=== PATIENT | female | born 1960 | race Caucasian/White ===

== ENCOUNTER 2016-08-20 13:43 | Emergency (ER) | payer OTHER ==
[2016-08-20] MEDS ORDERED: SODIUM CHLORIDE 0.9% 1,000 ML IV STA (14:52)
[2016-08-20] MEDS ORDERED: ONDANSETRON 4 MG/2 ML VIAL IVP STA (14:52)
--- NOTE | 2016-08-20 14:57 | ED ---
General Adult HPI - General Chief complaint: Upper Respiratory Infection Stated complaint: NVD Time Seen by Provider: 08/20/16 14:38 Source: patient, RN notes reviewed Mode of arrival: ambulatory Limitations: no limitations - History of Present Illness Initial comments: Patient is a 56-year-old female who presents emergency room today with multiple complaints. Patient does admit that she has had symptoms of nausea with diarrhea off and on over the last 6 weeks. Patient admits that she's also felt congested with cough and positive sputum production on and off over the last 6 weeks. States she's follow-up the family doctor's had been on 2 rounds of antibiotics with no relief of his symptoms. She states feels like she is not getting any better. She does admit to some cramping in her abdomen. She denies any other complaints or associated symptoms at this time. Patient denies any recent fever, chills, shortness of breath, chest pain, vomiting, numbness or tingling, dysuria or hematuria, constipation, headaches or visual changes, or any other complaints. - Related Data Home Medications Medication Instructions Recorded Confirmed traMADol HCl [Ultram] 50 mg PO BID PRN 07/16/16 08/20/16 Previous Rx's Medication Instructions Recorded Ondansetron Odt [Zofran ODT] 4 mg PO Q8HR PRN #15 tab 08/20/16 Allergies Allergy/AdvReac Type Severity Reaction Status Date / Time codeine Allergy Vomiting Verified 08/20/16 15:08 iron dextran complex Allergy Anaphylaxis Verified 08/20/16 15:08 [From Infed] Review of Systems ROS Statement: Those systems with pertinent positive or pertinent negative responses have been documented in the HPI. ROS Other: All systems not noted in ROS Statement are negative. Past Medical History History of Any Multi-Drug Resistant Organisms: None Reported Past Surgical History: Appendectomy, Bariatric Surgery, Cholecystectomy, Orthopedic Surgery Past Psychological History: No Psychological Hx Reported Smoking Status: Never smoker General Exam - General Exam Comments Initial Comments: General: The patient is awake and alert, in no distress, and does not appear acutely ill. Eye: Pupils are equal, round and reactive to light, extra-ocular movements are intact. No nystagmus. There is normal conjunctiva bilaterally. No signs of icterus. Ears, nose, mouth and throat: There are moist mucous membranes and no oral lesions. Neck: The neck is supple, there is no tenderness or JVD. Cardiovascular: There is a regular rate and rhythm. No murmur, rub or gallop is appreciated. Respiratory: Lungs are clear to auscultation, respirations are non-labored, breath sounds are equal. No wheezes, stridor, rales, or rhonchi. Gastrointestinal: Soft, non-distended, non-tender abdomen without masses or organomegaly noted. There is no rebound or guarding present. No CVA tenderness. Bowel sounds are unremarkable. Musculoskeletal: Normal ROM, no tenderness. Strength 5/5. Sensation intact. Pulses equal bilaterally 2+. Neurological: A&O x 3. CN II-XII intact, There are no obvious motor or sensory deficits. Coordination appears grossly intact. Speech is normal. Skin: Skin is warm and dry and no rashes or lesions are noted. Psychiatric: Cooperative, appropriate mood & affect, normal judgment. Limitations: no limitations Course Vital Signs 08/20/16 08/20/16 14:03 15:29 Temperature 100.3 F H 98.4 F Pulse Rate 77 68 Respiratory 18 15 Rate Blood Pressure 123/75 125/78 O2 Sat by Pulse 98 Oximetry Medical Decision Making - Medical Decision Making Patient reexamined at this time shows no signs of distress. Patient resting comfortably in the stretcher. States she does feel better after IV fluids and nausea medication here the emergency room. She does admit that the symptoms been off and on over the last 6 weeks. Patient's chest x-rays unremarkable. Bowel x-rays is nonspecific. Patient's labs been reviewed. Patient feeling better with nausea medication will be discharged home in same. Was discussed about the possibility of acid reflux causing her cough. Advised to try omeprazole prior psych for this. Advised to follow-up the family doctor over the next 2 days. Will be given nausea medication to go home with. Advised return if any symptoms increase or worsen. - Lab Data Result diagrams: 08/20/16 15:30 08/20/16 15:30 Lab Results 08/20/16 08/20/16 08/20/16 Range/Units 15:30 15:30 15:30 WBC 5.0 (3.8-10.6) k/uL RBC 5.17 (3.80-5.40) m/uL Hgb 11.9 (11.4-16.0) gm/dL Hct 41.0 (34.0-46.0) % MCV 79.3 L (80.0-100.0) fL MCH 23.0 L (25.0-35.0) pg MCHC 29.0 L (31.0-37.0) g/dL RDW 26.9 H (11.5-15.5) % Plt Count 365 (150-450) k/uL Neutrophils % 79 % Lymphocytes % 15 % Monocytes % 4 % Eosinophils % 1 % Basophils % 0 % Neutrophils # 3.9 (1.3-7.7) k/uL Lymphocytes # 0.7 L (1.0-4.8) k/uL Monocytes # 0.2 (0-1.0) k/uL Eosinophils # 0.0 (0-0.7) k/uL Basophils # 0.0 (0-0.2) k/uL Hypochromasia Marked Poikilocytosis Slight Anisocytosis Marked Microcytosis Marked Sodium 142 (137-145) mmol/L Potassium 4.0 (3.5-5.1) mmol/L Chloride 105 (98-107) mmol/L Carbon Dioxide 25 (22-30) mmol/L Anion Gap 12 mmol/L BUN 14 (7-17) mg/dL Creatinine 0.61 (0.52-1.04) mg/dL Est GFR (MDRD) Af Amer >60 (>60 ml/min/1.73 sqM) Est GFR (MDRD) Non-Af >60 (>60 ml/min/1.73 sqM) Glucose 107 H (74-99) mg/dL Plasma Lactic Acid Nicholas 0.7 (0.7-2.0) mmol/L Calcium 8.6 (8.4-10.2) mg/dL Total Bilirubin 0.4 (0.2-1.3) mg/dL AST 20 (14-36) U/L ALT 34 (9-52) U/L Alkaline Phosphatase 122 (38-126) U/L Total Protein 6.4 (6.3-8.2) g/dL Albumin 3.5 (3.5-5.0) g/dL Amylase 40 (30-110) U/L Lipase 93 (23-300) U/L Disposition Clinical Impression: Nausea, Acute diarrhea, Cough Disposition: HOME SELF-CARE Condition: Good Instructions: Acute Nausea and Vomiting (ED) Additional Instructions: Please use medication as prescribed follow-up family doctor over the next 2-5 days. Please return to emergency room if any symptoms increase or worsen or for any other concerns. Prescriptions: Ondansetron Odt [Zofran ODT] 4 mg PO Q8HR PRN #15 tab PRN Reason: Nausea Time of Disposition: 16:39
[2016-08-20 15:30] VITALS: BP 125/78; TEMP 98.4
--- NOTE | 2016-08-20 16:05 | XR ---
EXAMINATION TYPE: XR chest 2V DATE OF EXAM: 08/20/2016 3:59 PM COMPARISON: 06/27/2010 INDICATION: Congestion body aches TECHNIQUE: Frontal and lateral views of the chest are obtained. FINDINGS: The heart size is normal. The pulmonary vasculature is normal. The lungs are clear. IMPRESSION: 1. No acute pulmonary process.
--- NOTE | 2016-08-20 16:08 | XR ---
EXAMINATION TYPE: XR KUB DATE OF EXAM: 08/20/2016 3:59 PM COMPARISON: 06/27/2010 INDICATION: Pain TECHNIQUE: Single view abdomen upright view FINDINGS: There is a normal bowel gas pattern. Psoas margins are normal. No organomegaly is present. No suspicious air-fluid levels or differential air-fluid levels are present. No free air is present. No mass effect is evident. IMPRESSION: 1. Unremarkable Abdomen
[2016-08-20 16:11] LABS: Anisocytosis Marked; Basophils % (A) 0 %; CH 23.3; Eosinophils % (A) 1 %; HDW 3.44; HGB 11.9 gm/dL (11.4-16.0); Hypochromasia Marked; Luc # (Auto) 0.08; Luc % (Auto) 2; Lymphocytes # (A) 0.7 k/uL (1.0-4.8); Lymphocytes % (A) 15 %; MCV 79.3 fL (80.0-100.0); Mean Platelet Volume 6.3; Microcytosis Marked; Monocytes # (A) 0.2 k/uL (0-1.0); Monocytes % (A) 4 %; Neutrophils # (A) 3.9 k/uL (1.3-7.7); Neutrophils % (A) 79 %; Poikilocytosis Slight; RBC 5.17 m/uL (3.80-5.40); WBC (Perox) 5.38
[2016-08-20 16:12] LABS: RDW 26.9 % (11.5-15.5)
[2016-08-20 16:13] LABS: ALT 34 U/L (9-52); AST 20 U/L (14-36); Alkaline Phosphatase 122 U/L (38-126); Amylase 40 U/L (30-110); Anion Gap 12 mmol/L; Blood Urea Nitrogen 14 mg/dL (7-17); Calcium 8.6 mg/dL (8.4-10.2); Carbon Dioxide 25 mmol/L (22-30); Chloride 105 mmol/L (98-107); Glucose 107 mg/dL (74-99); Non-African American GFR(MDRD) >60 (>60 ml/min/1.73 sqM); Sodium 142 mmol/L (137-145); Total Bilirubin 0.4 mg/dL (0.2-1.3); Total Protein 6.4 g/dL (6.3-8.2)
[2016-08-20 17:09] VITALS: PULSE 69; RESP 16
== END 2016-08-20 17:09 | disposition home or self-care (01) ==
LOC: EC 13:43
DX: R11.2 Nausea with vomiting, unspecified (principal); R19.7 Diarrhea, unspecified; R05 Cough; Z88.5 Allergy status to narcotic agent; Z88.8 Allergy status to other drugs, medicaments and biological substances
CPT/HCPCS: 99284; 96374; 96361; 36415; 80053; 82150; 83605; 83690; 85025; 71020; 74000; J2405

== ENCOUNTER → 2016-09-10 | Outpatient (CLI) | payer OTHER ==
--- NOTE | 2016-09-11 08:43 | MR ---
EXAMINATION TYPE: MR lumbar spine wo con DATE OF EXAM: 09/10/2016 5:25 PM COMPARISON: 01/09/2010 HISTORY: Back pain TECHNIQUE: Multiplanar, multisequence images of the lumbar spine were acquired. L1-L2: Normal disc appearance without desiccation. No herniation, protrusion or disc bulging. No ca nal stenosis is present. Foramina are patent bilaterally. L2-L3: Disc desiccation with interval development of a broad-based central disc herniation and modera te effacement of thecal sac. Moderate facet arthropathy and mild bilateral foraminal encroachment. L3-L4: No disc herniation or canal stenosis. There is facet arthropathy. Mild left lateral disc bulgi ng with mild left foraminal encroachment. L4-L5: Disc desiccation with broad-based central disc protrusion and moderate effacement of thecal sa c. This is progressed from the previous exam with mild central stenosis. Moderate facet arthropathy a nd mild bilateral foraminal encroachment greater on the right L5-S1: Facet arthropathy and degenerative disc disease. No canal stenosis or foraminal encroachment. Stable broad-based right paracentral and lateral disc bulging Lumbar segments are intact. No paraspinal masses are identified. Conus medullaris has a normal appe arance. IMPRESSION: 1. Interval development of a focal central disc herniation L2-L3 with moderate effacement of thecal s ac 2. Interval development of left lateral disc bulging L3-L4 with mild foraminal encroachment but no ne rve root impingement. 3. Broad-based disc bulge or protrusion L4-L5 progressed with facet arthropathy and evidence of mild central canal stenosis. 4. Stable right paracentral disc bulging L5-S1 no canal stenosis. No nerve root impingement.
== END | disposition home or self-care (01) ==
LOC: RADMRIMAIN 16:40
PROVIDERS: ATTEND Anesthesiology Pain Medicine
DX: M48.06 Spinal stenosis, lumbar region (principal); M51.17 Intervertebral disc disorders with radiculopathy, lumbosacral region; M46.96 Unspecified inflammatory spondylopathy, lumbar region
CPT/HCPCS: 72148

== ENCOUNTER → 2017-03-04 | Outpatient (CLI) | payer OTHER ==
--- NOTE | 2017-03-05 08:18 | MM ---
Reason for exam: screening (asymptomatic). Last mammogram was performed 5 years and 1 month ago. History: Patient is postmenopausal. Physical Findings: A clinical breast exam by your physician is recommended on an annual basis and results should be correlated with mammographic findings. MG Screening Mammo w CAD Bilateral CC and MLO view(s) were taken. Prior study comparison: February 05, 2012, bilateral digital screening mammo w/CAD. There are scattered fibroglandular densities. Finding: There are typically benign vascular calcifications in the outer quadrant, posterior position of both breasts. There is no discrete abnormality. ASSESSMENT: Benign, BI-RAD 2 RECOMMENDATION: Routine screening mammogram of both breasts in 1 year.
== END | disposition home or self-care (01) ==
LOC: RADMAMWWP 14:43
PROVIDERS: ATTEND Family Medicine
DX: Z12.31 Encounter for screening mammogram for malignant neoplasm of breast (principal)

== ENCOUNTER → 2017-04-09 | Outpatient (CLI) | payer OTHER ==
--- NOTE | 2017-04-10 10:43 | ECHOF ---
Referral Reason:I34.1 hx mitrovalve prolapse MEASUREMENTS -------- HEIGHT: 165.1 cm WEIGHT: 77.1 kg BP: 127/60 RVIDd: 2.9 cm (< 3.3) IVSd: 1.2 cm (0.6 - 1.1) LVIDd: 4.1 cm (3.9 - 5.3) LVPWd: 0.9 cm (0.6 - 1.1) EDV(Teich): 74 ml IVSs: 1.5 cm LVIDs: 3.0 cm LVPWs: 1.5 cm %IVS Thck: 20 % ESV(Teich): 34 ml EF(Teich): 54 % %FS: 27 % SV(Teich): 40 ml LALs A4C: 4.9 cm LAAs A4C: 14.7 cm LAESV A-L A4C: 37 ml LAESV MOD A4C: 37 ml LALs A2C: 5.5 cm LAAs A2C: 17.3 cm LAESV A-L A2C: 46 ml LAESV MOD A2C: 42 ml LAESV(A-L): 44 ml LAESV Index (A-L): 23.54 ml/m Ao Diam: 2.7 cm (2.0 - 3.7) AV Cusp: 1.8 cm (1.5 - 2.6) LA Diam: 2.7 cm (2.7 - 3.8) MV EXCURSION: 21.258 mm (> 18.000) MV EF SLOPE: 92 mm/s (70 - 150) EPSS: 0.6 cm MV E Kristopher: 0.58 m/s MV DecT: 348 ms MV Dec [place]: 1.7 m/s MV A Kristopher: 0.51 m/s MV E/A Ratio: 1.15 MV PHT: 101 ms E/E': 9.07 E': 0.06 m/s AV Vmax: 1.37 m/s AV maxP.48 mmHg TR Vmax: 2.59 m/s TR maxP.76 mmHg RAP: 5.00 mmHg RVSP: 31.76 mmHg FINDINGS -------- Sinus rhythm. This was a technically adequate study. Patient was in moderate pain during test. Overall left ventricular systolic function is normal with, an EF between 55 - 60 %. The right ventricle is normal in size and function. Normal LA size by volume 22+/-6 ml/m2. The right atrium is normal in size. Aortic valve is trileaflet and is mildly thickened. There is no evidence of aortic regurgitation. There is no evidence of aortic stenosis. Mild mitral annular calcification present. There is trace to mild mitral regurgitation. Trace tricuspid regurgitation present. There is no evidence of pulmonary hypertension. The right ventricular systolic pressure, as measured by Doppler, is 31.76mmHg. The pulmonic valve was not well visualized. The aortic root size is normal. Normal inferior vena cava with normal inspiratory collapse consistent with estimated right atrial pressure of 5 mmHg. The pericardium is normal. There is no pericardial effusion. CONCLUSIONS -------- 1. Sinus rhythm. 2. There is no evidence of pulmonary hypertension. 3. The right ventricular systolic pressure, as measured by Doppler, is 31.76mmHg. 4. The pulmonic valve was not well visualized. 5. The aortic root size is normal. 6. There is no pericardial effusion. 7. This was a technically adequate study. 8. Patient was in moderate pain during test. 9. Overall left ventricular systolic function is normal with, an EF between 55 - 60 %. 10. Normal LA size by volume 22+/-6 ml/m2. 11. Aortic valve is trileaflet and is mildly thickened. 12. Mild mitral annular calcification present. 13. There is trace to mild mitral regurgitation. 14. Trace tricuspid regurgitation present. CUSHION COVER INSPECTOR: Jose Ruvalcaba RDCS
== END | disposition home or self-care (01) ==
LOC: RADECHMAIN 15:38
PROVIDERS: ATTEND Family Medicine
DX: I08.3 Combined rheumatic disorders of mitral, aortic and tricuspid valves (principal)
CPT/HCPCS: 93306

== ENCOUNTER 2017-07-07 06:29 | Day surgery (SDC) | payer OTHER ==
[2017-07-01 16:02] VITALS: BMI 29.9
[2017-07-07] MEDS ORDERED: LACTATED RINGERS 1,000 ML IV ONE (06:53)
[2017-07-07 06:56] VITALS: TEMP 97
[2017-07-07 07:04] LABS: Glucose,Whole Blood 91 mg/dL (75-99)
[2017-07-07] MEDS ORDERED: LACTATED RINGERS 1,000 ML IV SCH (07:30)
--- NOTE | 2017-07-07 08:07 | P.PCN ---
Date of Procedure: 07/07/17 Surgeon: Pedrito Majano Pathology: none sent Condition: stable Disposition: PACU Description of Procedure: PREOPERATIVE DIAGNOSIS: Lumbar spondylosis without myelopathy and facet arthropathy. POSTOPERATIVE DIAGNOSIS: Lumbar spondylosis without myelopathy and facet arthropathy. PROCEDURE DESCRIPTION: Patient presents for L3-L4, L4-L5 and L5-S1 diagnostic medial branch blocks under fluoroscopic guidance. The procedure is performed using fluoroscopic guidance during needle placement to assure proper position and maximize safety. ANESTHESIA: Local with 1% lidocaine; conscious sedation with Versed only EBL: Minimal PROCEDURE INDICATION: Patient with lumbar facet arthropathy signs and symptoms, here for diagnostic medial branch block #1 after failing conservative therapy. Pt does not take any blood thinning medications. PROCEDURE DESCRIPTION: The patient was seen and identified in the preoperative area. Risks, benefits, complications, and alternatives were discussed with the patient (including but not limited to incomplete pain relief, bleeding, infection, nerve damage, and allergies to medications), the patient agreed to proceed with the procedure and signed the consent after all questions were answered. Patient was taken to the OR and time out was completed to verify proper patient, position, laterality of pain, and allergies. Pt was placed in the prone position and a pillow was placed under the abdomen to reduce lumbar lordosis. The lumbosacral area was prepped and draped in the usual sterile fashion. Using oblique fluoroscopy, the eye of the "Chay dog" of right L4 vertebral body, which corresponds to the path of the medial branch originating from the level above, which is L3 in this case, was identified. Subsequently, a 22-gauge 3.5-inch spinal needle was inserted under fluoroscopic guidance toward the eye of the "Chay dog" of the right L4 vertebral body, corresponding to the junction of the superior articular process and the transverse process of the pedicle of the same level. After needle tip confirmation on lateral view and after negative aspiration for CSF and blood and without paresthesias, 1 mL of a 6 ml solution of 0.5% preservative-free bupivacaine and 40 mg Kenalog was injected. Subsequently the needle was withdrawn intact and the same procedure was repeated for the right L4, right L5, left L3, left L4, and left L5 medial branches which together with right L3 medial branch correspond to the sensory innervation of the bilateral L3-L4, L4-L5, and L5-S1 facet joints. Needle was withdrawn intact after each injection. At the end of the procedure, the skin was cleansed and bandages were applied. COMPLICATIONS: None. DISPOSITION/PLAN: The patient taken to the recovery area after the procedure in a stable condition for observation. Patient was reexamined prior to discharge and there were no issues. Patient was discharged home, accompanied by an adult, after meeting discharged criteria. Discharge instructions were give to the patient by the staff. Patient was specifically instructed not to drive today and to rest for the rest of the day. Will plan to repeat LMBB at next visit.
[2017-07-07 08:12] VITALS: BP 98/55; PULSE 65; RESP 20
[2017-07-07] MEDS ORDERED: IV FLUID CONTINUATION 1,000 ML IV ONE (08:12)
--- NOTE | 2017-07-07 09:28 | FL ---
EXAMINATION TYPE: FL guided pain mgmt statistic DATE OF EXAM: 07/07/2017 FLUOROSCOPY Fluoroscopy time of 24 seconds was used during lumbar facet injections. 6 image/s document/s the pro cedure.
== END 2017-07-07 08:05 | disposition home or self-care (01) ==
LOC: ORPAIN 06:29
PROVIDERS: ATTEND Anesthesiology
DX: G89.29 Other chronic pain (principal); M51.36 Other intervertebral disc degeneration, lumbar region; M47.816 Spondylosis without myelopathy or radiculopathy, lumbar region; M46.96 Unspecified inflammatory spondylopathy, lumbar region; M46.1 Sacroiliitis, not elsewhere classified; Z88.5 Allergy status to narcotic agent; Z88.8 Allergy status to other drugs, medicaments and biological substances
CPT/HCPCS: 64493; 64494; 64495; J2250; J3301; 99152

== ENCOUNTER → 2017-08-24 | Outpatient (CLI) | payer OTHER ==
[2017-08-24 14:28] VITALS: BP 137/92; PULSE 110; RESP 16; TEMP 98.2
--- NOTE | 2017-08-24 15:14 | P.PN ---
Subjective Progress Note Date: 08/24/17 This is follow-up visit for this patient with a history of severe and chronic low back pain secondary to lumbar degenerative disc diseases , lumbar spondylosis with facet arthropathy, we have done , diagnostic medial branch blocks 2, she reported that she had no benefit from the diagnostic medial branch blockade should her pain was the same before and after The block for this reason she is not in good candidate to have radiofrequency ablation of the medial branch, I explained to the patient that she could be good candidate to have lumbar epidural steroid injections, but patient concerned about side effect of the steroid , ( weight gain ) equals she is trying to lose weight and she doesn't want to try any epidural steroid injection, Patient denies any motor or sensory deficit , patient denies any fever or night sweats, denies any change in the bowel movements or urination Physical Examinations : 1-Constitutiona : Cooperative , not in acute distress . 2-HEENT : nech ; supple , no Lymphadenopathy , no Thyromegaly , normal thyroid size . eyes : no ptosis , no icterus, no photophobia . ENT : normal of hearing , normal oropharynx , no Thrush . 3- Respiratory : Chest clear to auscultations Bilaterally , no wheezing , no Rhonchi . 4- Cardiovascular : regular rate and rhythem , S1 , S2 , no S3 , no S4. 5- Gastrointestinal : abdomen soft no tenderness , bowel sounds positive all four quadrents , no organomegally . 6- Genitourinary : Defferred . 7- neurologic : Cranial nerve II to XII intact , no focal neurological deffecit . 8-psychatric : alert , oriented X 3 , appropriate affect , intact judgment and insight . 9-Lymphatic : no Lymphadenopathy . 10- musculoskeltal : exams of the Lumber spine = motor strength lower extremities ,thigh and legs .5/5 deep tendon reflexes : normal Knee Jerk , normal ankle Jerk . lumber facet Loading Test positive strait leg raising test positive at 30 degree , RT ,LT , Fabere test positive RT and positive LT . Range of motion: Range of motion in flexion of the lumbar spine 30 degrees Range of motion range of motion of extension of the lumbar spine 10 Assessment and plan = Chronic low back pain secondary to lumbar degenerative disc disease , lumbar spondylosis with facet arthropathy without myelopathy , Patient had negative results ,after 2 diagnostic medial branch block for this reason she is not a candidate for radiofrequency ablation of the medial. Patient refused to have lumbar epidural steroid injections secondary to side effect of the steroid Patient refused to have surgery and this time , and she prefers medication management - diagnoses, prognosis, and treatment options including but not limited to physical therapy, surgical interventions, interventional therapies , and medication management including narcotics and adjuvant medication were discussed with the patient and all the questions answered Patient could benefit from Neurontin 100 mg 3 times a day ,and Mobic 7.5 mg twice a day, prescription refill was given ,she will follow up in the pain clinic in 2 months Objective - Vital Signs Vital signs: Vital Signs Temp 98.2 F 08/24/17 14:19 Pulse 110 H 08/24/17 14:19 Resp 16 08/24/17 14:19 BP 137/92 08/24/17 14:19 Pulse Ox 96 08/24/17 14:19 Intake & Output 08/23/17 08/24/17 08/24/17 18:59 06:59 18:59 Weight 75.75 kg
== END ==
LOC: PNWHC3 14:04
PROVIDERS: ATTEND Specialist
DX: G89.29 Other chronic pain (principal); M54.5 Low back pain; M51.36 Other intervertebral disc degeneration, lumbar region; M47.816 Spondylosis without myelopathy or radiculopathy, lumbar region; M46.86 Other specified inflammatory spondylopathies, lumbar region; Z79.52 Long term (current) use of systemic steroids; Z79.1 Long term (current) use of non-steroidal anti-inflammatories (NSAID); Z79.899 Other long term (current) drug therapy
CPT/HCPCS: 99211

== ENCOUNTER 2017-10-09 09:40 | Day surgery (SDC) | payer OTHER ==
[2017-10-06 11:44] VITALS: BMI 27.4
[~2017-10-09 09:40] MED LIST: LACTATED RINGERS 1,000 ML IV SCH
[2017-10-09 10:14] VITALS: TEMP 98.4
[2017-10-09] MEDS ORDERED: LIDOCAINE 1% 20 ML VIAL (10MG/ML) FOR IV START INTRADERMA ONE (10:20)
[2017-10-09 10:21] LABS: Glucose,Whole Blood 88 mg/dL (75-99)
--- NOTE | 2017-10-09 10:39 | P.GSHP ---
History of Present Illness H&P Date: 10/09/17 Chief Complaint: Screening colonoscopy This is a 57-year-old female referred from Dr. Lino Mccormick. Patient rents today for screening colonoscopy. She denies any significant GI complaints. Past Medical History Past Medical History: Osteoarthritis (OA), Seizure Disorder Additional Past Medical History / Comment(s): DDD WITH LOWER BACK PAIN - PAIN CLINIC PROCEDURES., SEIZURES CAUSED BY HYPOGLYCEMIA- LAST SEIZURE 2007, MITRAL VALVE PROLAPSE, HOLE IN RIGHT EAR DRUM - CAUSES BALANCE PROBLEMS., ANEMIA- STATES SHE DOES NOT MAKE IRON- HX OF INFUSIONS WITH DR CARR. History of Any Multi-Drug Resistant Organisms: None Reported Past Surgical History: Bariatric Surgery, Cholecystectomy, Orthopedic Surgery, Tubal Ligation Additional Past Surgical History / Comment(s): LT BUNIONECTOMY, GASTRIC BYPASS ( 1997). LT KNEE SCOPE. LT EAR SX. RT HAND SX. COLONOSCOPY AND EGD Past Anesthesia/Blood Transfusion Reactions: No Reported Reaction, Motion Sickness Past Psychological History: No Psychological Hx Reported Smoking Status: Former smoker Past Alcohol Use History: Occasional Additional Past Alcohol Use History / Comment(s): QUIT SMOKING 2012, SMOKED 1/2 PPD ., SMOKED OFF & ON FOR 20 YEARS. Past Drug Use History: None Reported - Past Family History Brother(s) Family Medical History: Deep Vein Thrombosis (DVT) Mother Family Medical History: No Reported History Medications and Allergies Home Medications Medication Instructions Recorded Confirmed Type Phentermine HCl [Adipex-P] 37.5 mg PO QAM 07/01/17 10/09/17 History [id number] 1 tab PO BID PRN 08/24/17 10/09/17 History [Excedrin] Gabapentin [Neurontin] 100 tab PO Q8HR 08/24/17 10/09/17 History Meloxicam [Mobic] 7.5 mg PO BID 08/24/17 10/09/17 History Allergies Allergy/AdvReac Type Severity Reaction Status Date / Time codeine Allergy Vomiting Verified 10/09/17 10:05 iron dextran complex Allergy Anaphylaxis Verified 10/09/17 10:05 [From Infed] Surgical - Exam Vital Signs Temp Pulse Resp BP Pulse Ox 98.4 F 81 16 113/73 95 10/09/17 10:12 10/09/17 10:12 10/09/17 10:12 10/09/17 10:12 10/09/17 10:12 - General well developed, no distress - Eyes PERRL - ENT normal pinna - Neck no masses - Respiratory normal expansion - Cardiovascular Rhythm: regular - Abdomen Abdomen: soft, non tender Assessment and Plan Assessment: We'll perform screening colonoscopy.
[2017-10-09] MEDS ORDERED: PROPOFOL 10 MG/ML 20 ML VIAL IV ONE (10:46)
[2017-10-09] MEDS ORDERED: LIDOCAINE 1% INJ 10MG/ML (20 ML MDV) ONE (10:46)
[2017-10-09 11:32] VITALS: BP 110/68; PULSE 68; RESP 18
--- NOTE | 2017-10-21 13:56 | P.OP ---
Date of Procedure: 10/09/17 Preoperative Diagnosis: Screening colonoscopy Postoperative Diagnosis: Mild diverticulosis Internal and external hemorrhoids Procedure(s) Performed: Colonoscopy Anesthesia: MAC Surgeon: Fredi Rosado Pathology: none sent Condition: stable Disposition: PACU Description of Procedure: Patient's placed on the endoscopy table lateral position. She received IV sedation. Digital rectal exam was performed which revealed mild internal and external hemorrhoids. The flexor colonoscope was then placed patient anus passed throughout the entire colon. The ileocecal valve was visualized. The cecum, ascending and transverse colon appeared normal. The scope was then brought back and the descending colon and there was mild diverticulosis noted in the descending and sigmoid colon scope was then brought back the rectum and this appeared normal. Scope was withdrawn for patient.
== END 2017-10-09 11:37 | disposition home or self-care (01) ==
LOC: ORWHC2ENDO 09:40
PROVIDERS: ATTEND Surgery
DX: Z12.11 Encounter for screening for malignant neoplasm of colon (principal); K57.30 Diverticulosis of large intestine without perforation or abscess without bleeding; K64.8 Other hemorrhoids; K64.4 Residual hemorrhoidal skin tags; M19.90 Unspecified osteoarthritis, unspecified site; I34.1 Nonrheumatic mitral (valve) prolapse; G40.909 Epilepsy, unspecified, not intractable, without status epilepticus; Z98.84 Bariatric surgery status; Z90.49 Acquired absence of other specified parts of digestive tract; Z87.891 Personal history of nicotine dependence; Z79.82 Long term (current) use of aspirin; Z88.5 Allergy status to narcotic agent; Z79.1 Long term (current) use of non-steroidal anti-inflammatories (NSAID); Z79.899 Other long term (current) drug therapy; Z88.8 Allergy status to other drugs, medicaments and biological substances
CPT/HCPCS: 45378; J2001; J2704

== ENCOUNTER → 2017-10-19 | Outpatient (CLI) | payer OTHER ==
[2017-10-19 13:31] VITALS: BP 120/70; PULSE 67; RESP 16; TEMP 98.3
--- NOTE | 2017-10-19 14:26 | P.PN ---
Progress Note - Text Progress Note Date: 10/19/17 This is a 57-year-old female with history of lower back pain due to lumbar spondylosis without myelopathy. The patient denies any bowel or bladder dysfunction however she feels weakness in her lower extremities. The patient had lumbar medial branch block which did not improve her pain. The patient refuses to have any steroid injection including epidural steroid injection because of her fear of steroids. She has been having increasing muscle spasms in her legs. By physical exam she is alert oriented 3 Neuro exam of the lower extremities showed decreased right hip flexion due to increasing back pain. Straight leg raising test negative bilaterally, she has normal and symmetrical deep tendon reflexes bilaterally. In addition to above, 13-point review of systems is also negative for chest pain , shortness of breath, changes in vision, changes in hearing, new onset weakness , abdominal pain, diarrhea, extreme fatigue, malaise, fever, skin changes, homicidal or suicidal ideation, or bowel or bladder incontinence. Vital Signs: Reviewed in EMR Gen: WDWN, AAOx3, NAD HEENT: NCAT, EOMI, hearing grossly normal Pulm: resp unlabored Abd: soft, NT, ND Neck: supple, trachea midline ROM in flexion cervical spine: reduced ROM in extension cervical spine: reduced Cervical paravertebral tenderness: ++ Cervical Facet tenderness: Spurling's: + bilateral, worse R side Upper extremity: decreased internal grinder set up operator strength bilaterally Neuro: CN II-XII grossly intact, muscle strength upper extremities 4/5 bilaterally Imaging: Reviewed in EMR Assessment: 1-lumbar spondylosis without myelopathy 2-lumbar degenerative disc disease 3-lumbar facet arthropathy not responsive to medial branch block Plan: 1. Explanation: Opioid and psychological risk scores were reviewed. Diagnoses , prognoses, and multiple treatment options including but not limited to physical therapy, interventional therapies, adjuvant medical therapies, narcotic medication therapies, and surgery were discussed with the patient and all questions were answered to the patient's satisfaction. 2. Opioid agreement: no opioids prescribed 3. Counseling: The patient was counseled extensively on SMOKING CESSATION, BODY MASS INDEX, EXERCISE. Specifically, the patient was instructed regarding the importance of smoking cessation, obesity, and exercise in the context of both chronic pain and overall health. 4. Procedures: None 5. Consultations: None 6. Investigations: None 7. Medications: Continue Mobic after meals, and Zanaflex 2 mg twice a day, increase his Neurontin to 300 mg twice and then 3 times a day 8. Disposition: Follow up in the clinic clinic in 4 weeks PQRS measures: 1-Patient's medications are documented in the chart. 2-Tobacco use is negative 3-Patient has had a pneumococcal vaccine. 4-Advanced care planning discussed, patient unable to give. 5-Opioid contract NOT signed with the patient as we do not prescribe fo rher 6-Pain positive, follow-up visit or procedure scheduled 7-Patient's blood pressure measured and documented, within normal limits 8-Patient's weight was measured, and body mass index ABOVE the normal limits, and counseling was done. Patient instructed to follow up with PCP. 9-Patient WAS NOT identified as an unhealthy alcohol user.
== END ==
LOC: PNWHC3 13:08
PROVIDERS: ATTEND Anesthesiology
DX: M51.36 Other intervertebral disc degeneration, lumbar region (principal); M47.816 Spondylosis without myelopathy or radiculopathy, lumbar region; M46.86 Other specified inflammatory spondylopathies, lumbar region
CPT/HCPCS: 99211

== ENCOUNTER → 2017-11-12 | Outpatient (CLI) | payer OTHER ==
--- NOTE | 2017-11-12 14:04 | CT ---
EXAMINATION TYPE: CT soft tissue neck w con DATE OF EXAM: 11/12/2017 HISTORY: Lump in throat COMPARISON: NONE CT DLP: 288.1 mGycm. Automated Exposure Control for Dose Reduction was Utilized. TECHNIQUE: CT scan of the neck is performed with IV Contrast, patient injected with 100 mL of Isovue 300, axial images are obtained, coronal and sagittal reformatted images are reviewed. FINDINGS: Airway: Density is identified within the valleculae that could relate to secretions or mass. There is symmetric enlargement of the tonsils without significant narrowing of the oropharynx. Fossa of De Leon saavedra and torus tubarius are unremarkable. Piriform sinuses are maintained. True and false vocal cor ds are unremarkable. No polyp in the proximal visualized trachea or endoluminal mass. Parotid/submandibular glands: Parotid and submandibular glands are symmetric. Carotid/Vascular Structures: Carotid and vertebral arteries are patent without hemodynamically signif icant stenosis in their visualized portions. Osseous Structures: There is near circumferential right maxillary sinus mucosal thickening and mild e thmoid mucosal thickening. Remaining visualized paranasal sinuses are well aerated. Postsurgical quevedo ges of the nasopharynx are noted. Right mastoid air cells are hypoplastic. No mastoid opacification b ilaterally. Osseous structures are intact with mild degenerative changes of the cervical spine. Other: No adenopathy within the neck. IMPRESSION: 1. Soft tissue fullness within the vallecula that could relate to secretions or mass. Direct visualiz ation is recommended with laryngoscopy. 2. Moderate maxillary and mild ethmoidal paranasal sinus disease.
--- NOTE | 2017-11-12 14:26 | CT ---
EXAMINATION TYPE: CT iac wo con DATE OF EXAM: 11/12/2017 COMPARISON: NONE HISTORY: frequent Lt ear infections CT DLP: 150 mGycm. Automated Exposure Control for Dose Reduction was Utilized. TECHNIQUE: CT scan of internal auditory canal is performed without contrast, thin cut axial images ar e obtained, coronal reformatted images are also reviewed. FINDINGS: The external auditory canals are patent bilaterally. Mastoid air cells show no evidence of abnormal opacification bilaterally. The middle ear ossicles are symmetric and unremarkable. There is no evidence of suspicious surrounding soft tissue density to suggest cholesteatoma. The scutum is preserved bilaterally. The cochlea and the semicircular canals are symmetric and unremarkable. Ves tibular aqueduct and internal carotid canal appear unremarkable. Temporomandibular joints are maintained bilaterally. As discussed on the CT soft tissue neck of the s crystal date there is near circumferential mucosal thickening in the visualized portion the right maxilla ry sinus and mild ethmoidal mucosal thickening in the visualized portions of the ethmoid sinuses. The remaining visualized paranasal sinuses are well aerated. Visualized portion brain parenchyma is felt within normal limits. IMPRESSION: 1. No middle ear cavity fluid or evidence of cholesteatoma. External auditory canals and internal aud itory canals are symmetric and unremarkable. No mastoid air cell opacification. 2. Paranasal sinus disease as described in the CT soft tissue neck of the same date (moderate in the right maxillary sinus and mild in the ethmoid sinuses as visualized).
== END | disposition home or self-care (01) ==
LOC: RADCTMAIN 10:59
PROVIDERS: ATTEND Otolaryngology
DX: H92.02 Otalgia, left ear (principal); M79.89 Other specified soft tissue disorders; R22.1 Localized swelling, mass and lump, neck
CPT/HCPCS: 70491; 70480; Q9967

== ENCOUNTER → 2017-11-19 | Outpatient (CLI) | payer OTHER ==
[2017-11-19 12:04] VITALS: BP 131/85; PULSE 102; RESP 18
--- NOTE | 2017-11-19 12:40 | P.PN ---
Progress Note - Text Progress Note Date: 11/19/17 Patient presents to the follow-up visit to the pain clinic with a chief complaint of low back pain and radiating pain into her bilateral lower extremities. Patient had a series of lumbar medial branch blocks that did not provide her with any short-term relief. Patient has complaints of low back pain radiating into her groin as well into her thighs. Pain is bilateral sharp , shooting, and stabbing in nature. Pain is 7/10 in severity. I reviewed patient's MRI with her discussed her diagnosis in detail. Patient has mild thecal effacement at the L2-L3 level secondary to broad-based protruding disc she has neural foraminal stenosis at the L2-3 which will likely correlate with her radiating groin pain. Patient is adamant about not receiving any steroids as she believes it has contributed to her overall waking in the past. I discussed with patient about doing a diagnostic transforaminal epidural steroid injections in order to identify if the root of her groin pain is neuraxial in nature. If so, we would refer patient to a neurosurgeon for potential surgical option. Patient agrees with this plan and would like to proceed with the procedure after discussing the risks and benefits. Patient is tolerating Neurontin well, and has stopped taking Zanaflex. In addition to above, 13-point review of systems is also negative for chest pain , shortness of breath, changes in vision, changes in hearing, new onset weakness , abdominal pain, diarrhea, extreme fatigue, malaise, fever, skin changes, homicidal or suicidal ideation, or bowel or bladder incontinence. Vital Signs: Reviewed in EMR, and stable Gen: WDWN, AAOx3, NAD HEENT: NCAT, EOMI, hearing grossly normal Pulm: resp unlabored Abd: soft, NT, ND Neck: supple, trachea midline Lumbar Spine: tenderness to palpation ROM: Limited flexion extension, pain with flexion and extension Positive straight leg raise bilaterally at 30 with reproduction of symptoms at L2, 3, and 4 Positive facet loading on left greater than right Neuro: CN II-XII grossly intact, muscle strength upper extremities 4/5 bilaterally Imaging: MRI lumbar spine shows thecal sac effacement at L2-3 with bilateral neural foraminal stenosis multilevel facet arthropathy as well as multilevel bulging disks with minimal thecal sac effacement mild spinal stenosis identified from L2 to L4 Assessment: 1. Lumbar spinal stenosis 2. umbar facet arthropathy not responsive to medial branch block Plan: 1. Explanation: Opioid and psychological risk scores were reviewed. Diagnoses , prognoses, and multiple treatment options including but not limited to physical therapy, interventional therapies, adjuvant medical therapies, narcotic medication therapies, and surgery were discussed with the patient and all questions were answered to the patient's satisfaction. 2. Opioid agreement: no opioids prescribed 3. Counseling: The patient was counseled extensively on SMOKING CESSATION, BODY MASS INDEXOnEXERCISE. Specifically, the patient was instructed regarding the importance of smoking cessation, obesity, and exercise in the context of both chronic pain and overall health. 4. Procedures: transforaminal epidural steroid injection, bilateral L2-3, NO STEROID 5. Consultations: If patient has positive diagnostic transforaminal injection will consider referral to neurosurgeon 6. Investigations: Maps appropriate 7 Medications: Continue Mobic after meals, Neurontin to 300 mg 3 times a day 8. Disposition: transforaminal epidural steroid injection at the L2-3 level bilateral QRS measures: 1-Patient's medications are documented in the chart. 2-Tobacco use is negative 3-Patient has had a pneumococcal vaccine. 4-Advanced care planning discussed, patient unable to give. 5-Opioid contract NOT signed with the patient as we do not prescribe fo rher 6-Pain positive, follow-up visit or procedure scheduled 7-Patient's blood pressure measured and documented, within normal limits 8-Patient's weight was measured, and body mass index ABOVE the normal limits, and counseling was done. Patient instructed to follow up with PCP. 9-Patient WAS NOT identified as an unhealthy alcohol user.
== END | disposition home or self-care (01) ==
LOC: PNWHC3 11:45
PROVIDERS: ATTEND Anesthesiology
DX: M48.061 Spinal stenosis, lumbar region without neurogenic claudication (principal); M46.96 Unspecified inflammatory spondylopathy, lumbar region
CPT/HCPCS: 99211

== ENCOUNTER 2017-12-23 08:58 | Day surgery (SDC) | payer OTHER ==
[2017-12-18 14:47] VITALS: BMI 26.6
[2017-12-23 10:16] VITALS: TEMP 97.9
[2017-12-23] MEDS ORDERED: LIDOCAINE 1% 20 ML VIAL (10MG/ML) FOR IV START INTRADERMA ONE (10:18)
[2017-12-23 10:22] LABS: Glucose,Whole Blood 66 mg/dL (75-99)
[2017-12-23] MEDS ORDERED: IV FLUID CONTINUATION 1,000 ML IV ONE (10:41)
[2017-12-23 10:48] VITALS: RESP 18
--- NOTE | 2017-12-23 10:53 | P.PCN ---
Date of Procedure: 12/23/17 Surgeon: Pedrito Majano Pathology: none sent Condition: stable Disposition: PACU Description of Procedure: PREOPERATIVE DIAGNOSIS: Lumbar radiculopathy POSTOPERATIVE DIAGNOSIS: Lumbar radiculopathy PROCEDURE: 1. Transforaminal epidural steroid injection under fluoroscopic guidance at bilateral L2-L3 level. 2. Lumbar epidurogram. ANESTHESIA: Local with 1% lidocaine; IV sedation with Versed and fentanyl. EBL: Minimal PROCEDURE INDICATION: The patient with low back pain and radiculopathy symptoms unresponsive to conservative treatment. Patient has pain only on both sides and gained weight from steroids, and thus will proceed with bilateral L2-L3 transforaminal epidural steroid injections today. No use of blood thinners. PROCEDURE DESCRIPTION / TECHNIQUE: The patient was seen and identified in the preoperative area. Risks, benefits, complications, and alternatives were discussed with the patient (including but not limited to incomplete pain relief, bleeding, infection, nerve damage, and allergies to medications), the patient agreed to proceed with the procedure and signed the consent after all questions were answered. Patient was taken to the OR and time out was completed to verify proper patient, position, laterality of pain, and allergies. Pt was placed in the prone position and a pillow was placed under the abdomen to reduce lumbar lordosis. The lumbosacral area was prepped and draped in the usual sterile fashion. Vital signs were closely monitored during the procedure. Conscious sedation was used during the procedure to decrease patients anxiety. Using oblique fluoroscopy, the chin of the Chay dog at right L2 and left L2 levels were identified, and the skin and deeper tissues just below was localized with 1% lidocaine. Subsequently, a 22-gauge 3.5-inch spinal needle was advanced under a tunneled view fluoroscopic guidance just underneath the chin of the Chay dog at both levels. Under lateral fluoroscopy, the needle was then advanced to the posterior border of the L2-L3 interforaminal space on both sides . After negative aspiration of CSF and blood and with no paresthesias , 1 mL of Isovue-200 contrast dye was injected excellent epidurogram and outlining of the L2 nerve root on both sides. Subsequently, 2 mL of total 4 ml block solution containing 4 mL of PF bupivacaine 0.5% with NO STEROID was injected through each needle. At the end of the procedure, needles were removed intact, skin was cleansed, and bandages were applied. COMPLICATIONS: None COMMENTS: None. DISPOSITION / PLANS: The patient was placed in a supine position and transferred to the recovery area in a stable condition for observation. There was no evidence of lower extremity motor or sensory deficit after the procedure. Patient was discharged from the recovery room after meeting discharge criteria. Home discharge instructions were given to the patient by the staff. The patient was reexamined prior to discharge and there were no issues. The patient will schedule a follow up in clinic in 4-6 weeks to discuss efficacy.
--- NOTE | 2017-12-23 10:53 | FL ---
EXAMINATION TYPE: FL guided pain mgmt statistic DATE OF EXAM: 12/23/2017 CLINICAL HISTORY: Low back pain. TECHNIQUE: Fluoroscopy. COMPARISON: None. FINDINGS: Fluoroscopic guidance was provided during pain relief procedure performed by Dr. Majano . A total of 15 seconds of fluoroscopic time was utilized during the procedure and 7 spot images are ac quired. Images acquired shows needle localization at several levels in the lumbar spine. IMPRESSION: As Above.
[2017-12-23 10:56] VITALS: BP 110/74; PULSE 72
== END 2017-12-23 11:17 | disposition home or self-care (01) ==
LOC: ORPAIN 08:58
PROVIDERS: ATTEND Anesthesiology
DX: M54.16 Radiculopathy, lumbar region (principal); M48.061 Spinal stenosis, lumbar region without neurogenic claudication; E16.2 Hypoglycemia, unspecified; Z79.899 Other long term (current) drug therapy; Z88.8 Allergy status to other drugs, medicaments and biological substances; Z88.5 Allergy status to narcotic agent
CPT/HCPCS: 64483; J2250; J3010; Q9966; 99152

== ENCOUNTER → 2018-01-21 | Outpatient (CLI) | payer OTHER ==
[2018-01-21 12:48] VITALS: BP 140/99; PULSE 94; RESP 16; TEMP 98
--- NOTE | 2018-01-21 12:50 | P.PN ---
Progress Note - Text Progress Note Date: 01/21/18 Patient presents to the follow-up visit to the pain clinic with a chief complaint of low back pain and radiating pain into her bilateral lower extremities. Patient recently underwent a bilateral L2-L3 transforaminal epidural injection, patient states she had 3 days of relief of her groin pain. I discussed with her again repeating the procedure using steroid to potentially get longer-term relief and the patient is agreeable to do so. I also discussed with her being evaluated Dr. Abraham. Pain is bilateral sharp, shooting, and stabbing in nature. Pain is 7/10 in severity. I reviewed patient's MRI with her discussed her diagnosis in detail. Patient has mild thecal effacement at the L2-L3 level secondary to broad-based protruding disc she has neural foraminal stenosis at the L2-3 which will likely correlate with her radiating groin pain. Patient is taking Neurontin 300 mg 3 times a day, tolerating it well. Patient agrees with this plan and would like to proceed with the procedure after discussing the risks and benefits. In addition to above, 13-point review of systems is also negative for chest pain , shortness of breath, changes in vision, changes in hearing, new onset weakness , abdominal pain, diarrhea, extreme fatigue, malaise, fever, skin changes, homicidal or suicidal ideation, or bowel or bladder incontinence. Vital Signs: Reviewed in EMR, and stable Gen: WDWN, AAOx3, NAD HEENT: NCAT, EOMI, hearing grossly normal Pulm: resp unlabored Abd: soft, NT, ND Neck: supple, trachea midline Lumbar Spine: tenderness to palpation ROM: Limited flexion extension, pain with flexion and extension Positive straight leg raise bilaterally at 30 with reproduction of symptoms at L2, 3, and 4 Positive facet loading on left greater than right Neuro: CN II-XII grossly intact, muscle strength upper extremities 4/5 bilaterally Imaging: MRI lumbar spine shows thecal sac effacement at L2-3 with bilateral neural foraminal stenosis multilevel facet arthropathy as well as multilevel bulging disks with minimal thecal sac effacement mild spinal stenosis identified from L2 to L4 Assessment: 1. Lumbar spinal stenosis 2. umbar facet arthropathy not responsive to medial branch block Plan: 1. Explanation: Opioid and psychological risk scores were reviewed. Diagnoses , prognoses, and multiple treatment options including but not limited to physical therapy, interventional therapies, adjuvant medical therapies, narcotic medication therapies, and surgery were discussed with the patient and all questions were answered to the patient's satisfaction. 2. Opioid agreement: no opioids prescribed 3. Counseling: The patient was counseled extensively on SMOKING CESSATION, BODY MASS INDEXOnEXERCISE. Specifically, the patient was instructed regarding the importance of smoking cessation, obesity, and exercise in the context of both chronic pain and overall health. 4. Procedures: transforaminal epidural steroid injection, bilateral L2-3 next available appointment 5. Consultations: Referral to Dr. Abraham 6. Investigations: Maps appropriate 7 Medications: Continue Neurontin to 300 mg 3 times a day with 3 refills 8. Disposition: transforaminal epidural steroid injection at the L2-3 level bilateral QRS measures: 1-Patient's medications are documented in the chart. 2-Tobacco use is negative 3-Patient has had a pneumococcal vaccine. 4-Advanced care planning discussed, patient unable to give. 5-Opioid contract NOT signed with the patient as we do not prescribe fo rher 6-Pain positive, follow-up visit or procedure scheduled 7-Patient's blood pressure measured and documented, within normal limits 8-Patient's weight was measured, and body mass index ABOVE the normal limits, and counseling was done. Patient instructed to follow up with PCP. 9-Patient WAS NOT identified as an unhealthy alcohol user.
== END | disposition home or self-care (01) ==
LOC: PNWHC3 12:24
PROVIDERS: ATTEND Anesthesiology
DX: M48.061 Spinal stenosis, lumbar region without neurogenic claudication (principal); M99.73 Connective tissue and disc stenosis of intervertebral foramina of lumbar region; M51.26 Other intervertebral disc displacement, lumbar region; M46.86 Other specified inflammatory spondylopathies, lumbar region; Z79.891 Long term (current) use of opiate analgesic
CPT/HCPCS: 99211

== ENCOUNTER 2018-02-09 06:20 | Day surgery (SDC) | payer OTHER ==
[2018-02-08 08:51] VITALS: BMI 26.6
[2018-02-09 06:38] VITALS: RESP 18; TEMP 98.1
--- NOTE | 2018-02-09 06:48 | P.PCN ---
Date of Procedure: 02/09/18 Description of Procedure: PREOPERATIVE DIAGNOSIS: Lumbar radiculopathy POSTOPERATIVE DIAGNOSIS: Lumbar radiculopathy PROCEDURE: 1. Transforaminal epidural steroid injection under fluoroscopic guidance at bilateral L2-L3 level. 2. Lumbar epidurogram. ANESTHESIA: Local with 1% lidocaine; IV sedation with Versed and fentanyl. EBL: Minimal PROCEDURE INDICATION: The patient with low back pain and radiculopathy symptoms unresponsive to conservative treatment. Patient has pain only on both sides and gained weight from steroids, and thus will proceed with bilateral L2-L3 transforaminal epidural steroid injections today. No use of blood thinners. PROCEDURE DESCRIPTION / TECHNIQUE: The patient was seen and identified in the preoperative area. Risks, benefits, complications, and alternatives were discussed with the patient (including but not limited to incomplete pain relief, bleeding, infection, nerve damage, and allergies to medications), the patient agreed to proceed with the procedure and signed the consent after all questions were answered. Patient was taken to the OR and time out was completed to verify proper patient, position, laterality of pain, and allergies. Pt was placed in the prone position and a pillow was placed under the abdomen to reduce lumbar lordosis. The lumbosacral area was prepped and draped in the usual sterile fashion. Vital signs were closely monitored during the procedure. Conscious sedation was used during the procedure to decrease patients anxiety. Using oblique fluoroscopy, the chin of the Chay dog at right L2 and left L2 levels were identified, and the skin and deeper tissues just below was localized with 1% lidocaine. Subsequently, a 22-gauge 3.5-inch spinal needle was advanced under a tunneled view fluoroscopic guidance just underneath the chin of the Chay dog at both levels. Under lateral fluoroscopy, the needle was then advanced to the posterior border of the L2-L3 interforaminal space on both sides . After negative aspiration of CSF and blood and with no paresthesias , 1 mL of Isovue-200 contrast dye was injected excellent epidurogram and outlining of the L2 nerve root on both sides. Subsequently, 2 mL of total 4 ml block solution containing 4 mL of PF bupivacaine 0.5% with NO STEROID was injected through each needle. At the end of the procedure, needles were removed intact, skin was cleansed, and bandages were applied. COMPLICATIONS: None COMMENTS: None. DISPOSITION / PLANS: The patient was placed in a supine position and transferred to the recovery area in a stable condition for observation. There was no evidence of lower extremity motor or sensory deficit after the procedure. Patient was discharged from the recovery room after meeting discharge criteria. Home discharge instructions were given to the patient by the staff. The patient was reexamined prior to discharge and there were no issues. The patient will schedule a follow up in clinic in 4-6 weeks to discuss efficacy.
[2018-02-09] MEDS ORDERED: LACTATED RINGERS 1,000 ML IV ONE (06:50)
[2018-02-09] MEDS ORDERED: LIDOCAINE 1% 20 ML VIAL (10MG/ML) FOR IV START INTRADERMA ONE (06:51)
[2018-02-09 06:56] LABS: Glucose,Whole Blood 93 mg/dL (75-99)
[2018-02-09 07:48] VITALS: BP 106/61; PULSE 74
[2018-02-09] MEDS ORDERED: IV FLUID CONTINUATION 1,000 ML IV ONE (07:48)
[2018-02-09] MEDS ORDERED: LACTATED RINGERS 1,000 ML IV SCH (08:00)
--- NOTE | 2018-02-09 08:35 | FL ---
EXAMINATION TYPE: FL guided pain mgmt statistic DATE OF EXAM: 02/09/2018 HISTORY: Flouroscopy time 9 seconds of fluoroscopy provided. IMPRESSION: 1. Fluoroscopy time.
== END 2018-02-09 07:53 | disposition home or self-care (01) ==
LOC: ORPAIN 06:20
PROVIDERS: ATTEND Anesthesiology
DX: M51.16 Intervertebral disc disorders with radiculopathy, lumbar region (principal); M48.061 Spinal stenosis, lumbar region without neurogenic claudication; M46.96 Unspecified inflammatory spondylopathy, lumbar region; Z79.899 Other long term (current) drug therapy; Z88.5 Allergy status to narcotic agent; Z91.09 Other allergy status, other than to drugs and biological substances
CPT/HCPCS: 64483; J2250; J1100; J3010; Q9966; 99152

== ENCOUNTER → 2018-03-16 | Outpatient (CLI) | payer OTHER ==
[2018-03-16 13:38] VITALS: BP 142/72; PULSE 86; RESP 18; TEMP 98.4
--- NOTE | 2018-03-16 13:49 | P.PN ---
Subjective Progress Note Date: 03/16/18 This is a 57-year-old female with history of chronic axial lower back pain. The pain also goes down to the groins anteriorly. The patient denies any pain in her legs or any tingling or numbness there. The patient had multiple injections before including Medial branch RFA and transforaminal epidural steroid injections however none of these injections have given her good pain relief. The patient is scheduled to see a neurosurgeon in a few weeks. She also is scheduled to have an MRI on the lumbar spine. Today, pt denies new-onset weakness, bowel/bladder incontinence, or any other signs or symptoms of cauda equina syndrome. There are no signs of acute intoxication, and no indications of medication diversion or overuse. In addition to above, 13-point review of systems is also negative for chest pain , shortness of breath, changes in vision, changes in hearing, new onset weakness , abdominal pain, diarrhea, extreme fatigue, malaise, fever, skin changes, homicidal or suicidal ideation, or bowel or bladder incontinence. Vital Signs: Reviewed in EMR Gen: AAOx3, NAD HEENT: PERRLA,hearing grossly normal Pulm: resp unlabored,CTA Heart:S1,S2, No Mur Neck: supple, trachea midline Neuro exam of the lower extremities: Normal muscle strength bilaterally and symmetrically and normal deep tendon reflexes. Straight leg raising test: Negative Facet loading test: Positive Tenderness in the paravertebral musculature: Is significant in the lumbar paravertebral area bilaterally Neuro: CN II-XII grossly intact, Imaging: Reviewed in EMR/chart Assessment: Lumbar spondylosis without myelopathy Plan: 1. Explanation: Opioid and psychological risk scores were reviewed. Diagnoses , prognoses, and multiple treatment options including but not limited to physical therapy, interventional therapies, adjuvant medical therapies, narcotic medication therapies, and surgery were discussed with the patient and all questions were answered to the patient's satisfaction. 2. Opioid agreement: We do not prescribe opioids for this patient 3. Counseling: The patient was counseled extensively on SMOKING CESSATION, BODY MASS INDEX, EXERCISE. Specifically, the patient was instructed regarding the importance of smoking cessation, obesity, and exercise in the context of both chronic pain and overall health. 4. Procedures: None at this point 5. Consultations: The patient is to see Dr. Simmons in a few weeks 6. Investigations: None 7. Medications: The patient is to continue using Neurontin 8. Disposition: Return to clinic in 8 weeks Objective - Vital Signs Vital signs: Vital Signs Temp 98.4 F 03/16/18 13:29 Pulse 86 03/16/18 13:29 Resp 18 03/16/18 13:29 BP 142/72 03/16/18 13:29 Pulse Ox Intake & Output 03/15/18 03/16/18 03/16/18 18:59 06:59 18:59 Weight 72.575 kg
== END | disposition home or self-care (01) ==
LOC: PNWHC3 13:24
PROVIDERS: ATTEND Anesthesiology
DX: G89.29 Other chronic pain (principal); M54.9 Dorsalgia, unspecified; M47.816 Spondylosis without myelopathy or radiculopathy, lumbar region; Z79.899 Other long term (current) drug therapy
CPT/HCPCS: 99211

== ENCOUNTER → 2018-03-25 | Outpatient (CLI) | payer OTHER ==
--- NOTE | 2018-03-30 12:42 | MM ---
Reason for exam: screening (asymptomatic). Last mammogram was performed 1 year and 1 month ago. History: Patient is postmenopausal. Physical Findings: A clinical breast exam by your physician is recommended on an annual basis and results should be correlated with mammographic findings. MG Screening Mammo w CAD Bilateral CC and MLO view(s) were taken. Prior study comparison: March 04, 2017, bilateral MG screening mammo w CAD. February 05, 2012, bilateral digital screening mammo w/CAD. The breast tissue is heterogeneously dense. This may lower the sensitivity of mammography. Finding: There are typically benign vascular calcifications in the left breast. There is no discrete abnormality. ASSESSMENT: Benign, BI-RAD 2 RECOMMENDATION: Routine screening mammogram of both breasts in 1 year.
== END | disposition home or self-care (01) ==
LOC: RADMAMWWP 11:38
PROVIDERS: ATTEND Family Medicine
DX: Z12.31 Encounter for screening mammogram for malignant neoplasm of breast (principal)
CPT/HCPCS: 77067

== ENCOUNTER → 2018-03-30 | Outpatient (CLI) | payer OTHER ==
--- NOTE | 2018-03-31 15:20 | MR ---
EXAMINATION TYPE: MR lumbar spine wo con DATE OF EXAM: 03/30/2018 COMPARISON: Prior lumbar MRI 09/10/2016 and abdomen 08/20/2016 HISTORY: LBP, radiates into buttocks x 5 years TECHNIQUE: Multiplanar, multisequence images of the lumbar spine were acquired. Exam is essentially stable within the lumbar spine. Animal Shelter Clerk film show some questionable scoliosis simil ar to prior exam. L1-L2: Normal disc appearance without desiccation. No herniation, protrusion or disc bulging. No ca nal stenosis is present. Foramina are patent bilaterally. L2-L3: Posterior broad-based disc bulge causes mild mass effect on the thecal sac. There is improveme nt in appearance compared to prior exam. No significant foraminal encroachment or central stenosis. T here is mild facet arthropathy. L3-L4: Broad-based posterior disc bulge causes mild anterior mass effect on the thecal sac and is ecc entric towards the left as on prior. Facet arthropathy with hypertrophy ligamentum flavum encroaches on the lateral recesses. No significant central stenosis. L4-L5: Posterior broad-based disc bulge causes mild anterior mass effect on the thecal sac. Circumfer ential extension causes some encroachment greater on the right which may be contributed by spinal cur vature. Facet arthropathy with hypertrophy ligamentum flavum encroaches on the lateral recesses. No s ignificant central stenosis. L5-S1: Broad-based posterior disc bulge shows some increased signal at the posterior aspect of the di sc compatible with annular tear, there is mild contact with the anterior thecal sac, no significant s domonique stenosis or foraminal encroachment. Facet arthropathy changes noted. Lumbar segments are intact. No paraspinal masses are identified. Conus medullaris has a normal appe arance. There is multilevel spondylosis with minimal endplate discogenic marrow signal change. Common bile duct dilation is noted incidentally. IMPRESSION: There is some improvement in the central disc herniation L2-3, degenerative disc disease is similar t o prior exam. Facet arthropathy and additional findings above. Dilated common bile duct could be due to postcholecystectomy change.
== END | disposition home or self-care (01) ==
LOC: RADMRIMAIN 14:27
PROVIDERS: ATTEND Family Medicine
DX: M51.06 Intervertebral disc disorders with myelopathy, lumbar region (principal); M46.96 Unspecified inflammatory spondylopathy, lumbar region; M47.16 Other spondylosis with myelopathy, lumbar region; M24.28 Disorder of ligament, vertebrae
CPT/HCPCS: 72148

== ENCOUNTER → 2018-05-11 | Outpatient (CLI) | payer OTHER ==
[2018-05-11 13:19] VITALS: PULSE 112; RESP 16
[2018-05-11 13:43] VITALS: BP 146/97
--- NOTE | 2018-05-11 13:57 | P.PAINPG ---
Subjective Progress Note Date: 05/11/18 This is a follow-up visit for this 57 years old female with a chronic history of severe low back pain with radiation to the lower extremity bilaterally, patient diagnosed with lumbar degenerative disc disease and lumbar spondylosis, lumbar facet arthropathy, we have done diagnostic medial branch block lumbar area underneath was negative for any improvement of her pain, for this reason we did not proceed with the radiofrequency ablation of the medial branch, the patient continued to have low back pain with radiation to the lower extremity and we have done a transforaminal epidural steroid injections at the L2-3 leveles x2 , she reported she had no benefit from it, she continued to have pain with radiation to the lower extremity patient currently on Neurontin 300 mg every 8 hours, she denies any side effects of the medication, she reported that she feels depressed, and frustrated because of her chronic pain issues. Objective - Vital Signs Vital signs: Vital Signs Temp Pulse 112 H 05/11/18 13:05 Resp 16 05/11/18 13:05 BP 146/97 05/11/18 13:05 Pulse Ox 97 05/11/18 13:05 Intake & Output 05/10/18 05/11/18 05/11/18 18:59 06:59 18:59 Weight 69.853 kg - Exam Physical Examinations : 1-Constitutiona : Cooperative , not in acute distress . 2-HEENT : nech ; supple , no Lymphadenopathy , normal thyroid size . eyes : no ptosis , no icterus, no photophobia . ENT : normal of hearing , normal oropharynx , no Thrush . 3- Respiratory : Chest clear to auscultations Bilaterally , no wheezing , no Rhonchi . 4- Cardiovascular : regular rate and rhythem , S1 , S2 , no S3 , no S4. 5- Gastrointestinal : abdomen soft no tenderness , bowel sounds , no organomegally . 6- Genitourinary : Defferred . 7- neurologic : Cranial nerve II to XII intact , no focal neurological deffecit . 8-psychatric : alert , oriented X 3 , appropriate affect , intact judgment and insight . 9-Lymphatic : no Lymphadenopathy . 10- musculoskeltal : Lumber spine moter stegnth lower extremities , thigh and legs 5/5 Right side , 5/5 Left side deep tendon reflexes : normal Knee Jerk , normal ankle Jerk positive lumber facet Loading Test Range of motion of the lumbar spine Flexion 60 degrees, extension 10 degrees strait leg raising test negative bilaterally Fabere test negative bilaterally. tenderness over the Sacroiliac joint on the R and L sides Assessment and Plan Plan: Assessment and plan= chronic low back pain with radiation to the lower extremity secondary to lumbar degenerative disc disease and lumbar spondylosis she had no benefit from diagnostic medial branch block. she had no benefit from transforaminal epidural steroid injection. Patient already had an appointment with Dr. Abraham (spine surgeon )for evaluation I will increase the Neurontin to 400 mg 3 times a day. He will follow up in the pain clinic in 1 months Time with Patient: Less than 30 PQRS Measure Charge Sheet Measure #130: Documentation of Current Meds in Medical Chart: Patient's medications documented in chart Measure #226: Tobacco Use: Screen & Cessation Intervention: Pt not a tobacco user Measure #111: Pneumonia Vaccination: Pneumococcal vaccine NOT administered or previously given Measure #47: Advance Care Plan: Advance care planning discussed & documented, pt chose/unable to give Measure #412: Opioid Treatment Agreement: No documentation of signed opioid treatment agreement Measure #408: Opioid Therapy Follow-up Evaluation: Patient had NO f/u eval minimum every 3 months during opioid therapy Measure #317: Preventitive Care & Scrn High Bld Press & F/U: Normal blood pressure, f/u not required Measure #128: Body Mass Index (BMI) Screening & Follow-up: BMI documented ABOVE normal parameters - f/u documented Measure #131: Pain Assessment & Follow-up: Pain positive & plan documented, Follow-up scheduled Measure #431: Unhealthy Alcohol Use Preventative Care & Scrn: Patient not identified as an unhealthy alcohol user PQRS Narrative: Smoking Status Former smoker Do You Want the Pneumonia No Vaccine AT THIS TIME? Blood Pressure 146/97 Pain Intensity [Bilateral Knee 9 ] Scale Used Numeric (1 - 10) Hx Alcohol Use (MH) No Home Medications: Ambulatory Orders Gabapentin [Neurontin] 300 mg PO Q8HR 11/19/17 Phentermine HCl 37.5 mg PO DAILY 03/16/18 Citalopram Hydrobromide [Citalopram HBr] 1 tab PO DAILY 05/11/18 Controlled Substance Measures - Controlled Substance Measures Is patient prescribed a controlled substance at discharge?: No When asked, does pt state using other controlled substances?: No If prescribed controlled substance>3 days was MAPS reviewed?: No If Rx opioid, was Start Talking consent form obtained?: No If opioid is for acute pain is fill amount 7 days or less?: No Was information provided regarding opioid addiction?: No
== END | disposition home or self-care (01) ==
LOC: PNWHC3 12:33
PROVIDERS: ATTEND Specialist
DX: G89.29 Other chronic pain (principal); M54.5 Low back pain; M51.36 Other intervertebral disc degeneration, lumbar region; M47.816 Spondylosis without myelopathy or radiculopathy, lumbar region; M46.86 Other specified inflammatory spondylopathies, lumbar region; F32.9 Major depressive disorder, single episode, unspecified; Z79.899 Other long term (current) drug therapy; Z87.891 Personal history of nicotine dependence
CPT/HCPCS: 99211

== ENCOUNTER → 2018-06-08 | Outpatient (CLI) | payer OTHER ==
[2018-06-08 14:27] VITALS: BP 121/80; PULSE 85; RESP 18
--- NOTE | 2018-06-08 15:01 | P.PAINPG ---
Subjective Progress Note Date: 06/08/18 This is a follow-up visit for this 57 years old female with a chronic history of severe low back pain with radiation to the lower extremity bilaterally, patient diagnosed with lumbar degenerative disc disease and lumbar spondylosis, lumbar facet arthropathy, we have done diagnostic medial branch block lumbar area underneath was negative for any improvement of her pain, for this reason we did not proceed with the radiofrequency ablation of the medial branch, the patient continued to have low back pain with radiation to the lower extremity and we have done a transforaminal epidural steroid injections at the L2-3 leveles x2 , she reported she had no benefit from it, she continued to have pain with radiation to the lower extremity patient currently on Neurontin 400 mg every 8 hours, she denies any side effects of the medication, she reported that she feels depressed, and frustrated because of her chronic pain issues. She was referred to Dr. Abraham ,(orthopedic spine surgeon ) and he recommended no surgical intervention, he recommended physical therapy, she'll already started physical therapy and she feels some improvement, she denies any weakness in the lower extremity, she denies any change in the bowel movement or urination, no fever or night sweats Physical Examinations : 1-Constitutiona : Cooperative , not in acute distress . 2-HEENT : nech ; supple , no Lymphadenopathy , normal thyroid size . eyes : no ptosis , no icterus, no photophobia . ENT : normal of hearing , normal oropharynx , no Thrush . 3- Respiratory : Chest clear to auscultations Bilaterally , no wheezing , no Rhonchi . 4- Cardiovascular : regular rate and rhythem , S1 , S2 , no S3 , no S4. 5- Gastrointestinal : abdomen soft no tenderness , bowel sounds , no organomegally . 6- Genitourinary : Defferred . 7- neurologic : Cranial nerve II to XII intact , no focal neurological deffecit . 8-psychatric : alert , oriented X 3 , appropriate affect , intact judgment and insight . 9-Lymphatic : no Lymphadenopathy . 10- musculoskeltal : Lumber spine moter stegnth lower extremities , thigh and legs 5/5 Right side , 5/5 Left side deep tendon reflexes : normal Knee Jerk , normal ankle Jerk positive lumber facet Loading Test Range of motion of the lumbar spine Flexion 60 degrees, extension 10 degrees strait leg raising test negative bilaterally Fabere test negative bilaterally. tenderness over the Sacroiliac joint on the R and L sides Assessment and Plan Plan: Assessment and plan= chronic low back pain with radiation to the lower extremity secondary to lumbar degenerative disc disease and lumbar spondylosis she had no benefit from diagnostic medial branch block. she had no benefit from transforaminal epidural steroid injection. Dr. Abraham (spine surgeon ) recommended no surgical interventions, recommended physical therapy, patient already started physical therapy and she feels significant improvement Recommending using Neurontin to 600 mg every 8 hours and patient will follow up with the pain clinic when necessary. Objective - Vital Signs Vital signs: Vital Signs Temp Pulse 85 06/08/18 14:19 Resp 18 06/08/18 14:19 BP 121/80 06/08/18 14:19 Pulse Ox 96 06/08/18 14:19 Intake & Output 06/07/18 06/08/18 06/08/18 18:59 06:59 18:59 Weight 68.039 kg PQRS Measure Charge Sheet Measure #130: Documentation of Current Meds in Medical Chart: Patient's medications documented in chart Measure #226: Tobacco Use: Screen & Cessation Intervention: Pt not a tobacco user Measure #111: Pneumonia Vaccination: Pneumococcal vaccine NOT administered or previously given Measure #47: Advance Care Plan: Advance care planning discussed & documented, pt chose/unable to give Measure #412: Opioid Treatment Agreement: No documentation of signed opioid treatment agreement Measure #408: Opioid Therapy Follow-up Evaluation: Patient had NO f/u eval minimum every 3 months during opioid therapy Measure #317: Preventitive Care & Scrn High Bld Press & F/U: Normal blood pressure, f/u not required Measure #128: Body Mass Index (BMI) Screening & Follow-up: BMI documented within normal parameters Measure #131: Pain Assessment & Follow-up: Pain positive & plan documented, Follow-up PRN Measure #431: Unhealthy Alcohol Use Preventative Care & Scrn: Patient not identified as an unhealthy alcohol user PQRS Narrative: Smoking Status Former smoker Do You Want the Pneumonia No Vaccine AT THIS TIME? Blood Pressure 121/80 Pain Intensity [Lower Back] 7 Hx Alcohol Use (MH) Yes: social Home Medications: Ambulatory Orders Gabapentin [Neurontin] 400 mg PO Q8HR 11/19/17 Phentermine HCl 37.5 mg PO DAILY 03/16/18 Citalopram Hydrobromide [Citalopram HBr] 1 tab PO DAILY 05/11/18 Controlled Substance Measures - Controlled Substance Measures Is patient prescribed a controlled substance at discharge?: No When asked, does pt state using other controlled substances?: No If prescribed controlled substance>3 days was MAPS reviewed?: No If Rx opioid, was Start Talking consent form obtained?: No If opioid is for acute pain is fill amount 7 days or less?: No Was information provided regarding opioid addiction?: No
== END | disposition home or self-care (01) ==
LOC: PNWHC3 13:39
PROVIDERS: ATTEND Specialist
DX: G89.29 Other chronic pain (principal); M54.5 Low back pain; M51.36 Other intervertebral disc degeneration, lumbar region; M47.816 Spondylosis without myelopathy or radiculopathy, lumbar region; M46.86 Other specified inflammatory spondylopathies, lumbar region; Z79.899 Other long term (current) drug therapy; Z87.891 Personal history of nicotine dependence
CPT/HCPCS: 99211

== ENCOUNTER → 2018-09-13 | Outpatient (CLI) | payer OTHER ==
[2018-09-13 13:47] VITALS: BP 129/89; PULSE 84; RESP 18
== END | disposition home or self-care (01) ==
LOC: PNWHC3 13:15
PROVIDERS: ATTEND Specialist
DX: G89.29 Other chronic pain (principal); M51.16 Intervertebral disc disorders with radiculopathy, lumbar region; M47.26 Other spondylosis with radiculopathy, lumbar region; Z87.891 Personal history of nicotine dependence; Z79.891 Long term (current) use of opiate analgesic
CPT/HCPCS: 99211

== ENCOUNTER 2019-03-06 21:06 | Emergency (ER) | payer OTHER ==
[2019-03-06] MEDS ORDERED: KETOROLAC 30 MG/ML 1 ML VIAL IM STA (21:46)
--- NOTE | 2019-03-06 22:42 | XR ---
EXAM: XR Right Shoulder Complete, 2 or More Views CLINICAL HISTORY: Pain TECHNIQUE: Two or more views of the right shoulder. COMPARISON: No relevant prior studies available. FINDINGS: Bones/joints: Unremarkable. No acute fracture. No dislocation. Soft tissues: Unremarkable. IMPRESSION: No evidence for fracture or malalignment of the right shoulder
--- NOTE | 2019-03-06 22:58 | XR ---
EXAM: XR Right Knee, 3 views CLINICAL HISTORY: : Pain TECHNIQUE: Three views of the right knee. COMPARISON: 07/02/16 FINDINGS: Bones/joints: Unremarkable. No acute fracture. No dislocation. Soft tissues: Unremarkable. Impression: There is no evidence for fracture or malalignment of the right knee. There is no evidence for joint effusion.
--- NOTE | 2019-03-06 23:11 | ED ---
General Adult HPI - General Chief complaint: Extremity Injury, Lower Stated complaint: Knee injury Time Seen by Provider: 03/06/19 21:21 Source: patient Mode of arrival: ambulatory Limitations: no limitations - History of Present Illness Initial comments: Patient is a 58-year-old female presenting to emergency Department with knee and shoulder pain. Patient reports walking in a cement block when she tripped and fell forward. Patient denies head trauma. Patient reports that she felt her right knee "pop" and is since developed pain. Patient reports pain with any palpitation along the anterior aspect of the right knee. Patient reports limited range of motion due to pain. Patient denies any numbness or tingling or radiation of the pain. Patient also reports right shoulder pain that is exacerbated with shoulder adduction. Patient has full range of motion in shoulder. Patient reports most initial pain is located near the insertion point of the pectoral muscles. Patient is not on blood thinners. Patient denies taking medication to alleviate his symptoms. - Related Data Home Medications Medication Instructions Recorded Confirmed Gabapentin [Neurontin] 400 mg PO Q8HR 11/19/17 09/13/18 Citalopram Hydrobromide [CeleXA] 40 mg PO DAILY 09/13/18 09/13/18 Allergies Allergy/AdvReac Type Severity Reaction Status Date / Time codeine Allergy Vomiting Verified 03/06/19 21:16 iron dextran complex Allergy Anaphylaxis Verified 03/06/19 21:16 [From Infed] Review of Systems ROS Statement: Those systems with pertinent positive or pertinent negative responses have been documented in the HPI. ROS Other: All systems not noted in ROS Statement are negative. Past Medical History Past Medical History: Musculoskeletal Disorder, Osteoarthritis (OA), Seizure Disorder Additional Past Medical History / Comment(s): DDD WITH LOWER BACK PAIN; SEIZURES CAUSED BY HYPOGLYCEMIA- LAST SEIZURE 2007, MITRAL VALVE PROLAPSE, HOLE IN RIGHT EAR DRUM - CAUSES BALANCE PROBLEMS., ANEMIA- STATES SHE DOES NOT MAKE IRON- HX OF INFUSIONS WITH DR CARR. History of Any Multi-Drug Resistant Organisms: None Reported Past Surgical History: Bariatric Surgery, Cholecystectomy, Orthopedic Surgery, Tubal Ligation Additional Past Surgical History / Comment(s): LT BUNIONECTOMY, GASTRIC BYPASS (1997). LT KNEE SCOPE. RT EAR SX. RT HAND SX. COLONOSCOPY AND EGD,PAIN PROCEDURE INJECTIONS Past Anesthesia/Blood Transfusion Reactions: No Reported Reaction, Motion Sickness Past Psychological History: No Psychological Hx Reported Smoking Status: Former smoker Past Alcohol Use History: Occasional Past Drug Use History: None Reported - Past Family History Brother(s) Family Medical History: Deep Vein Thrombosis (DVT) Mother Family Medical History: No Reported History General Exam Limitations: no limitations General appearance: alert, in no apparent distress Head exam: Present: atraumatic, normocephalic, normal inspection Eye exam: Present: normal appearance, PERRL, EOMI Pupils: Present: normal accommodation ENT exam: Present: normal exam, mucous membranes moist, normal external ear exam Neck exam: Present: normal inspection, full ROM Respiratory exam: Present: normal lung sounds bilaterally Cardiovascular Exam: Present: regular rate, normal rhythm, normal heart sounds Extremities exam: Present: tenderness (Tenderness of the right knee with palpation. Tenderness on the right shoulder near the insertion point of the pectoral muscles.), joint swelling (Swelling of the right knee), other (+2 dorsalis pedis and posterior tibialis bilaterally). Absent: normal inspection (Ecchymosis on the anterior aspect of the right knee, no erythema.), full ROM (Limited range of motion in right knee due to pain. Pain in right shoulder with adduction.), calf tenderness (Bilaterally negative Homans) Back exam: Present: normal inspection, full ROM Neurological exam: Present: alert, oriented X3 Psychiatric exam: Present: normal affect, normal mood Skin exam: Present: warm, intact, normal color Course Vital Signs 03/06/19 03/06/19 21:11 23:14 Temperature 98.7 F 98 F Pulse Rate 112 H 90 Respiratory 17 16 Rate Blood Pressure 147/87 130/69 O2 Sat by Pulse 98 100 Oximetry Medical Decision Making - Medical Decision Making Patient 58-year-old female presents emergency Department with right shoulder and knee pain. Patient is given Toradol for pain control. X-ray of shoulder is unremarkable. I suspect the patient to have developed injury to the pectoral muscles causing the pain. X-ray of the knee is negative for fractures, dislocations or joint effusions. At this point I suspect SOFT tissue injury to right knee. Sergio wrap was placed. Patient advised to apply ice compress keep leg elevated to minimize symptoms. Patient was to follow with orthopedics. Strict return parameters were thoroughly discussed with patient was understanding and agreeable. Case discussed with physician. Disposition Clinical Impression: Pain and swelling of right knee Disposition: HOME SELF-CARE Condition: Stable Instructions (If sedation given, give patient instructions): Knee Sprain (ED) Additional Instructions: Please follow up with orthopedics. Please return to emergency department if symptoms worsen. Keep leg elevated and apply ice compress to minimize swelling. Is patient prescribed a controlled substance at d/c from ED?: No Referrals: Lino Santamaria DO [Primary Care Provider] - 1-2 days Luther Quinteros DO [Doctor of Osteopathic Medicine] - 1-2 days Time of Disposition: 23:11
[2019-03-06 23:34] VITALS: BP 130/69; PULSE 90; RESP 16; TEMP 98
== END 2019-03-06 23:14 | disposition home or self-care (01) ==
LOC: EC 21:06
DX: M25.461 Effusion, right knee (principal); M25.561 Pain in right knee; M25.511 Pain in right shoulder; G40.909 Epilepsy, unspecified, not intractable, without status epilepticus; Z87.39 Personal history of other diseases of the musculoskeletal system and connective tissue; Z87.891 Personal history of nicotine dependence; Z79.899 Other long term (current) drug therapy; Z88.5 Allergy status to narcotic agent; Z88.8 Allergy status to other drugs, medicaments and biological substances; W01.0XXA Fall on same level from slipping, tripping and stumbling without subsequent striking against object, initial encounter; Y93.01 Activity, walking, marching and hiking
CPT/HCPCS: 73030; 73562; 99283; 96372; J1885

== ENCOUNTER → 2019-03-24 | Outpatient (CLI) | payer OTHER ==
--- NOTE | 2019-03-25 00:12 | MR ---
EXAMINATION TYPE: MR knee RT wo con DATE OF EXAM: 03/24/2019 COMPARISON: None HISTORY: Rt knee pain, S/P fall 3 wks ago TECHNIQUE: Multiplanar, multisequence imaging of the right knee is performed without IV contrast. FINDINGS: There is subcutaneous edema over the anterior aspect of the knee. There is mild increased signal in t he subchondral patella consistent with bone bruise. The anterior and posterior cruciate ligaments are intact. The collateral ligaments are intact. Joint spaces are fairly normal. There is very minimal degenerative signal change within the posterior horn of the medial meniscus and the anterior horn of the lateral meniscus without a complete tear. There is 4 mm focus of subchondral edema involving the anterior aspect of the medial femoral condyle. There is no evidence of a fracture. IMPRESSION: No evidence of ligamentous or meniscal tear. Subcutaneous edema over the anterior aspect of the knee. Mild edema in the patella and anterior aspect of the medial femoral condyle consistent with small bon e bruise.
== END | disposition home or self-care (01) ==
LOC: RADMRIMAIN 18:28
PROVIDERS: ATTEND Orthopaedic Surgery
DX: M79.89 Other specified soft tissue disorders (principal); M25.561 Pain in right knee

== ENCOUNTER → 2019-04-08 | Outpatient (CLI) | payer OTHER ==
--- NOTE | 2019-04-08 15:30 | US ---
EXAMINATION TYPE: US carotid duplex BILAT DATE OF EXAM: 04/08/2019 COMPARISON: NONE CLINICAL HISTORY: 58-year-old female R55 Syncope and collapse. TECHNIQUE: Carotid duplex ultrasound examination. Indirect Doppler criteria is utilized. FINDINGS: EXAM MEASUREMENTS: RIGHT: Peak Systolic Velocity (PSV) cm/sec ----- Right CCA: 114. 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 Minimal plaque. IMPRESSION: No hemodynamically significant stenosis appreciated in either internal carotid artery. Criteria for Assigning % of Stenosis / Diameter reduction (Estimation based on the indirect measurements of the internal carotid artery velocities (ICA PSV). 1. Normal (no stenosis)=ICA PSV < 125 cm/s: ratio < 2.0: ICA EDV<40 cm/s. 2. Less than 50% stenosis=ICA PSV < 125 cm/s: ratio < 2.0: ICA EDV<40 cm/s. 3. 50 to 69% stenosis=ICA PSV of 125 to 230 cm/s: ration 2.0 ? 4.0: ICA EDV 40-100 cm/s. 4. Greater than 70% stenosis to near occlusion= ICA PSV > 230 cm/s: ratio > 4.0: ICA EDV > 100 cm/s. 5. Near occlusion= ICA PSV velocities may be low or undetectable: variable ratio and ICA EDV. 6. Total occlusion=unable to detect flow.
== END | disposition home or self-care (01) ==
LOC: RADUSWWP 12:56
PROVIDERS: ATTEND Family Medicine
DX: R55 Syncope and collapse (principal)
CPT/HCPCS: 93880

== ENCOUNTER → 2019-04-28 | Outpatient (CLI) | payer OTHER ==
--- NOTE | 2019-04-29 11:45 | MM ---
Reason for exam: screening (asymptomatic). Last mammogram was performed 1 year and 1 month ago. History: Patient is postmenopausal. Physical Findings: A clinical breast exam by your physician is recommended on an annual basis and results should be correlated with mammographic findings. MG Screening Mammo w CAD Bilateral CC and MLO view(s) were taken. Prior study comparison: March 25, 2018, bilateral MG screening mammo w CAD. March 04, 2017, bilateral MG screening mammo w CAD. There are scattered fibroglandular densities. There is no discrete abnormality. No significant changes when compared with prior studies. ASSESSMENT: Negative, BI-RAD 1 RECOMMENDATION: Routine screening mammogram of both breasts in 1 year.
== END | disposition home or self-care (01) ==
LOC: RADMAMWWP 10:32
PROVIDERS: ATTEND Family Medicine
DX: Z12.31 Encounter for screening mammogram for malignant neoplasm of breast (principal)
CPT/HCPCS: 77067

== ENCOUNTER 2021-01-03 18:22 | Inpatient (IN) | payer OTHER ==
[2021-01-03] MEDS ORDERED: LORazepam 2 MG/ML INJ IV STA (18:48)
[2021-01-03 19:02] LABS: Basophils % (A) 1 %; Eosinophils # (A) 0.1 k/uL (0-0.7); Eosinophils % (A) 2 %; HCT 38.4 % (34.0-46.0); HGB 11.5 gm/dL (11.4-16.0); Hypochromasia Moderate; Lymphocytes # (A) 1.4 k/uL (1.0-4.8); Lymphocytes % (A) 22 %; MCH 30.3 pg (25.0-35.0); MCV 101.3 fL (80.0-100.0); Macrocytosis Slight; Mean Platelet Volume 6.7; Monocytes # (A) 0.3 k/uL (0-1.0); Monocytes % (A) 5 %; Neutrophils # (A) 4.5 k/uL (1.3-7.7); Neutrophils % (A) 68 %; Platelet Count 406 k/uL (150-450); RBC 3.79 m/uL (3.80-5.40); RDW 14.3 % (11.5-15.5); WBC 6.6 k/uL (3.8-10.6)
[2021-01-03 19:08] LABS: Albumin 2.6 g/dL (3.5-5.0); Calcium 8.3 mg/dL (8.4-10.2); Potassium 4.3 mmol/L (3.5-5.1); Total Bilirubin 0.3 mg/dL (0.2-1.3); Total Protein 5.2 g/dL (6.3-8.2)
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
[2021-01-03 19:16] LABS: Partial Thromboplastin Time 25.3 sec (22.0-30.0); Prothrombin Time 10.3 sec (9.0-12.0)
--- NOTE | 2021-01-03 19:22 | XR ---
EXAMINATION: XR chest 2V DATE AND TIME: 01/03/2021 7:13 PM CLINICAL INDICATION: PHH; Chest Pain TECHNIQUE: Departmental protocol COMPARISON: 08/20/2016 FINDINGS: The lungs are clear. The pleural spaces are negative. The cardiac silhouette is not enlarged. The remainder of the mediastinal silhouette is unremarkable. The skeletal structures and soft tissues are negative for acute findings. IMPRESSION: NO ACUTE PROCESS.
[2021-01-03 19:24] LABS: D-Dimer 0.73 mg/L FEU (<0.60)
[2021-01-03] MEDS ORDERED: ASPIRIN 81 MG PO STA (20:30)
[2021-01-03] MEDS ORDERED: HEPARIN SODIUM 1,000 UN/ML (10ML VL) IV ONE (20:37)
[2021-01-03] MEDS ORDERED: HEPARIN SODIUM 1,000 UN/ML (10ML VL) IV PRN (20:37)
--- NOTE | 2021-01-03 20:40 | CT ---
EXAMINATION TYPE: CT angio chest with contrast and with 3-D reconstruction renderings DATE OF EXAM: 01/03/2021 8:03 PM COMPARISON: Chest radiograph 01/03/2021 HISTORY: Chest pain, elevated d-dimer CT DLP: 200.8 mGycm Automated exposure control for dose reduction was used. CONTRAST: CTA scan of the thorax is performed with IV Contrast, patient injected with 100 mL of Isovu e 370, pulmonary embolism protocol. . FINDINGS: AIRWAYS: Unremarkable LUNGS: Clear and well expanded bilaterally MEDIASTINUM: There is satisfactory enhancement of the pulmonary artery and its branches. There is a f illing defect within the proximal right middle lobe medial segment pulmonary artery, consistent with near-occlusive segmental pulmonary embolism. The remainder of the pulmonary arterial tree is well-opa cified and without filling defects. The right heart chambers are unremarkable. The aorta is unremarka ble. Coronary calcifications are seen. No cardiomegaly or pericardial effusion. No adenopathy. OTHER: No additional significant abnormality is seen. Results discussed with the ordering physician, in order to ensure intact communications. IMPRESSION: 1. ACUTE PULMONARY EMBOLISM IN THE RIGHT MIDDLE LOBE MEDIAL SEGMENT PULMONARY ARTERY; NO EVIDENCE OF RIGHT HEART STRAIN. 2. INCIDENTAL: CORONARY CALCIFICATIONS.
[2021-01-03] MEDS ORDERED: NALOXONE 0.4 MG/ML 1 ML VIAL IV PRN (20:56)
[2021-01-03] MEDS: HEPARIN SOD,PORK IN 0.45% NACL 25,000 UNIT in 0.45% NACL 1 250ML.BAG IV SCH (21:06)
--- NOTE | 2021-01-03 23:38 | US ---
EXAMINATION TYPE: US venous doppler duplex LE BI DATE OF EXAM: 01/03/2021 11:29 PM COMPARISON: NONE CLINICAL HISTORY: LE edema, PE dx. Lower extremity edema x 1 week. PE DX. Patient on Heparin. SIDE PERFORMED: Bilateral TECHNIQUE: The lower extremity deep venous system is examined utilizing real time linear array sonog tobi with graded compression, doppler sonography and color-flow sonography. VESSELS IMAGED: Common Femoral Vein Deep Femoral Vein Greater Saphenous Vein * Femoral Vein Popliteal Vein Small Saphenous Vein * Proximal Calf Veins (* superficial vessels) Right Leg: No evidence of DVT in veins imaged at this time. Left Leg: Color flow is seen within all veins imaged. CFV and mid-distal popliteal vein appear to c ompress incompletely. Possible minimal chronic non-occlusive thrombus along wall of the vein in these segments. IMPRESSION: There is evidence for some minimal chronic deep vein thrombosis in the left popliteal ve in. No evidence of deep vein thrombosis in the right leg.
[2021-01-04 04:59] LABS: Basophils % (A) 1 %; Eosinophils # (A) 0.1 k/uL (0-0.7); Eosinophils % (A) 3 %; HCT 34.7 % (34.0-46.0); HGB 10.2 gm/dL (11.4-16.0); Hypochromasia Moderate; Lymphocytes # (A) 1.1 k/uL (1.0-4.8); Lymphocytes % (A) 25 %; MCH 30.3 pg (25.0-35.0); MCHC 29.4 g/dL (31.0-37.0); MCV 103.1 fL (80.0-100.0); Macrocytosis Slight; Mean Platelet Volume 6.8; Monocytes # (A) 0.2 k/uL (0-1.0); Monocytes % (A) 6 %; Neutrophils # (A) 2.7 k/uL (1.3-7.7); Neutrophils % (A) 63 %; Platelet Count 293 k/uL (150-450); RBC 3.36 m/uL (3.80-5.40); RDW 14.2 % (11.5-15.5); WBC 4.3 k/uL (3.8-10.6)
[2021-01-04] MEDS ORDERED: NON FORMULARY DRUG (Butalbital/Aspirin/Caffeine [Butalb-Aspirin-Caffeine 50-325-40 Mg] 1 E PO PRN (12:04)
--- NOTE | 2021-01-04 12:07 | P.CNPUL ---
History of Present Illness Consult date: 01/04/21 Reason for consult: pulmonary embolism History of present illness: 60-year-old female patient came into the emergency department because of chest pain, and this is mainly an anterior chest pain worse with deep breathing. No radiation. No cough or sputum production. No hemoptysis. No previous history of DVT or pulmonary embolism. The patient has been essentially inactive. No trauma. No recent surgery. No previous personal or family history of pulmonary embolism. Her workup in the emergency department and not being positive for PE. The patient had a Doppler of the lower extremity and the right was negative and the left showed some minimal DVT in the left popliteal vein. CT angiogram of the chest was also done and it showed some hearing defects in the right mid lobe pulmonary artery. No RV strain pattern. Lung bases showed some atelectasis. No other major abnormalities have been noted. The patient's d-dimer was low at 0.9. Troponins were 0.052 respectively. Echocardiogram is pending. Currently she is on IV heparin. She is on room air oxygen. She is hemodynamically stable. No history of any malignancy. She has previous history of obesity undergone gastric bypass surgery back in 1997 and the patient has lost significant amount of weight. Back then she is to weigh around 300 pounds. Her comorbid conditions included chronic back pain and the patient was supposed to have an MRI of her spine on outpatient basis and this obviously got canceled because of her current presentation. She has no significant shortness of breath. No fever. No chills. No cough or sputum production. No other significant events overnight. No bleeding complications. Note, the patient has a lot of social issues and she has significant from her mother's home. She feels down and depressed and she is asking to peaking to a counselor. The patient has not been infected or vaccinated to COVID 19. Review of Systems Constitutional: Reports as per HPI Eyes: denies as per HPI, denies blurred vision, denies bulging eye, denies decreased vision, denies diplopia, denies discharge, denies dry eye, denies irritation, denies itching, denies pain, denies photophobia, denies loss of peripheral vision, denies loss of vision, denies tunnel vision/blind spots Ears: deny: decreased hearing, ear discharge, earache, tinnitus Ears, nose, mouth and throat: Reports as per HPI Breasts: absent: as per HPI, change in shape, gynecomastia, masses, nipple discharge, pain, skin changes, swelling Cardiovascular: Reports chest pain Respiratory: Reports as per HPI Gastrointestinal: Reports as per HPI Genitourinary: Reports as per HPI Menstruation: Reports as per HPI Musculoskeletal: Reports low back pain Musculoskeletal: absent: ankle pain, ankle stiffness, ankle swelling, as per HPI, elbow pain, elbow stiffness, elbow swelling, foot pain, foot stiffness, foot swelling, hand pain, hand stiffness, hand swelling, hip pain, hip stiffness, hip swelling, knee pain, knee stiffness, knee swelling, shoulder pain, shoulder stiffness, shoulder swelling, wrist pain, wrist stiffness, wrist swelling Integumentary: Reports as per HPI Neurological: Reports as per HPI Psychiatric: Reports depression Endocrine: Reports as per HPI Hematologic/Lymphatic: Reports as per HPI Allergic/Immunologic: Reports as per HPI Past Medical History Past Medical History: Musculoskeletal Disorder, Osteoarthritis (OA), Seizure Disorder Additional Past Medical History / Comment(s): DDD WITH LOWER BACK PAIN; SEIZURES CAUSED BY HYPOGLYCEMIA- LAST SEIZURE 2007, MITRAL VALVE PROLAPSE, HOLE IN RIGHT EAR DRUM - CAUSES BALANCE PROBLEMS., ANEMIA- STATES SHE DOES NOT MAKE IRON- HX OF INFUSIONS WITH DR CARR. History of Any Multi-Drug Resistant Organisms: None Reported Past Surgical History: Bariatric Surgery, Cholecystectomy, Orthopedic Surgery, Tubal Ligation Additional Past Surgical History / Comment(s): LT BUNIONECTOMY, GASTRIC BYPASS (1997). LT KNEE SCOPE. RT EAR SX. RT HAND SX. COLONOSCOPY AND EGD,PAIN PROCEDURE INJECTIONS Past Anesthesia/Blood Transfusion Reactions: No Reported Reaction, Motion Sickness Past Psychological History: No Psychological Hx Reported Smoking Status: Current every day smoker - Past Family History Brother(s) Family Medical History: Deep Vein Thrombosis (DVT) Mother Family Medical History: No Reported History Medications and Allergies Home Medications Medication Instructions Recorded Confirmed Type Gabapentin [Neurontin] 300 mg PO BID 11/19/17 01/03/21 History Butalbital/Aspirin/Caffeine 1 tab PO Q12H PRN 08/13/20 01/03/21 History [Tqkmkp-Agojoyw-Qzdztdtr 50-325-40 mg] Cyclobenzaprine [Flexeril] 10 mg PO BID 08/13/20 01/03/21 History Meloxicam [Mobic] 7.5 mg PO DAILY 08/13/20 01/03/21 History Multivitamins, Thera [Multivitamin 1 tab PO DAILY 01/03/21 01/03/21 History (formulary)] Topiramate [Topamax] 50 mg PO BID 01/03/21 01/03/21 History Allergies Allergy/AdvReac Type Severity Reaction Status Date / Time iron dextran complex Allergy Anaphylaxis Verified 01/03/21 19:42 [From Infed] codeine AdvReac Vomiting Verified 01/03/21 19:42 Physical Exam Vitals: Vital Signs Temp Pulse Resp BP Pulse Ox 01/04/21 11:00 6 L 16 98 01/04/21 10:00 65 16 94/66 98 01/04/21 09:00 66 16 95/60 98 01/04/21 08:00 66 16 103/63 98 01/04/21 06:00 66 16 100/66 100 01/03/21 23:42 58 L 18 100/61 98 01/03/21 19:28 68 18 93/59 96 01/03/21 18:23 98.5 F 86 18 108/65 98 Intake and Output 01/03/21 01/04/21 01/04/21 22:59 06:59 14:59 Intake Total 86.495 Balance 86.495 Intake: Intake, IV Titration 86.495 Amount Heparin Sod,Pork in 0.45% 86.495 NaCl 25,000 unit In 0.45 % NaCl 1 250ml.bag @ 18 UNITS/KG/HR 11.431 mls/hr IV .[id number] [facility] Rx#: [id number] Other: Weight 63.503 kg The patient appeared well nourished and normally developed. Vital signs as documented. Head exam is unremarkable. No scleral icterus or corneal arcus noted. Neck is without jugular venous distension, thyromegaly, or carotid bruits. Carotid upstrokes are brisk bilaterally. Lungs are clear to auscultation and percussion. Cardiac exam reveals the PMI to be normally sized and situated. Rhythm is regular. First and second heart sounds normal. No murmurs, rubs or gallops. Abdominal exam reveals normal bowel sounds, no masses, no organomegaly and no aortic enlargement. Extremities are nonedematous and both femoral and pedal pulses are normal. The patient does have some varicose veins involving lower extremities bilaterally. Left lower extremity slightly swollen compared to the right.Examination of the skin revealed no evidence of significant rashes, suspicious appearing nevi or other concerning lesions.Neurologically, the pat ient is awake and alert and the patient does not have any focal neurological deficit. Cranial nerves are essentially intact. Results - Laboratory Findings CBC and BMP: 01/04/21 03:35 01/03/21 18:49 PT/INR, D-dimer PT 10.3 sec (9.0-12.0) 01/03/21 18:49 INR 1.0 (<1.2) 01/03/21 18:49 D-Dimer 0.73 mg/L FEU (<0.60) H 01/03/21 18:49 Abnormal lab findings: Abnormal Labs 01/03/21 01/03/21 01/03/21 18:49 18:49 18:49 RBC 3.79 L Hgb MCV 101.3 H MCHC 30.0 L APTT D-Dimer 0.73 H Chloride 113 H BUN 21 H Calcium 8.3 L Troponin I Total Protein 5.2 L Albumin 2.6 L 01/03/21 01/03/21 01/04/21 18:49 21:49 00:42 RBC Hgb MCV MCHC APTT D-Dimer Chloride BUN Calcium Troponin I 0.065 H* 0.059 H* 0.051 H* Total Protein Albumin 01/04/21 01/04/21 01/04/21 03:35 03:35 10:52 RBC 3.36 L Hgb 10.2 L MCV 103.1 H MCHC 29.4 L APTT >200.0 H* 154.9 H* D-Dimer Chloride BUN Calcium Troponin I Total Protein Albumin - Diagnostic Findings Chest x-ray: image reviewed CT scan - chest: image reviewed Assessment and Plan Plan: 1 pulmonary embolism, likely acute versus subacute, unprovoked, with a clot in left popliteal vein, likely chronic in addition to filling defects involving the right middle lobe pulmonary artery. Hemodynamically stable. No RV strain pattern. No issues with oxygenation. D-dimer is lower and the patient is currently on IV heparin. 2 chest pain secondary to above, there is also some minimal amount of troponin leak likely secondary to above. Echocardiogram is pending. 3 left lower extremity DVT, popliteal 4 remote history of seizures back in 2007 currently seizure-free 5 history of bariatric surgery with gastric bypass. The amount of weight loss 6 degenerative arthritis 7 history of iron the patient anemia treated by hematology oncology with IV iron on outpatient basis 8 degenerative arthritis 9 history of depression Plan Presentation is consistent with an unprovoked pulmonary embolism. The patient is on IV heparin. We'll switch her to a newer agents or anticoagulants probably Eliquis at a time of discharge. We'll obtain insurance authorization. Proceed with an echocardiogram. Cardiology evaluated troponin leak. May be useful to underwent cardiac stress test on outpatient basis. Current presentation is more consistent with pulmonary embolism and a troponin leak likely secondary to pulmonary embolism. Will need a registered nurse hh case manager to evaluate her social status. She has been evicted from her mother's house. She feels depressed. She may need to be helped with living arrangements once discharged from the hospital.
[2021-01-04] MEDS: GABAPENTIN 300 MG CAP PO SCH ×2 (13:19→20:00)
[2021-01-04] MEDS: TOPIRAMATE 25 MG TAB PO SCH ×2 (13:19→20:00)
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
[2021-01-04] MEDS: CYCLOBENZAPRINE 10 MG TAB PO SCH (20:00)
[2021-01-04] MEDS: HEPARIN SOD,PORK IN 0.45% NACL 25,000 UNIT in 0.45% NACL 1 250ML.BAG IV SCH (20:14)
[2021-01-05] MEDS: MULTIVITAMINS, THERA 1 EACH TAB PO SCH (09:38)
[2021-01-05] MEDS: TOPIRAMATE 25 MG TAB PO SCH ×2 (09:38→20:00)
[2021-01-05] MEDS: GABAPENTIN 300 MG CAP PO SCH ×2 (09:38→20:00)
[2021-01-05] MEDS: MELOXICAM 7.5 MG TAB PO SCH (09:38)
--- NOTE | 2021-01-05 10:35 | P.PN ---
Subjective Progress Note Date: 01/05/21 60-year-old female patient came into the emergency department because of chest pain, and this is mainly an anterior chest pain worse with deep breathing. No radiation. No cough or sputum production. No hemoptysis. No previous history of DVT or pulmonary embolism. The patient has been essentially inactive. No trauma. No recent surgery. No previous personal or family history of pulmonary embolism. Her workup in the emergency department and not being positive for PE. The patient had a Doppler of the lower extremity and the right was negative and the left showed some minimal DVT in the left popliteal vein. CT angiogram of the chest was also done and it showed some hearing defects in the right mid lobe pulmonary artery. No RV strain pattern. Lung bases showed some atelectasis. No other major abnormalities have been noted. The patient's d-dimer was low at 0.9. Troponins were 0.052 respectively. Echocardiogram is pending. Currently she is on IV heparin. She is on room air oxygen. She is hemodynamically stable. No history of any malignancy. She has previous history of obesity undergone gastric bypass surgery back in 1997 and the patient has lost significant amount of weight. Back then she is to weigh around 300 pounds. Her comorbid conditions included chronic back pain and the patient was supposed to have an MRI of her spine on outpatient basis and this obviously got canceled because of her current presentation. She has no significant shortness of breath. No fever. No chills. No cough or sputum production. No other significant events overnight. No bleeding complications. Note, the patient has a lot of social issues and she has significant from her mother's home. She feels down and depressed and she is asking to peaking to a counselor. The patient has not been infected or vaccinated to COVID 19. 01/05/2021, the patient is on IV heparin. No chest pain. Awaiting echocardiogram report. No bleeding complication. He remains on room air oxygen. No other significant events overnight. Hemodynamically stable at this point in time. No hemoptysis. No pleurisy. No other significant events overnight. She is resting comfortably in bed. Objective - Vital Signs Vital signs: Vital Signs Temp 98.1 F 01/05/21 09:13 Pulse 61 01/05/21 09:13 Resp 18 01/05/21 09:13 BP 86/53 01/05/21 09:13 Pulse Ox 97 01/05/21 09:13 Intake & Output 01/04/21 01/05/21 01/05/21 18:59 06:59 18:59 Intake Total 113.379 179.737 240 Balance 113.379 179.737 240 Weight 63.503 kg 68.7 kg Intake: IV 170 0.9 170 Intake, IV Titration 113.379 9.737 Amount Heparin Sod,Pork in 0.45% 113.379 9.737 NaCl 25,000 unit In 0.45 % NaCl 1 250ml.bag @ 18 UNITS/KG/HR 11.431 mls/hr IV .[id number] [facility] Rx#: [id number] Oral 240 Other: Voiding Method Toilet Toilet # Voids 1 - Exam The patient appeared well nourished and normally developed. Vital signs as documented. Head exam is unremarkable. No scleral icterus or corneal arcus noted. Neck is without jugular venous distension, thyromegaly, or carotid bruits. Carotid upstrokes are brisk bilaterally. Lungs are clear to auscultation and percussion. Cardiac exam reveals the PMI to be normally sized and situated. Rhythm is regular. First and second heart sounds normal. No murmurs, rubs or gallops. Abdominal exam reveals normal bowel sounds, no masses, no organomegaly and no aortic enlargement. Extremities are nonedematous and both femoral and pedal pulses are normal. The patient does have some varicose veins involving lower extremities bilaterally. Left lower extremity slightly swollen compared to the right.Examination of the skin revealed no evidence of significant rashes, suspicious appearing nevi or other concerning lesions.Neurologically, the patient is awake and alert and the patient does not have any focal neurological deficit. Cranial nerves are essentially intact. - Labs CBC & Chem 7: 01/04/21 03:35 01/03/21 18:49 Labs: Abnormal Lab Results - Last 24 Hours (Table) 01/04/21 01/04/21 01/05/21 Range/Units 10:52 17:50 01:33 APTT 154.9 H* 70.4 H 55.7 H (22.0-30.0) sec Assessment and Plan Plan: 1 pulmonary embolism, likely acute versus subacute, unprovoked, with a clot in left popliteal vein, likely chronic in addition to filling defects involving the right middle lobe pulmonary artery. Hemodynamically stable. No RV strain pattern. No issues with oxygenation. D-dimer is lower and the patient is currently on IV heparin. 2 chest pain secondary to above, there is also some minimal amount of troponin leak likely secondary to above. Echocardiogram is pending. 3 left lower extremity DVT, popliteal 4 remote history of seizures back in 2007 currently seizure-free 5 history of bariatric surgery with gastric bypass. The amount of weight loss 6 degenerative arthritis 7 history of iron the patient anemia treated by hematology oncology with IV iron on outpatient basis 8 degenerative arthritis 9 history of depression Plan Tenex asymptomatic. No chest pain. Room air oxygen. Stopped IV heparin and put the patient on Eliquis 10 mg by mouth twice a day for one week and following that 5 mg by mouth twice a day Anticipated anticoagulation for at least 6 months for the time being Awaiting results of the echocardiogram Monitor hemoglobin and watch for any signs of GI bleeding Increased mobility we'll continue to follow
[2021-01-05] MEDS: APIXABAN 5 MG TAB PO SCH ×2 (11:07→20:00)
[2021-01-05] MEDS: CYCLOBENZAPRINE 10 MG TAB PO SCH ×2 (11:07→20:00)
--- NOTE | 2021-01-05 15:40 | ECHOF ---
Referral Reason:pulmonary embolism MEASUREMENTS -------- HEIGHT: 165.1 cm WEIGHT: 63.5 kg BP: IVSd: 0.9 cm (0.6 - 1.1) LVIDd: 4.6 cm (3.9 - 5.3) LVPWd: 1.1 cm (0.6 - 1.1) EDV(Teich): 96 ml IVSs: 1.2 cm LVIDs: 3.0 cm LVPWs: 1.7 cm %IVS Thck: 31 % ESV(Teich): 35 ml EF(Teich): 64 % %FS: 35 % SV(Teich): 61 ml RVIDd: 3.7 cm (< 3.3) LALs A4C: 5.4 cm LAAs A4C: 17.1 cm LAESV A-L A4C: 47 ml LAESV MOD A4C: 45 ml LALs A2C: 5.2 cm LAAs A2C: 17.4 cm LAESV A-L A2C: 49 ml LAESV MOD A2C: 46 ml LAESV(A-L): 48 ml LAESV Index (A-L): 28.44 ml/m Ao Diam: 2.6 cm (2.0 - 3.7) AV Cusp: 1.7 cm (1.5 - 2.6) EPSS: 0.6 cm MV E Kristopher: 0.62 m/s MV DecT: 156 ms MV [place]: 4.0 m/s MV A Kristopher: 0.67 m/s MV E/A Ratio: 0.92 MV PHT: 45 ms TR Vmax: 2.72 m/s TR maxP.70 mmHg RAP: 5.00 mmHg RVSP: 34.70 mmHg MV EF SLOPE: 103.18 mm/s (70 - 150) MV EXCURSION: 18.83 mm (> 18.000) FINDINGS -------- Sinus rhythm. This was a technically good study. The left ventricular size is normal. Left ventricular wall thickness is normal. Overall left vent ricular systolic function is moderate-severely impaired with, an EF between 30 - 35 %. Possible Matthew otsubo. The right ventricle is normal in size. LA is midly dilated 29-33ml/m2. The right atrial size is normal. The aortic valve is trileaflet, and appears structurally normal. No aortic stenosis or regurgitation. Mild mitral regurgitation is present. Mild tricuspid regurgitation present. Right ventricular systolic pressure is normal at < 35 mmHg. There is no pulmonic regurgitation present. There is no pericardial effusion. CONCLUSIONS -------- 1. The left ventricular size is normal. 2. Left ventricular wall thickness is normal. 3. Overall left ventricular systolic function is moderate-severely impaired with, an EF between 30 - 35 %. 4. Possible Takotsubo. 5. The right ventricle is normal in size. 6. LA is midly dilated 29-33ml/m2. 7. The right atrial size is normal. 8. The aortic valve is trileaflet, and appears structurally normal. No aortic stenosis or regurgitati on. 9. Mild mitral regurgitation is present. 10. Mild tricuspid regurgitation present. 11. There is no pulmonic regurgitation present. 12. There is no pericardial effusion. TREE TRIMMER: Jenna Prieto RDCS
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
[2021-01-06] MEDS: APIXABAN 5 MG TAB PO SCH ×2 (08:42→21:05)
[2021-01-06] MEDS: MELOXICAM 7.5 MG TAB PO SCH (08:42)
[2021-01-06] MEDS: TOPIRAMATE 25 MG TAB PO SCH ×2 (08:43→21:05)
[2021-01-06] MEDS: GABAPENTIN 300 MG CAP PO SCH ×2 (08:43→21:05)
[2021-01-06] MEDS: MULTIVITAMINS, THERA 1 EACH TAB PO SCH (08:43)
[2021-01-06] MEDS: CYCLOBENZAPRINE 10 MG TAB PO SCH ×2 (08:43→21:05)
--- NOTE | 2021-01-06 09:28 | P.PN ---
Subjective Progress Note Date: 01/06/21 60-year-old female patient came into the emergency department because of chest pain, and this is mainly an anterior chest pain worse with deep breathing. No radiation. No cough or sputum production. No hemoptysis. No previous history of DVT or pulmonary embolism. The patient has been essentially inactive. No trauma. No recent surgery. No previous personal or family history of pulmonary embolism. Her workup in the emergency department and not being positive for PE. The patient had a Doppler of the lower extremity and the right was negative and the left showed some minimal DVT in the left popliteal vein. CT angiogram of the chest was also done and it showed some hearing defects in the right mid lobe pulmonary artery. No RV strain pattern. Lung bases showed some atelectasis. No other major abnormalities have been noted. The patient's d-dimer was low at 0.9. Troponins were 0.052 respectively. Echocardiogram is pending. Currently she is on IV heparin. She is on room air oxygen. She is hemodynamically stable. No history of any malignancy. She has previous history of obesity undergone gastric bypass surgery back in 1997 and the patient has lost significant amount of weight. Back then she is to weigh around 300 pounds. Her comorbid conditions included chronic back pain and the patient was supposed to have an MRI of her spine on outpatient basis and this obviously got canceled because of her current presentation. She has no significant shortness of breath. No fever. No chills. No cough or sputum production. No other significant events overnight. No bleeding complications. Note, the patient has a lot of social issues and she has significant from her mother's home. She feels down and depressed and she is asking to peaking to a counselor. The patient has not been infected or vaccinated to COVID 19. 01/05/2021, the patient is on IV heparin. No chest pain. Awaiting echocardiogram report. No bleeding complication. He remains on room air oxygen. No other significant events overnight. Hemodynamically stable at this point in time. No hemoptysis. No pleurisy. No other significant events overnight. She is resting comfortably in bed. 82,021, the patient is resting comfortably in bed and she is on room air oxygen. She was taken off the IV heparin and she was started on long-term and to coagulation with Eliquis. No bleeding complications.The echocardiogram showed an impaired ejection fraction of 30-35%. There is normal LV, LV thickness was normal, RV was normal, possibility of Takotsubo was being entertained as the LV systolic function was moderate to severely impaired. No valvular disruption. We'll discuss with cardiology. Possibly a cardiac stress test at a later stage he'll be also needed. Objective - Vital Signs Vital signs: Vital Signs Temp 98.1 F 01/06/21 08:39 Pulse 78 01/06/21 08:39 Resp 18 01/06/21 08:39 BP 97/52 01/06/21 08:39 Pulse Ox 95 01/06/21 08:39 Intake & Output 01/05/21 01/06/21 01/06/21 18:59 06:59 18:59 Intake Total 720 10 240 Balance 720 10 240 Weight 67.7 kg Intake: IV 10 0.9 10 Oral 720 240 Other: Voiding Method Toilet Toilet Toilet # Voids 2 1 # Bowel Movements 1 - Exam The patient appeared well nourished and normally developed. Vital signs as documented. Head exam is unremarkable. No scleral icterus or corneal arcus noted. Neck is without jugular venous distension, thyromegaly, or carotid bruits. Carotid upstrokes are brisk bilaterally. Lungs are clear to auscultation and percussion. Cardiac exam reveals the PMI to be normally sized and situated. Rhythm is regular. First and second heart sounds normal. No murmurs, rubs or gallops. Abdominal exam reveals normal bowel sounds, no masses, no organomegaly and no aortic enlargement. Extremities are nonedematous and both femoral and pedal pulses are normal. The patient does have some varicose veins involving lower extremities bilaterally. Left lower extremity slightly swollen compared to the right.Examination of the skin revealed no evidence of significant rashes, suspicious appearing nevi or other concerning lesions.Neurologically, the patien t is awake and alert and the patient does not have any focal neurological deficit. Cranial nerves are essentially intact. - Labs CBC & Chem 7: 01/04/21 03:35 01/03/21 18:49 Assessment and Plan Plan: 1 pulmonary embolism, likely acute versus subacute, unprovoked, with a clot in left popliteal vein, likely chronic in addition to filling defects involving the right middle lobe pulmonary artery. Hemodynamically stable. No RV strain pattern. No issues with oxygenation. D-dimer is lower and the patient is curre ntly on anticoagulation with Eliquis. 2 chest pain secondary to above, there is also some minimal amount of troponin leak likely secondary to above. 3 left lower extremity DVT, popliteal 4 remote history of seizures back in 2007 currently seizure-free 5 history of bariatric surgery with gastric bypass. The amount of weight loss 6 degenerative arthritis 7 history of iron the patient anemia treated by hematology oncology with IV iron on outpatient basis 8 degenerative arthritis 9 history of depression 10 CHF with an ejection fraction of 30-35%, possible broken heart syndrome. Plan No chest pain. Room air oxygen. 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
[2021-01-06] MEDS: ACETAMINOPHEN TAB 325 MG TAB PO PRN (18:45)
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
[2021-01-07] MEDS: TOPIRAMATE 25 MG TAB PO SCH ×2 (09:13→20:33)
[2021-01-07] MEDS: CYCLOBENZAPRINE 10 MG TAB PO SCH ×2 (09:13→20:33)
[2021-01-07] MEDS: MELOXICAM 7.5 MG TAB PO SCH (09:13)
[2021-01-07] MEDS: GABAPENTIN 300 MG CAP PO SCH ×2 (09:13→20:33)
[2021-01-07] MEDS: MULTIVITAMINS, THERA 1 EACH TAB PO SCH (09:14)
[2021-01-07] MEDS: APIXABAN 5 MG TAB PO SCH ×2 (09:14→20:33)
--- NOTE | 2021-01-07 09:31 | P.PN ---
Subjective Progress Note Date: 01/07/21 60-year-old female patient came into the emergency department because of chest pain, and this is mainly an anterior chest pain worse with deep breathing. No radiation. No cough or sputum production. No hemoptysis. No previous history of DVT or pulmonary embolism. The patient has been essentially inactive. No trauma. No recent surgery. No previous personal or family history of pulmonary embolism. Her workup in the emergency department and not being positive for PE. The patient had a Doppler of the lower extremity and the right was negative and the left showed some minimal DVT in the left popliteal vein. CT angiogram of the chest was also done and it showed some hearing defects in the right mid lobe pulmonary artery. No RV strain pattern. Lung bases showed some atelectasis. No other major abnormalities have been noted. The patient's d-dimer was low at 0.9. Troponins were 0.052 respectively. Echocardiogram is pending. Currently she is on IV heparin. She is on room air oxygen. She is hemodynamically stable. No history of any malignancy. She has previous history of obesity undergone gastric bypass surgery back in 1997 and the patient has lost significant amount of weight. Back then she is to weigh around 300 pounds. Her comorbid conditions included chronic back pain and the patient was supposed to have an MRI of her spine on outpatient basis and this obviously got canceled because of her current presentation. She has no significant shortness of breath. No fever. No chills. No cough or sputum production. No other significant events overnight. No bleeding complications. Note, the patient has a lot of social issues and she has significant from her mother's home. She feels down and depressed and she is asking to peaking to a counselor. The patient has not been infected or vaccinated to COVID 19. 01/05/2021, the patient is on IV heparin. No chest pain. Awaiting echocardiogram report. No bleeding complication. He remains on room air oxygen. No other significant events overnight. Hemodynamically stable at this point in time. No hemoptysis. No pleurisy. No other significant events overnight. She is resting comfortably in bed. 01/06/2021, the patient is resting comfortably in bed and she is on room air oxygen. She was taken off the IV heparin and she was started on long-term and to coagulation with Eliquis. No bleeding complications.The echocardiogram showed an impaired ejection fraction of 30-35%. There is normal LV, LV thick ness was normal, RV was normal, possibility of Takotsubo was being entertained as the LV systolic function was moderate to severely impaired. No valvular disruption. We'll discuss with cardiology. Possibly a cardiac stress test at a later stage he'll be also needed. 01/07/2021, the patient has no complaints. Resting comfortably in bed. Currently on anticoagulation. Echocardiogram was noted. Cardiology consultation has been also requested. Vitals are all stable and the patient is currently on room air oxygen. Objective - Vital Signs Vital signs: Vital Signs Temp 97.8 F 01/07/21 08:00 Pulse 77 01/07/21 08:00 Resp 16 01/07/21 08:00 BP 98/55 01/07/21 08:00 Pulse Ox 98 01/07/21 08:00 Intake & Output 01/06/21 01/07/21 01/07/21 18:59 06:59 18:59 Intake Total 840 240 Output Total 400 Balance 840 -160 Weight 67.3 kg Intake: Oral 840 240 Output: Urine 400 Other: Voiding Method Toilet # Voids 1 1 # Bowel Movements 0 - Exam The patient appeared well nourished and normally developed. Vital signs as documented. Head exam is unremarkable. No scleral icterus or corneal arcus noted. Neck is without jugular venous distension, thyromegaly, or carotid bruits. Carotid upstrokes are brisk bilaterally. Lungs are clear to auscultation and percussion. Cardiac exam reveals the PMI to be normally sized and situated. Rhythm is regular. First and second heart sounds normal. No murmurs, rubs or gallops. Abdominal exam reveals normal bowel sounds, no masses, no organomegaly and no aortic enlargement. Extremities are nonedematous and both femoral and pedal pulses are normal. The patient does have some varicose veins involving lower extremities bilaterally. Left lower extremity slightly swollen compared to the right.Examination of the skin revealed no evidence of significant rashes, suspicious appearing nevi or other concerning lesions.Neurologically, the patient is awake and alert and the patient does not have any focal neurological deficit. Cranial nerves are essentially intact. - Labs CBC & Chem 7: 01/04/21 03:35 01/03/21 18:49 Assessment and Plan Plan: 1 pulmonary embolism, likely acute versus subacute, unprovoked, with a clot in left popliteal vein, likely chronic in addition to filling defects involving the right middle lobe pulmonary artery. Hemodynamically stable. No RV strain pattern. No issues with oxygenation. D-dimer is lower and the patient is currently on anticoagulation with Eliquis. 2 chest pain secondary to above, there is also some minimal amount of troponin leak likely secondary to above. 3 left lower extremity DVT, popliteal 4 remote history of seizures back in 2007 currently seizure-free 5 history of bariatric surgery with gastric bypass. The amount of weight loss 6 degenerative arthritis 7 history of iron the patient anemia treated by hematology oncology with IV iron on outpatient basis 8 degenerative arthritis 9 history of depression 10 CHF with an ejection fraction of 30-35%, possible broken heart syndrome. Plan No chest pain. Room air oxygen. The patient is 6 is anticoagulated with Eliquis Eliquis 10 mg by mouth twice a day for one week and following that 5 mg by mouth twice a day Anticipated anticoagulation for at least 6 months for the time being echocardiogram ejection fraction of 30-35%, mask designer to follow, possible cardiac stress test later stage Monitor hemoglobin and watch for any signs of GI bleeding We'll need cardiology evaluation either during this current hospital stay were later on an outpatient basis Possible discharge today
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
[2021-01-08] MEDS: ACETAMINOPHEN TAB 325 MG TAB PO PRN (04:14)
[2021-01-08 08:09] VITALS: RESP 16; TEMP 98
[2021-01-08] MEDS: MELOXICAM 7.5 MG TAB PO SCH (08:12)
[2021-01-08] MEDS: APIXABAN 5 MG TAB PO SCH (08:12)
[2021-01-08] MEDS: CYCLOBENZAPRINE 10 MG TAB PO SCH (08:12)
[2021-01-08] MEDS: GABAPENTIN 300 MG CAP PO SCH (08:12)
[2021-01-08] MEDS: MULTIVITAMINS, THERA 1 EACH TAB PO SCH (08:12)
[2021-01-08] MEDS: TOPIRAMATE 25 MG TAB PO SCH (08:12)
[2021-01-08 12:11] VITALS: BP 113/72; PULSE 76
--- NOTE | 2021-01-08 15:59 | P.PN ---
Subjective Progress Note Date: 01/08/21 Principal diagnosis: Pulmonary embolism 60-year-old female patient came into the emergency department because of chest pain, and this is mainly an anterior chest pain worse with deep breathing. No radiation. No cough or sputum production. No hemoptysis. No previous history of DVT or pulmonary embolism. The patient has been essentially inactive. No trauma. No recent surgery. No previous personal or family history of pulmonary embolism. Her workup in the emergency department and not being positive for PE. The patient had a Doppler of the lower extremity and the right was negative and the left showed some minimal DVT in the left popliteal vein. CT angiogram of th e chest was also done and it showed some hearing defects in the right mid lobe pulmonary artery. No RV strain pattern. Lung bases showed some atelectasis. No other major abnormalities have been noted. The patient's d-dimer was low at 0.9. Troponins were 0.052 respectively. Echocardiogram is pending. Currently she is on IV heparin. She is on room air oxygen. She is hemodynamically stable. No history of any malignancy. She has previous history of obesity undergone gastric bypass surgery back in 1997 and the patient has lost significant amount of weight. Back then she is to weigh around 300 pounds. Her comorbid conditions included chronic back pain and the patient was supposed to have an MRI of her spine on outpatient basis and this obviously got canceled because of her current presentation. She has no significant shortness of breath. No fever. No chills. No cough or sputum production. No other significant events overnight. No bleeding complications. Note, the patient has a lot of social issues and she has significant from her mother's home. She feels down and depressed and she is asking to peaking to a counselor. The patient has not been infected or vaccinated to COVID 19. 01/05/2021, the patient is on IV heparin. No chest pain. Awaiting echocardiogram report. No bleeding complication. He remains on room air oxygen. No other significant events overnight. Hemodynamically stable at this point in time. No hemoptysis. No pleurisy. No other significant events overnight. She is resting comfortably in bed. 01/06/2021, the patient is resting comfortably in bed and she is on room air oxygen. She was taken off the IV heparin and she was started on long-term and to coagulation with Eliquis. No bleeding complications.The echocardiogram showed an impaired ejection fraction of 30-35%. There is normal LV, LV thickness was normal, RV was normal, possibility of Takotsubo was being entertained as the LV systolic function was moderate to severely impaired. No valvular disruption. We'll discuss with cardiology. Possibly a cardiac stress test at a later stage he'll be also needed. 01/07/2021, the patient has no complaints. Resting comfortably in bed. Currently on anticoagulation. Echocardiogram was noted. Cardiology consultation has been also requested. Vitals are all stable and the patient is currently on room air oxygen. On 01/08/2021 patient seen in follow-up on selective care unit, she sits up in the recliner, in no acute distress, currently on room air, pulse ox is 97%, vital is stable, blood pressure is stable, no fever or chills, no cough, no, but the chest pain or hemoptysis, patient has been transitioned to oral antico agulation in the form of Eliquis, purpura drip has been discontinued. Echocardiogram has been noted, vital signs have been stable, she has had no acute events overnight, she is anticipating discharge home today Objective - Vital Signs Vital signs: Vital Signs Temp 98.0 F 01/08/21 08:08 Pulse 76 01/08/21 12:10 Resp 16 01/08/21 12:10 BP 113/72 01/08/21 12:10 Pulse Ox 97 01/08/21 12:10 Intake & Output 01/07/21 01/08/21 01/08/21 18:59 06:59 18:59 Intake Total 600 480 Output Total 400 Balance 200 480 Weight 67 kg Intake: Oral 600 480 Output: Urine 400 Other: # Voids 2 1 1 - Exam GENERAL EXAM: Alert, very pleasant, 60-year-old white female, on room air with a pulse ox of 97%, comfortable in no apparent distress. HEAD: Normocephalic/atraumatic. EYES: Normal reaction of pupils, equal size. Conjunctiva pink, sclera white. NOSE: Clear with pink turbinates. THROAT: No erythema or exudates. NECK: No masses, no JVD, no thyroid enlargement, no adenopathy. CHEST: No chest wall deformity. Symmetrical expansion. LUNGS: Equal air entry with no crackles, wheeze, rhonchi or dullness. CVS: Regular rate and rhythm, normal S1 and S2, no gallops, no murmurs, no rubs ABDOMEN: Soft, nontender. No hepatosplenomegaly, normal bowel sounds, no guarding or rigidity. EXTREMITIES: No clubbing, no edema, no cyanosis, 2+ pulses and upper and lower extremities. MUSCULOSKELETAL: Muscle strength and tone normal. SPINE: No scoliosis or deformity SKIN: No rashes CENTRAL NERVOUS SYSTEM: Alert and oriented -3. No focal deficits, tone is normal in all 4 extremities. PSYCHIATRIC: Alert and oriented -3. Appropriate affect. Intact judgment and insight. - Labs CBC & Chem 7: 01/04/21 03:35 01/03/21 18:49 Assessment and Plan Plan: Assessment: 1 pulmonary embolism, likely acute versus subacute, unprovoked, with a clot in left popliteal vein, likely chronic in addition to filling defects involving the right middle lobe pulmonary artery. Hemodynamically stable. No RV strain pattern. No issues with oxygenation. D-dimer is lower and the patient is currently on anticoagulation with Eliquis. 2 chest pain secondary to above, there is also some minimal amount of troponin leak likely secondary to above. 3 left lower extremity DVT, popliteal 4 remote history of seizures back in 2007 currently seizure-free 5 history of bariatric surgery with gastric bypass. The amount of weight loss 6 degenerative arthritis 7 history of iron the patient anemia treated by hematology oncology with IV iron on outpatient basis 8 degenerative arthritis 9 history of depression 10 CHF with an ejection fraction of 30-35%, possible broken heart syndrome. Plan: Continue oral anticoagulation the form of Eliquis No worsening dyspnea or hypoxia Currently on room air and maintaining O2 saturations above 95% Blood pressure stable, vital signs have been stable No acute events overnight Stable for discharge home from pulmonary perspective Outpatient follow-up with Dr. Aguilar in the office in 2 weeks I performed a history & physical examination of the patient and discussed their management with my nurse practitioner, Barb Mcdermott. I reviewed the nurse practitioner's note and agree with the documented findings and plan of care. Lung sounds are positive for clear breath sounds. The findings and the impression was discussed with the patient. I attest to the documentation by the nurse practitioner. Time with Patient: Less than 30
--- NOTE | 2021-01-08 22:58 | P.DS ---
Providers Date of admission: 01/08/21 08:05 Expected date of discharge: 01/08/21 Attending physician: Lino Santamaria Consults: 01/04/21 11:07 Consult Physician Routine Consulting Provider: Mark Aguilar Consult Reason/Comments: subsegmental right sided pulmonary embolism without any evidence for heart Do you want consulting provider notified?: Yes Primary care physician: Lino Santamaria - Discharge Diagnosis(es) (1) Acute DVT (deep venous thrombosis) Status: Acute (2) Pulmonary embolism Status: Acute Hospital Course: Patient was admitted for acute chest pain and shortness of breath she was found to have an elevated d-dimer and a positive CT exam for pulmonary embolism. She was also found to have a an acute lower extremity DVT. She was cleared by specialist for discharge home. On eliquis Patient Condition at Discharge: Stable Plan - Discharge Summary Discharge Rx Participant: No New Discharge Prescriptions: New Apixaban [Eliquis Starter Pack (for VTE)] 0 mg PO DIRECTED 30 Days #1 pack Apixaban [Eliquis] 10 mg PO BID #60 tab Continue Gabapentin [Neurontin] 300 mg PO BID Meloxicam [Mobic] 7.5 mg PO DAILY Cyclobenzaprine [Flexeril] 10 mg PO BID Butalbital/Aspirin/Caffeine [Xczxvq-Itwrypp-Vpfzshjn 50-325-40 mg] 1 tab PO Q12H PRN PRN Reason: Migraine Headache Topiramate [Topamax] 50 mg PO BID Multivitamins, Thera [Multivitamin (formulary)] 1 tab PO DAILY Discharge Medication List Gabapentin [Neurontin] 300 mg PO BID 11/19/17 [History] Butalbital/Aspirin/Caffeine [Oijjvh-Czfbdkf-Loftqwqw 50-325-40 mg] 1 tab PO Q12H PRN 08/13/20 [History] Cyclobenzaprine [Flexeril] 10 mg PO BID 08/13/20 [History] Meloxicam [Mobic] 7.5 mg PO DAILY 08/13/20 [History] Multivitamins, Thera [Multivitamin (formulary)] 1 tab PO DAILY 01/03/21 [History] Topiramate [Topamax] 50 mg PO BID 01/03/21 [History] Apixaban [Eliquis Starter Pack (for VTE)] 0 mg PO DIRECTED 30 Days #1 pack 01/04/21 [Rx] Apixaban [Eliquis] 10 mg PO BID #60 tab 01/08/21 [Rx] Follow up Appointment(s)/Referral(s): Lino Santamaria DO [Primary Care Provider] - 01/15/21 1:20 pm aMrk Aguilar MD [STAFF PHYSICIAN] - 02/06/21 2:30 pm (Will follow up with Neema Corea NP) Patient Instructions/Handouts: Pulmonary Embolism (DC), Deep Vein Thrombosis (DC) Discharge/Stand Alone Forms: Community Resources, Outpatient Counseling Discharge Disposition: HOME SELF-CARE
== END 2021-01-08 15:43 | disposition home or self-care (01) | DRG 175 ==
LOC: EC 18:22 → 3SCARD 20:59 → OBSVTOIN 01-08 08:05
PROVIDERS: ADMIT Family Medicine; ATTEND Family Medicine
DX: I26.99 Other pulmonary embolism without acute cor pulmonale (principal); I50.21 Acute systolic (congestive) heart failure; I82.4Z2 Acute embolism and thrombosis of unspecified deep veins of left distal lower extremity; I51.81 Takotsubo syndrome; M54.5 Low back pain; F32.9 Major depressive disorder, single episode, unspecified; F41.9 Anxiety disorder, unspecified; M19.90 Unspecified osteoarthritis, unspecified site; R79.89 Other specified abnormal findings of blood chemistry; Z98.84 Bariatric surgery status; G89.29 Other chronic pain; F17.200 Nicotine dependence, unspecified, uncomplicated; G40.909 Epilepsy, unspecified, not intractable, without status epilepticus; Z79.1 Long term (current) use of non-steroidal anti-inflammatories (NSAID); Z79.01 Long term (current) use of anticoagulants; D50.9 Iron deficiency anemia, unspecified
CPT/HCPCS: 36415; 71046; 71275; 80053; 83735; 83880; 84484; 85025; 85379; 85610; 85730; 87635; 93005; 93306; 93970; 96374; 99291

== ENCOUNTER 2021-01-30 04:40 | Emergency (ER) | payer OTHER ==
[2021-01-30 04:49] VITALS: RESP 18
--- NOTE | 2021-01-30 05:06 | ED ---
Fall HPI - General Chief Complaint: Fall Stated Complaint: Fall Time Seen by Provider: 01/30/21 05:05 Source: patient, RN notes reviewed, old records reviewed Mode of arrival: ambulatory Limitations: altered mental status - History of Present Illness Initial Comments: This is a 60-year-old female who presents for evaluation of fall. Fall with possible loss of consciousness. She is on blood thinners. Patient states she's been walking into things recently at home was walking into qiu walking into doors walking and objects. Bruising all over her entire body. Patient's denying drugs or alcohol abuse. Patient states she is on a stool prior to going out to dinner with friends carla. The stool woke up just prior to coming to the ER she states she lost her own 68 hours of time. MD Complaint: fall -: hour(s) Fall From: from height (distance) When Fall Occurred: 4-6 hours [employer] Fall Witnessed: no Place Fall Occurred: home Loss of Consciousness: none Prolonged Down Time?: no Symptoms Prior to Fall: none Location: head, face Severity: moderate Severity scale (1-10): 3 Quality: burning Context: tripped/slipped Associated Symptoms: headache, neck pain, weakness, lightheaded, confusion - Related Data Home Medications Medication Instructions Recorded Confirmed Gabapentin [Neurontin] 300 mg PO BID 11/19/17 01/03/21 Butalbital/Aspirin/Caffeine 1 tab PO Q12H PRN 08/13/20 01/03/21 [Sptleb-Boilbyy-Tghapfto 50-325-40 mg] Cyclobenzaprine [Flexeril] 10 mg PO BID 08/13/20 01/03/21 Meloxicam [Mobic] 7.5 mg PO DAILY 08/13/20 01/03/21 Multivitamins, Thera [Multivitamin 1 tab PO DAILY 01/03/21 01/03/21 (formulary)] Topiramate [Topamax] 50 mg PO BID 01/03/21 01/03/21 Previous Rx's Medication Instructions Recorded Apixaban [Eliquis Starter Pack 0 mg PO DIRECTED 30 Days #1 pack 01/04/21 (for VTE)] Apixaban [Eliquis] 10 mg PO BID #60 tab 01/08/21 Allergies Allergy/AdvReac Type Severity Reaction Status Date / Time iron dextran complex Allergy Anaphylaxis Verified 01/30/21 04:49 [From Infed] codeine AdvReac Vomiting Verified 01/30/21 04:49 Review of Systems ROS Statement: Those systems with pertinent positive or pertinent negative responses have been documented in the HPI. ROS Other: All systems not noted in ROS Statement are negative. Past Medical History Past Medical History: Musculoskeletal Disorder, Osteoarthritis (OA), Seizure Disorder Additional Past Medical History / Comment(s): DDD WITH LOWER BACK PAIN; SEIZURES CAUSED BY HYPOGLYCEMIA- LAST SEIZURE 2007, MITRAL VALVE PROLAPSE, HOLE IN RIGHT EAR DRUM - CAUSES BALANCE PROBLEMS., ANEMIA- STATES SHE DOES NOT MAKE IRON- HX OF INFUSIONS WITH DR CARR. History of Any Multi-Drug Resistant Organisms: None Reported Past Surgical History: Bariatric Surgery, Cholecystectomy, Orthopedic Surgery, Tubal Ligation Additional Past Surgical History / Comment(s): LT BUNIONECTOMY, GASTRIC BYPASS (1997). LT KNEE SCOPE. RT EAR SX. RT HAND SX. COLONOSCOPY AND EGD,PAIN PROCEDURE INJECTIONS Past Anesthesia/Blood Transfusion Reactions: No Reported Reaction, Motion Sickness Past Psychological History: No Psychological Hx Reported, Anxiety, Depression, Panic Disorder, PTSD Smoking Status: Former smoker Past Alcohol Use History: Occasional Past Drug Use History: None Reported - Past Family History Brother(s) Family Medical History: Deep Vein Thrombosis (DVT) Mother Family Medical History: No Reported History General Exam General appearance: alert, in no apparent distress Head exam: Present: normocephalic, normal inspection. Absent: atraumatic (Patient does appear to have bruising around left eye and mouth) Eye exam: Present: normal appearance, PERRL, EOMI. Absent: scleral icterus, conjunctival injection, periorbital swelling ENT exam: Present: normal exam, mucous membranes moist Neck exam: Present: normal inspection. Absent: tenderness, meningismus, lymphadenopathy Respiratory exam: Present: normal lung sounds bilaterally. Absent: respiratory distress, wheezes, rales, rhonchi, stridor Cardiovascular Exam: Present: regular rate, normal rhythm, normal heart sounds. Absent: systolic murmur, diastolic murmur, rubs, gallop, clicks GI/Abdominal exam: Present: soft, normal bowel sounds. Absent: distended, tende rness, guarding, rebound, rigid Extremities exam: Present: normal inspection, full ROM, normal capillary refill. Absent: tenderness, pedal edema, joint swelling, calf tenderness Back exam: Present: normal inspection Neurological exam: Present: alert, oriented X3, CN II-XII intact Psychiatric exam: Present: normal affect, normal mood Skin exam: Present: warm, dry, intact, normal color. Absent: rash Course Vital Signs 01/30/21 01/30/21 04:43 07:23 Temperature 97.5 F L Pulse Rate 78 64 Respiratory 18 18 Rate Blood Pressure 135/85 119/76 O2 Sat by Pulse 100 100 Oximetry - Reevaluation(s) Reevaluation #1: 01/30/21 06:12 Medical records reviewed Medical Decision Making - Medical Decision Making 60 female DF status post fall. Unsure of loss of consciousness. No acute injury found here in the ER patient can be discharged home - Lab Data Result diagrams: 01/30/21 06:03 01/30/21 06:03 Lab Results 01/30/21 01/30/21 01/30/21 Range/Units 06:03 06:03 06:03 WBC 4.0 (3.8-10.6) k/uL RBC 4.09 (3.80-5.40) m/uL Hgb 12.3 (11.4-16.0) gm/dL Hct 40.4 (34.0-46.0) % MCV 98.8 (80.0-100.0) fL MCH 30.2 (25.0-35.0) pg MCHC 30.6 L (31.0-37.0) g/dL RDW 14.1 (11.5-15.5) % Plt Count 335 (150-450) k/uL MPV 6.5 Neutrophils % 70 % Lymphocytes % 18 % Monocytes % 4 % Eosinophils % 5 % Basophils % 1 % Neutrophils # 2.8 (1.3-7.7) k/uL Lymphocytes # 0.7 L (1.0-4.8) k/uL Monocytes # 0.2 (0-1.0) k/uL Eosinophils # 0.2 (0-0.7) k/uL Basophils # 0.0 (0-0.2) k/uL PT 10.4 (9.0-12.0) sec INR 1.0 (<1.2) APTT 25.2 (22.0-30.0) sec Sodium 139 (137-145) mmol/L Potassium 4.1 (3.5-5.1) mmol/L Chloride 111 H (98-107) mmol/L Carbon Dioxide 24 (22-30) mmol/L Anion Gap 4 mmol/L BUN 25 H (7-17) mg/dL Creatinine 0.96 (0.52-1.04) mg/dL Est GFR (CKD-EPI)AfAm 75 (>60 ml/min/1.73 sqM) Est GFR (CKD-EPI)NonAf 65 (>60 ml/min/1.73 sqM) Glucose 82 (74-99) mg/dL Calcium 8.0 L (8.4-10.2) mg/dL Total Bilirubin 0.5 (0.2-1.3) mg/dL AST 26 (14-36) U/L ALT 18 (4-34) U/L Alkaline Phosphatase 111 (38-126) U/L Ammonia (<30) umol/L Creatine Kinase 178 H (30-135) U/L Troponin I (0.000-0.034) ng/mL Total Protein 5.6 L (6.3-8.2) g/dL Albumin 3.0 L (3.5-5.0) g/dL Salicylates <1.0 mg/dL Acetaminophen <10.0 ug/mL Serum Alcohol <10 mg/dL 01/30/21 01/30/21 Range/Units 06:03 06:03 WBC (3.8-10.6) k/uL RBC (3.80-5.40) m/uL Hgb (11.4-16.0) gm/dL Hct (34.0-46.0) % MCV (80.0-100.0) fL MCH (25.0-35.0) pg MCHC (31.0-37.0) g/dL RDW (11.5-15.5) % Plt Count (150-450) k/uL MPV Neutrophils % % Lymphocytes % % Monocytes % % Eosinophils % % Basophils % % Neutrophils # (1.3-7.7) k/uL Lymphocytes # (1.0-4.8) k/uL Monocytes # (0-1.0) k/uL Eosinophils # (0-0.7) k/uL Basophils # (0-0.2) k/uL PT (9.0-12.0) sec INR (<1.2) APTT (22.0-30.0) sec Sodium (137-145) mmol/L Potassium (3.5-5.1) mmol/L Chloride (98-107) mmol/L Carbon Dioxide (22-30) mmol/L Anion Gap mmol/L BUN (7-17) mg/dL Creatinine (0.52-1.04) mg/dL Est GFR (CKD-EPI)AfAm (>60 ml/min/1.73 sqM) Est GFR (CKD-EPI)NonAf (>60 ml/min/1.73 sqM) Glucose (74-99) mg/dL Calcium (8.4-10.2) mg/dL Total Bilirubin (0.2-1.3) mg/dL AST (14-36) U/L ALT (4-34) U/L Alkaline Phosphatase (38-126) U/L Ammonia <9 (<30) umol/L Creatine Kinase (30-135) U/L Troponin I <0.012 (0.000-0.034) ng/mL Total Protein (6.3-8.2) g/dL Albumin (3.5-5.0) g/dL Salicylates mg/dL Acetaminophen ug/mL Serum Alcohol mg/dL - Radiology Data Radiology results: report reviewed (CT brain C-spine and facial bones and chest x-ray negative for traumatic injury), image reviewed Disposition Clinical Impression: Fall Disposition: HOME SELF-CARE Condition: Good Instructions (If sedation given, give patient instructions): Fall Prevention for Older Adults (ED) Is patient prescribed a controlled substance at d/c from ED?: No Referrals: Lino Santamaria DO [Primary Care Provider] - 1-2 days
[2021-01-30] MEDS ORDERED: SODIUM CHLORIDE 0.9% 1,000 ML IV ONE (05:14)
[2021-01-30 06:15] LABS: Basophils % (A) 1 %; Eosinophils # (A) 0.2 k/uL (0-0.7); Eosinophils % (A) 5 %; HCT 40.4 % (34.0-46.0); HGB 12.3 gm/dL (11.4-16.0); Lymphocytes # (A) 0.7 k/uL (1.0-4.8); Lymphocytes % (A) 18 %; MCH 30.2 pg (25.0-35.0); MCHC 30.6 g/dL (31.0-37.0); MCV 98.8 fL (80.0-100.0); Mean Platelet Volume 6.5; Monocytes # (A) 0.2 k/uL (0-1.0); Monocytes % (A) 4 %; Neutrophils # (A) 2.8 k/uL (1.3-7.7); Neutrophils % (A) 70 %; Platelet Count 335 k/uL (150-450); RBC 4.09 m/uL (3.80-5.40); RDW 14.1 % (11.5-15.5)
[2021-01-30 06:30] LABS: ALT 18 U/L (4-34); AST 26 U/L (14-36); Acetaminophen <10.0 ug/mL; African American GFR (CKD) 75 (>60 ml/min/1.73 sqM); Alcohol <10 mg/dL; Alkaline Phosphatase 111 U/L (38-126); Anion Gap 4 mmol/L; Blood Urea Nitrogen 25 mg/dL (7-17); Carbon Dioxide 24 mmol/L (22-30); Chloride 111 mmol/L (98-107); Creatine Kinase 178 U/L (30-135); Glucose 82 mg/dL (74-99); Non-African American GFR(CKD) 65 (>60 ml/min/1.73 sqM); Potassium 4.1 mmol/L (3.5-5.1); Salicylate <1.0 mg/dL; Sodium 139 mmol/L (137-145); Total Bilirubin 0.5 mg/dL (0.2-1.3); Total Protein 5.6 g/dL (6.3-8.2)
[2021-01-30 06:38] LABS: Partial Thromboplastin Time 25.2 sec (22.0-30.0); Prothrombin Time 10.4 sec (9.0-12.0)
--- NOTE | 2021-01-30 06:43 | XR ---
EXAMINATION TYPE: XR chest 1V DATE OF EXAM: 01/30/2021 COMPARISON: 01/03/2021 HISTORY: Weakness TECHNIQUE: FINDINGS: There is no heart failure nor confluent pneumonic infiltrate. Costophrenic angles are clear . There are no hilar masses. Bony thorax is intact. IMPRESSION: No active cardiopulmonary disease. Normal heart. No change.
--- NOTE | 2021-01-30 07:08 | CT ---
EXAMINATION TYPE: CT brain cspine wo con DATE OF EXAM: 01/30/2021 COMPARISON: None HISTORY: Fall CT DLP: 974.6 mGycm Automated exposure control for dose reduction was used. Ventricles and sulci appear normal. There is no mass effect nor midline shift. There is no sign of in tracranial hemorrhage. Calvarium is intact. There is no evidence of cerebral edema. Skull base is int act. Cervical vertebra have normal alignment. Disc spaces are fairly normal. Posterior elements are intact . Facet joints are intact. Prevertebral soft tissues appear normal. There is mild sclerosis in the ri ght mastoid sinuses. IMPRESSION: Negative CT scan of the cervical spine. No fracture. Negative CT scan of the brain. Mild right side mastoiditis noted.
--- NOTE | 2021-01-30 07:11 | CT ---
EXAMINATION TYPE: CT facial bones wo con DATE OF EXAM: 01/30/2021 COMPARISON: HISTORY: Fall CT DLP: Included in brain DLP mGycm Automated exposure control for dose reduction was used. CT scan of the facial bones. History fall. Pain. Comparison none. TECHNIQUE: Images obtained from the bottom of the mandible to the top of the frontal sinuses without contrast. FINDINGS: The mandibular ring is intact. Mandibular condyles appear normal. Temporomandibular joints appear nor mal. Zygomatic arches appear normal. The nasal bone is intact. Maxilla is intact. There is absence of the middle and superior nasal turbinates. The orbital margins are intact. There is no evidence of a blowout fracture. There is no retro-orbital mass. There is some sclerosis in the right mastoid sinus. There is normal aeration of the epitympanic reces s bilaterally. External auditory canals are intact. IMPRESSION: No fracture seen. Previous sinus surgery. Right-sided mastoiditis.
[2021-01-30 07:24] VITALS: BP 119/76; PULSE 64; TEMP 97.5
== END 2021-01-30 07:53 | disposition home or self-care (01) ==
LOC: EC 04:40
DX: S00.83XA Contusion of other part of head, initial encounter (principal); M54.2 Cervicalgia; R53.1 Weakness; R42 Dizziness and giddiness; G40.909 Epilepsy, unspecified, not intractable, without status epilepticus; M19.90 Unspecified osteoarthritis, unspecified site; Z88.5 Allergy status to narcotic agent; Z87.891 Personal history of nicotine dependence; Z88.8 Allergy status to other drugs, medicaments and biological substances; Z79.82 Long term (current) use of aspirin; Z79.1 Long term (current) use of non-steroidal anti-inflammatories (NSAID); Z79.899 Other long term (current) drug therapy; W17.89XA Other fall from one level to another, initial encounter; Y92.009 Unspecified place in unspecified non-institutional (private) residence as the place of occurrence of the external cause
CPT/HCPCS: 80053; 82140; 82550; 84484; 85025; 85610; 85730; 80143; 80179; 71045; 72125; 70486; 70450; 99285; 96360; G0480; 80320

== ENCOUNTER → 2021-03-18 | Outpatient (CLI) | payer OTHER ==
[2021-03-18 19:17] LABS: African American GFR (CKD) 63.6 (60.0-200.0); Albumin 3.5 g/dL (3.80-4.90); Albumin/Globulin Ratio 1.35 (1.60-3.17); Anion Gap 6.6 mmol/L (4.00-12.00); BUN/Creat Ratio 13.64 Ratio (12.00-20.00); Calcium 7.5 mg/dL (8.7-10.3); Carbon Dioxide 22.4 mmol/L (21.6-31.8); Globulin 2.6 g/dL (1.6-3.3); Non-African American GFR(CKD) 54.9 (60.0-200.0); Potassium 3.8 mmol/L (3.5-5.5); Total Bilirubin 0.3 mg/dL (0.2-1.2); Total Protein 6.1 g/dL (6.2-8.2)
[2021-03-18 19:56] LABS: T4, Free (Free Thyroxine) 0.4 ng/dL (0.80-1.80)
== END | disposition home or self-care (01) ==
LOC: LABWHC1 14:04
PROVIDERS: ATTEND Ophthalmology
DX: E07.9 Disorder of thyroid, unspecified (principal)
CPT/HCPCS: 36415; 80053; 83519; 84439; 84443

== ENCOUNTER → 2022-08-22 | Outpatient (CLI) | payer OTHER ==
--- NOTE | 2022-08-25 08:58 | MM ---
Reason for Exam: Screening (asymptomatic). Last mammogram was performed 3 year(s) and 4 month(s) ago. Patient History: Menarche at age 16. First Full-Term at age 19. Postmenopausal. Risk Values: Zoe 5 year model risk: 1.0%. NCI Lifetime model risk: 4.7%. Prior Study Comparison: 03/04/2017 Bilateral Screening Mammogram, [facility]. 03/25/2018 Bilateral Screening Mammogram, [facility]. 04/28/2019 Bilateral Screening Mammogram, [facility]. Tissue Density: There are scattered fibroglandular densities. Findings: Analyzed By CAD. Benign vascular calcification is present bilaterally. No suspicious groups of microcalcifications, spiculated or lobular masses, architectural distortion or other secondary signs of malignancy are mammographically apparent.Benign vascular calcification is present bilaterally. There is a focal asymmetry within the mid middle 12:00 position left breast. Compression views are recommended for additional workup. No suspicious groups of microcalcifications, spiculated or lobular masses, architectural distortion or other secondary signs of malignancy are mammographically apparent. Overall Assessment: Incomplete: need additional imaging evaluation, BI-RAD 0 Management: Diagnostic Mammogram of the left breast. A negative mammogram report should not preclude additional follow up of suspicious palpable abnormalities. Patient should continue monthly self breast exam. A clinical breast exam by your physician is recommended on an annual basis and results should be correlated with mammographic findings. Electronically signed and approved by: dAarsh Gao D.O. Radiologis
== END | disposition home or self-care (01) ==
LOC: RADMAMWWP 12:53
PROVIDERS: ATTEND Family Medicine
DX: Z12.31 Encounter for screening mammogram for malignant neoplasm of breast (principal); Z78.0 Asymptomatic menopausal state
CPT/HCPCS: 77067

== ENCOUNTER → 2022-08-29 | Outpatient (CLI) | payer OTHER ==
--- NOTE | 2022-08-29 13:04 | MM ---
Reason for Exam: Additional evaluation requested from abnormal screening. Last screening mammogram was performed less than 1 month ago. Patient History: Menarche at age 16. First Full-Term at age 19. Postmenopausal. Risk Values: Zoe 5 year model risk: 1.0%. NCI Lifetime model risk: 4.7%. Prior Study Comparison: 03/25/2018 Bilateral Screening Mammogram, [facility]. 04/28/2019 Bilateral Screening Mammogram, [facility]. 08/22/2022 Bilateral MG screening mammo w CAD, [facility]. Tissue Density: Left: There are scattered fibroglandular densities. Findings: Analyzed By CAD. Focal asymmetry within the mid and middle o'clock position left breast does not persist with compression. No new suspicious masses or calcifications identified. Overall Assessment: Negative, BI-RAD 1 Management: Screening Mammogram of both breasts in 1 year. A clinical breast exam by your physician is recommended on an annual basis and results should be correlated with mammographic findings. This exam should not preclude additional follow-up of suspicious palpable abnormalities. Results were given to the patient verbally at the time of exam. Electronically signed and approved by: Nito Garcia D.O.
== END | disposition home or self-care (01) ==
LOC: RADMAMWWP 12:37
PROVIDERS: ATTEND Family Medicine
DX: R92.8 Other abnormal and inconclusive findings on diagnostic imaging of breast (principal); Z78.0 Asymptomatic menopausal state
CPT/HCPCS: 77065

== ENCOUNTER → 2023-04-29 | Outpatient (CLI) | payer OTHER ==
--- NOTE | 2023-04-29 19:59 | XR ---
EXAMINATION TYPE: XR thoracic spine 2V DATE OF EXAM: 04/29/2023 3:42 PM CLINICAL INDICATION:Female, 62 years old with history of M54.10; [facility] COMPARISON: 01/03/2021 TECHNIQUE: 2 views of the thoracic spine in Frontal and lateral projections. FINDINGS: There is no evidence of disk space narrowing. Increased kyphotic alignment. There is wedging of the midthoracic vertebrae's at multiple levels. Right upper quadrant cholecystectomy clips. IMPRESSION: Multiple anterior wedging of midthoracic vertebrae's. These appear progressed from 01/03/2021. Conside r further evaluation with cross-sectional imaging such as MRI for acute fracture.
--- NOTE | 2023-04-29 20:00 | XR ---
EXAMINATION TYPE: XR lumbar spine 2 or 3V DATE OF EXAM: 04/29/2023 3:42 PM CLINICAL INDICATION:Female, 62 years old with history of M54.10; [facility] COMPARISON: None TECHNIQUE: Frontal, lateral and coned in L5-S1 lateral views of the spine. FINDINGS: L1 vertebral body wedging anteriorly. Right upper quadrant cluster 20) multilevel degenerat ion changes with osteophyte formation and disc space narrowing. Multilevel facet joint arthropathy. IMPRESSION: 1. Wedging of the L1 vertebrae can be further assessed with MRI of the lumbar spine for compression f racture. 2. Moderate multilevel disc degeneration.
== END | disposition home or self-care (01) ==
LOC: RADXRMAIN 15:21
PROVIDERS: ATTEND Nurse Practitioner Family
DX: M48.54XA Collapsed vertebra, not elsewhere classified, thoracic region, initial encounter for fracture (principal); M48.56XA Collapsed vertebra, not elsewhere classified, lumbar region, initial encounter for fracture; M51.16 Intervertebral disc disorders with radiculopathy, lumbar region
CPT/HCPCS: 72070; 72100

== ENCOUNTER → 2023-09-11 | Outpatient (CLI) | payer OTHER ==
--- NOTE | 2023-09-14 09:00 | MM ---
Reason for Exam: Screening (asymptomatic). Last mammogram was performed 1 year(s) and 1 month(s) ago. Patient History: Menarche at age 16. First Full-Term at age 19. Postmenopausal. Risk Values: Zoe 5 year model risk: 1.0%. NCI Lifetime model risk: 4.6%. Prior Study Comparison: 04/28/2019 Bilateral Screening Mammogram, [facility]. 08/22/2022 Bilateral MG screening mammo w CAD, [facility]. 08/29/2022 Left MG work up mamm w CAD LT, [facility]. Tissue Density: The breast tissue is heterogeneously dense. This may lower the sensitivity of mammography. Findings: Analyzed By CAD. There is an asymmetric density in the central upper margin of the left breast. Benign calcifications. No dominant mass or suspicious calcifications. Overall Assessment: Incomplete: need additional imaging evaluation, BI-RAD 0 Management: Special View Mammogram of the left breast. . Patient should continue monthly self-breast exams. A clinical breast exam by your physician is recommended on an annual basis. This exam should not preclude additional follow-up of suspicious palpable abnormalities. Note on Zoe scores and lifetime risk: 1. A Zoe score greater than 3% is considered moderate risk. If this is the case, consider specialist referral to assess eligibility for a risk reducing agent. 2. If overall lifetime risk for the development of breast cancer is 20% or higher, the patient may qualify for future screening with alternating mammogram and breast MRI. Electronically signed and approved by: Donald Ma M.D. Radiologis
== END | disposition home or self-care (01) ==
LOC: RADMAMWWP 15:15
PROVIDERS: ATTEND Family Medicine
DX: Z12.31 Encounter for screening mammogram for malignant neoplasm of breast (principal); Z78.0 Asymptomatic menopausal state
CPT/HCPCS: 77067

== ENCOUNTER → 2023-10-05 | Outpatient (CLI) | payer OTHER | END | disposition home or self-care (01) | LOC: RADMAMWWP 14:14 | PROVIDERS: ATTEND Family Medicine | DX: Z53.9 Procedure and treatment not carried out, unspecified reason (principal) ==

== ENCOUNTER 2024-10-16 15:56 | Emergency (ER) | payer OTHER ==
[2024-10-16 16:10] VITALS: RESP 18; TEMP 98.6
--- NOTE | 2024-10-16 16:23 | XR ---
EXAMINATION TYPE: XR ankle limited LT DATE OF EXAM: 10/16/2024 4:19 PM COMPARISON: None. CLINICAL INDICATION: Female, 64 years old with history of pain, swelling; PHH, pain TECHNIQUE: XR ankle limited LT; ankle is imaged in frontal, lateral and oblique projections. FINDINGS: Osseous structures demineralized. No acute fracture or dislocation. Left ankle soft tissue swelling. No unexpected radiopaque foreign body. Enthesophyte formation along the plantar calcaneal surface. Or thopedic hardware noted in the first digit metatarsal. IMPRESSION: 1. No evidence of acute fracture. 2. Subcutaneous swelling around the ankle likely secondary to underlying soft tissue injury. [facility], , 10/16/2024 4:21 PM
--- NOTE | 2024-10-16 17:02 | ED ---
Extremity Problem HPI - General Chief complaint: Extremity Problem,Nontraumatic Stated complaint: L ankle pain Time Seen by Provider: 10/16/24 17:00 Source: patient, RN notes reviewed Mode of arrival: ambulatory Limitations: no limitations - History of Present Illness Initial comments: 63-year-old female presented to ER for evaluation of left ankle pain and swelling. Patient states she recently started to work out and is walking more frequently.She states over the past 4 days she has been having a can consistently worsening left ankle pain. She states last night ankle was warm, tender and patient was unable to place a blanket over her ankle due to the pain. She denies any known injuries or traumas. Patient does report a history of pulmonary embolism but is not currently on a blood thinner. Patient denies any recent travel or long car rides. Non-smoker. No chest pain, shortness of breath, dizziness, lightheadedness or palpitations. No paresthesias to the left lower extremity. No fevers or chills. - Related Data Home Medications Medication Instructions Recorded Confirmed Gabapentin [Neurontin] 300 mg PO BID 11/19/17 03/10/22 Butalbital/Aspirin/Caffeine 1 tab PO Q12H PRN 08/13/20 03/10/22 [Cugyje-Pmfveos-Wxktlolk 50-325-40 mg] Meloxicam [Mobic] 7.5 mg PO DAILY 08/13/20 03/10/22 Multivitamins, Thera [Multivitamin 1 tab PO DAILY 01/03/21 03/10/22 (formulary)] Topiramate [Topamax] 50 mg PO BID 01/03/21 03/10/22 Allergies Allergy/AdvReac Type Severity Reaction Status Date / Time iron dextran complex Allergy Anaphylaxis Verified 03/10/22 11:00 [From Infed] codeine AdvReac Vomiting Verified 03/10/22 11:00 Review of Systems ROS Statement: Those systems with pertinent positive or pertinent negative responses have been documented in the HPI. ROS Other: All systems not noted in ROS Statement are negative. Past Medical History Past Medical History: Musculoskeletal Disorder, Osteoarthritis (OA), Seizure Disorder Additional Past Medical History / Comment(s): DDD WITH LOWER BACK PAIN; SEIZURES CAUSED BY HYPOGLYCEMIA- LAST SEIZURE 2007, MITRAL VALVE PROLAPSE, HOLE IN RIGHT EAR DRUM - CAUSES BALANCE PROBLEMS., ANEMIA- STATES SHE DOES NOT MAKE IRON- HX OF INFUSIONS WITH DR CARR. History of Any Multi-Drug Resistant Organisms: None Reported Past Surgical History: Bariatric Surgery, Cholecystectomy, Orthopedic Surgery, Tubal Ligation Additional Past Surgical History / Comment(s): LT BUNIONECTOMY, GASTRIC BYPASS (1997). LT KNEE SCOPE. RT EAR SX. RT HAND SX. COLONOSCOPY AND EGD,PAIN PROCEDURE INJECTIONS Past Anesthesia/Blood Transfusion Reactions: No Reported Reaction, Motion Sickness Past Psychological History: No Psychological Hx Reported, Anxiety, Depression, Panic Disorder, PTSD Smoking Status: Former smoker Past Alcohol Use History: None Reported Past Drug Use History: None Reported - Past Family History Brother(s) Family Medical History: Deep Vein Thrombosis (DVT) Mother Family Medical History: No Reported History General Exam Limitations: no limitations General appearance: alert, in no apparent distress Respiratory exam: Present: normal lung sounds bilaterally. Absent: respiratory distress, wheezes, rales, rhonchi, stridor Cardiovascular Exam: Present: regular rate, normal rhythm, normal heart sounds. Absent: systolic murmur, diastolic murmur, rubs, gallop, clicks Extremities exam: Present: tenderness (Left ankle. Nonpitting edema noted.), normal capillary refill (2+ bilateral DP pulses.), calf tenderness (Left) Neurological exam: Present: alert, oriented X3, CN II-XII intact Skin exam: Present: warm, dry, intact, normal color. Absent: rash Course Vital Signs 10/16/24 10/16/24 16:08 17:54 Temperature 98.6 F Pulse Rate 81 67 Respiratory 18 18 Rate Blood Pressure 134/80 132/83 O2 Sat by Pulse 99 97 Oximetry Medical Decision Making - Medical Decision Making Was pt. sent in by a medical professional or institution (, PA, ECONOMIC GEOGRAPHER, urgent care, hospital, or usp...) When possible be specific @ -No Did you speak to anyone other than the patient for history (EMS, parent, family, police, friend...)? What history was obtained from this source @ -No Did you review nursing and triage notes (agree or disagree)? Why? @ -I reviewed and agree with nursing and triage notes Were old charts reviewed (outside hosp., previous admission, EMS record, old EKG, old radiological studies, urgent care reports/EKG's, usp records)? Report findings @ -No old charts were reviewed Differential Diagnosis (chest pain, altered mental status, abdominal pain women, abdominal pain men, vaginal bleeding, weakness, fever, dyspnea, syncope, headache, dizziness, GI bleed, back pain, seizure, CVA, palpatations, mental health, musculoskeletal)? @ -Differential Musculoskeletal: Muscular strain, contusion, ligament sprain, fracture, arthritis, septic arthritis, bursitis, cellulitis, muscle spasm, nerve compression, DVT, arterial occlusion, herpes zoster, electrolyte abnormality, tumor.... This is not meant to be in all inclusive list EKG interpreted by me (3pts min.). @ -None done X-rays interpreted by me (1pt min.). @ -Left ankle x-ray interpreted negative for acute fractures or dislocations. CT interpreted by me (1pt min.). @ -None done U/S interpreted by me (1pt. min.). @ -Ultrasound venous Doppler left lower extremity negative for acute evidence of DVT. What testing was considered but not performed or refused? (CT, X-rays, U/S, labs)? Why? @ -None What meds were considered but not given or refused? Why? @ -None Did you discuss the management of the patient with other professionals (professionals i.e. , PA, ECONOMIC GEOGRAPHER, lab, RT, psych nurse, manager social work, salad chef, teacher, chief legal officer, case operator)? Give summary @ -No Was smoking cessation discussed for >3mins.? @ -No Was critical care preformed (if so, how long)? @ -No Were there social determinants of health that impacted care today? How? (Homel essness, low income, unemployed, alcoholism, drug addiction, transportation, low edu. Level, literacy, decrease access to med. care, prison, rehab)? @ -No Was there de-escalation of care discussed even if they declined (Discuss DNR or withdrawal of care, Hospice)? DNR status @ -No What co-morbidities impacted this encounter? (DM, HTN, Smoking, COPD, CAD, Cancer, CVA, ARF, Chemo, Hep., AIDS, mental health diagnosis, sleep apnea, morbid obesity)? @ -None Was patient admitted / discharged? Hospital course, mention meds given and route, prescriptions, significant lab abnormalities, going to OR and other pertinent info. @ -Discharge. 64-year-old female presented to ER for evaluation of atraumatic left ankle pain and swelling. Vitals within acceptable limits. Exam remarkable for nonpitting edema noted to left ankle. Left calf tenderness noted. Patient is neurovascularly intact. X-rays obtained negative for acute fractures or dislocations. Given patient's history of blood clots not currently on a blood thinner with atraumatic pain/swelling, ultrasound venous Doppler LLE was performed and negative for acute evidence of DVT. Patient given ibuprofen for pain control. Patient will be placed in a stirrup splint and instructed to follow-up with PCP for further evaluation. Conservative treatment options discussed. Strict return parameters discussed. Patient discharged in stable condition. Patient verbally expressed understanding agree with care plan. Case discussed with ED attending, Dr. Hernandez. Undiagnosed new problem with uncertain prognosis? @ -No Drug Therapy requiring intensive monitoring for toxicity (Heparin, Nitro, Insulin, Cardizem)? @ -No Were any procedures done? @ -No Diagnosis/symptom? @ -Ankle sprain Acute, or Chronic, or Acute on Chronic? @ -Acute Uncomplicated (without systemic symptoms) or Complicated (systemic symptoms)? @ -Uncomplicated Side effects of treatment? @ -No Exacerbation, Progression, or Severe Exacerbation? @ -No Poses a threat to life or bodily function? How? (Chest pain, USA, [place], pneumonia, PE, COPD, DKA, ARF, appy, cholecystitis, CVA, Diverticulitis, Homicidal, Suicidal, threat to staff... and all critical care pts) @ -No - Radiology Data Radiology results: report reviewed, image reviewed Disposition Clinical Impression: Ankle sprain Disposition: HOME SELF-CARE Condition: Stable Instructions (If sedation given, give patient instructions): Ankle Sprain (DC) Additional Instructions: I recommend rest, ice, elevation and compression. Follow-up with PCP. Return to the ER for any new or worsening concerns. Is patient prescribed a controlled substance at d/c from ED?: No Referrals: Lino Santamaria DO [Primary Care Provider] - 1-2 days Time of Disposition: 17:44
[2024-10-16] MEDS: IBUPROFEN 600 MG TAB PO STA (17:09)
--- NOTE | 2024-10-16 17:32 | US ---
EXAMINATION TYPE: US venous doppler duplex LE LT DATE OF EXAM: 10/16/2024 5:21 PM COMPARISON: Previous ultrasound study 01/03/2021. CLINICAL INDICATION: Female, 64 years old with history of left ankle swelling no injury; No redness o r swelling. Not on blood thinners. , Pain TECHNIQUE: The lower extremity deep venous system is examined utilizing real time linear array sonog tobi with graded compression, color doppler sonography, and spectral doppler. SIDE PERFORMED: Left FINDINGS: VESSELS IMAGED: Common Femoral Vein Deep Femoral Vein Greater Saphenous Vein * Femoral Vein Popliteal Vein Small Saphenous Vein * Proximal Calf Veins (* superficial vessels) Left Leg: Negative for DVT, Color Doppler imaging shows patency of the vessels. Spectral waveforms a re within normal limits. IMPRESSION: No ultrasound evidence for deep venous thrombosis. [facility], , 10/16/2024 5:29 PM
[2024-10-16 17:58] VITALS: BP 132/83; PULSE 67
== END 2024-10-16 17:59 | disposition home or self-care (01) ==
LOC: EC 15:56
DX: S93.402A Sprain of unspecified ligament of left ankle, initial encounter (principal); Z87.891 Personal history of nicotine dependence; X58.XXXA Exposure to other specified factors, initial encounter
CPT/HCPCS: 99284

== ENCOUNTER 2024-11-11 09:44 | Emergency (ER) | payer OTHER ==
[2024-11-11 10:11] VITALS: RESP 18
--- NOTE | 2024-11-11 10:32 | ED ---
General Adult HPI - General Chief complaint: Extremity Injury, Lower Stated complaint: left foot issue Time Seen by Provider: 11/11/24 10:14 Source: patient Mode of arrival: ambulatory - History of Present Illness Initial comments: 64-year-old female presenting to the emergency department for complaint of nontraumatic left foot and ankle pain. Patient states that she has been experiencing pain over the outside of her ankle addition to the top of her foot however denies any traumas or injuries. Patient states that she is extremely active and enjoys walking and using her electrical. Additionally, states that she is moving next week and has been doing a lot of moving around her house packing boxes. Patient is able to bear weight however endorses pain to the top of her foot. She denies paresthesias, fevers, chills. Is prescribed gabapentin for chronic back pain. - Related Data Home Medications Medication Instructions Recorded Confirmed Topiramate [Topamax] 50 mg PO DAILY 01/03/21 11/11/24 Furosemide [Lasix] 20 mg PO DAILY 11/11/24 11/11/24 Gabapentin 600 mg PO BID 11/11/24 11/11/24 Meclizine [Antivert] 25 mg PO DAILY 11/11/24 11/11/24 Allergies Allergy/AdvReac Type Severity Reaction Status Date / Time iron dextran complex Allergy Anaphylaxis Verified 11/11/24 11:33 [From Infed] atomoxetine [From Strattera] AdvReac Nausea & Verified 11/11/24 11:46 Vomiting codeine AdvReac Vomiting/It Verified 11/11/24 11:33 avril Review of Systems ROS Statement: Those systems with pertinent positive or pertinent negative responses have been documented in the HPI. ROS Other: All systems not noted in ROS Statement are negative. Past Medical History Past Medical History: Musculoskeletal Disorder, Osteoarthritis (OA), Seizure Disorder Additional Past Medical History / Comment(s): DDD WITH LOWER BACK PAIN; SEIZURES CAUSED BY HYPOGLYCEMIA- LAST SEIZURE 2007, MITRAL VALVE PROLAPSE, HOLE IN RIGHT EAR DRUM - CAUSES BALANCE PROBLEMS., ANEMIA- STATES SHE DOES NOT MAKE IRON- HX OF INFUSIONS WITH DR CARR. History of Any Multi-Drug Resistant Organisms: None Reported Past Surgical History: Bariatric Surgery, Cholecystectomy, Orthopedic Surgery, Tubal Ligation Additional Past Surgical History / Comment(s): LT BUNIONECTOMY, GASTRIC BYPASS (1997). LT KNEE SCOPE. RT EAR SX. RT HAND SX. COLONOSCOPY AND EGD,PAIN PROCEDURE INJECTIONS Past Anesthesia/Blood Transfusion Reactions: No Reported Reaction, Motion Sickness Past Psychological History: No Psychological Hx Reported, Anxiety, Depression, Panic Disorder, PTSD Smoking Status: Former smoker Past Alcohol Use History: None Reported Past Drug Use History: None Reported - Past Family History Brother(s) Family Medical History: Deep Vein Thrombosis (DVT) Mother Family Medical History: No Reported History General Exam General appearance: alert, in no apparent distress ENT exam: Present: normal exam, mucous membranes moist Respiratory exam: Present: normal lung sounds bilaterally. Absent: respiratory distress, wheezes, rales, rhonchi, stridor Cardiovascular Exam: Present: regular rate, normal rhythm, normal heart sounds. Absent: systolic murmur, diastolic murmur, rubs, gallop, clicks GI/Abdominal exam: Present: soft, normal bowel sounds. Absent: distended, tenderness, guarding, rebound, rigid Left Ankle exam: Present: tenderness, swelling. Absent: abrasion, laceration, ecchymosis, deformity Foot/Toe exam: Present: tenderness, swelling. Absent: ecchymosis, deformity, crepitus, dislocation Neurovascular tendon exam: Present: no vascular compromise Back exam: Present: normal inspection Course Vital Signs 11/11/24 11/11/24 10:07 11:51 Temperature 98.6 F 98.4 F Pulse Rate 85 81 Respiratory 18 18 Rate Blood Pressure 117/78 115/82 O2 Sat by Pulse 98 98 Oximetry Medical Decision Making - Medical Decision Making Was pt. sent in by a medical professional or institution (, PA, TERMINAL GAUGER SUPERVISOR, urgent care, hospital, or skilled nursing...) When possible be specific @ -No Did you speak to anyone other than the patient for history (EMS, parent, family, police, friend...)? What history was obtained from this source @ -No Did you review nursing and triage notes (agree or disagree)? Why? @ -I reviewed and agree with nursing and triage notes Were old charts reviewed (outside hosp., previous admission, EMS record, old EKG , old radiological studies, urgent care reports/EKG's, skilled nursing records)? Report findings @ -No old charts were reviewed Differential Diagnosis (chest pain, altered mental status, abdominal pain women, abdominal pain men, vaginal bleeding, weakness, fever, dyspnea, syncope, headache, dizziness, GI bleed, back pain, seizure, CVA, palpatations, mental health, musculoskeletal)? @ -Differential Musculoskeletal Muscular strain, contusion, ligament sprain, fracture, arthritis, septic arthritis, bursitis, cellulitis, muscle spasm, nerve compression, DVT, arterial occlusion, herpes zoster, electrolyte abnormality, tumor.... This is not meant to be in all inclusive list EKG interpreted by me (3pts min.). @ -None X-rays interpreted by me (1pt min.). @ -X-ray of the left foot and ankle reveals demineralization with no acute fracture/dislocation with a calcaneal spur and postsurgical changes of the first metatarsal with no overlying soft tissue changes. CT interpreted by me (1pt min.). @ -None done U/S interpreted by me (1pt. min.). @ -None done What testing was considered but not performed or refused? (CT, X-rays, U/S, labs)? Why? @ -None What meds were considered but not given or refused? Why? @ -None Did you discuss the management of the patient with other professionals (professionals i.e. , PA, TERMINAL GAUGER SUPERVISOR, lab, RT, psych nurse, socially responsible investment adviser, photo engraver, teacher, coastal/harbor defense officer, employment case manager)? Give summary @ -No Was smoking cessation discussed for >3mins.? @ -No Was critical care preformed (if so, how long)? @ -No Were there social determinants of health that impacted care today? How? (Homelessness, low income, unemployed, alcoholism, drug addiction, transportation, low edu. Level, literacy, decrease access to med. care, retirement, rehab)? @ -No Was there de-escalation of care discussed even if they declined (Discuss DNR or withdrawal of care, Hospice)? DNR status @ -No What co-morbidities impacted this encounter? (DM, HTN, Smoking, COPD, CAD, Cancer, CVA, ARF, Chemo, Hep., AIDS, mental health diagnosis, sleep apnea, morbid obesity)? @ -None Was patient admitted / discharged? Hospital course, mention meds given and route, prescriptions, significant lab abnormalities, going to OR and other pertinent info. @ -Discharge. 64 year old female presents emergency department with left foot and ankle pain. There is mild edema noted of the left foot and ankle with no obvious deformity. Pedal pulse intact. Neurovascularly intact of the left lower extremity. She is evaluated with dose of Toradol and [place] for pain relief. X-rays are unremarkable. Recommend supportive treatment at home. Case discussed with Dr. Dickerson Undiagnosed new problem with uncertain prognosis? @ -No Drug Therapy requiring intensive monitoring for toxicity (Heparin, Nitro, Insul in, Cardizem)? @ -No Were any procedures done? @ -No Diagnosis/symptom? @ -ankle sprain Acute, or Chronic, or Acute on Chronic? @ -acute Uncomplicated (without systemic symptoms) or Complicated (systemic symptoms)? @ -uncomplicated Side effects of treatment? @ -No Exacerbation, Progression, or Severe Exacerbation? @ -No Poses a threat to life or bodily function? How? (Chest pain, USA, [place], pneumonia, PE, COPD, DKA, ARF, appy, cholecystitis, CVA, Diverticulitis, Homicidal, Suicidal, threat to staff... and all critical care pts) @ -No Disposition Clinical Impression: Foot sprain Disposition: HOME SELF-CARE Condition: Good Instructions (If sedation given, give patient instructions): Foot Sprain (ED) Additional Instructions: Please return to the Emergency Department if symptoms worsen or any other concerns. Is patient prescribed a controlled substance at d/c from ED?: No Referrals: Lino Santamaria DO [Primary Care Provider] - 1-2 days Time of Disposition: 11:41
[2024-11-11] MEDS: KETOROLAC 15 MG/ML 1 ML VIAL IM STA (10:40)
[2024-11-11] MEDS: HYDROcodone/APAP 5-325MG 1 EACH TAB PO STA (10:41)
--- NOTE | 2024-11-11 11:21 | XR ---
EXAMINATION TYPE: XR ankle complete LT, XR foot complete LT DATE OF EXAM: 11/11/2024 CLINICAL INDICATION: Female, 64 years old with history of swelling, pain, pain TECHNIQUE: Frontal, lateral and oblique images of the left ankle and foot are obtained. COMPARISON: Left ankle x-ray October 16, 2024. FINDINGS: Demineralization is present. There is no acute fracture/dislocation evident in the left an kle or foot. The ankle mortise remains within normal limits. Small to moderate size inferior calcane al spur is redemonstrated. Postsurgical changes of the first metatarsal is present. Overlying soft ti ssue is unremarkable. IMPRESSION: As above. [facility], , 11/11/2024 11:18 AM
[2024-11-11 11:54] VITALS: BP 115/82; PULSE 81; TEMP 98.4
== END 2024-11-11 11:51 | disposition home or self-care (01) ==
LOC: EC 09:44
DX: S93.402A Sprain of unspecified ligament of left ankle, initial encounter (principal); S93.602A Unspecified sprain of left foot, initial encounter; Z88.8 Allergy status to other drugs, medicaments and biological substances; Z88.5 Allergy status to narcotic agent; Z87.891 Personal history of nicotine dependence
CPT/HCPCS: 73610; 73630; 99283; 96372; J1885

== ENCOUNTER → 2024-11-11 | Outpatient (CLI) | payer OTHER ==
--- NOTE | 2024-11-11 09:54 | MM ---
Reason for Exam: Screening (asymptomatic). Last mammogram was performed 1 year(s) and 2 month(s) ago. Patient History: Menarche at age 16. First Full-Term at age 19. Postmenopausal. Risk Values: Zoe 5 year model risk: 1.0%. NCI Lifetime model risk: 4.4%. Prior Study Comparison: 08/22/2022 Bilateral MG screening mammo w [facility], [facility]. 08/29/2022 Left MG work up mamm w CAD , [facility]. 09/11/2023 Bilateral MG screening mammo w CAD, [facility]. Tissue Density: The breasts are heterogeneously dense, which may obscure small masses. Findings: Analyzed By CAD. There is no suspicious group of microcalcifications or new suspicious mass in either breast. Overall Assessment: Negative, BI-RAD 1 Management: Screening Mammogram of both breasts in 1 year. . Patient should continue monthly self-breast exams. A clinical breast exam by your physician is recommended on an annual basis. This exam should not preclude additional follow-up of suspicious palpable abnormalities. Note on Zoe scores and lifetime risk: 1. A Zoe score greater than 3% is considered moderate risk. If this is the case, consider specialist referral to assess eligibility for a risk reducing agent. 2. If overall lifetime risk for the development of breast cancer is 20% or higher, the patient may qualify for future screening with alternating mammogram and breast MRI. [facility], , 11/11/2024 9:50 AM. Electronically signed and approved by: David Bone M.D. Radiologis
== END | disposition home or self-care (01) ==
LOC: RADMAMWWP 09:30
PROVIDERS: ATTEND Family Medicine
DX: Z12.31 Encounter for screening mammogram for malignant neoplasm of breast (principal); R92.333 Mammographic heterogeneous density, bilateral breasts; Z78.0 Asymptomatic menopausal state
CPT/HCPCS: 77063; 77067

== ENCOUNTER 2024-11-26 00:13 | Emergency (ER) | payer OTHER ==
[2024-11-26 00:39] VITALS: TEMP 97.9
[2024-11-26] MEDS: LIDOCAINE 4% PATCH TOPICAL ONE (01:47)
[2024-11-26] MEDS: DEXAMETHASONE SOD PHOSPHATE 10 MG/ML 1 ML VIAL IM STA (01:48)
[2024-11-26] MEDS: KETOROLAC 15 MG/ML 1 ML VIAL IM STA (01:48)
--- NOTE | 2024-11-26 03:44 | XR ---
EXAM: XR Thoracic Spine, 2 Views CLINICAL HISTORY: ITS.REASON XR Reason: fall TECHNIQUE: Frontal and lateral views of the thoracic spine. COMPARISON: No relevant prior studies available. FINDINGS: Vertebrae: Chronic deformities of T11 and T12 with cement. No acute fracture. Normal sagittal alignment. Levoscoliosis. Disc spaces: Mild degeneration. Soft tissues: Unremarkable. IMPRESSION: No acute osseous findings.
--- NOTE | 2024-11-26 03:49 | XR ---
EXAM: XR Lumbosacral Spine, 2 or 3 Views CLINICAL HISTORY: ITS.REASON XR Reason: fall TECHNIQUE: Frontal and lateral views of the lumbar spine and sacrum. COMPARISON: 04/29/2023 FINDINGS: Vertebrae: No acute fracture. Normal sagittal alignment. Disc spaces: Degenerative changes. Soft tissues: Unremarkable. IMPRESSION: No acute findings.
--- NOTE | 2024-11-26 04:25 | ED ---
Back Pain HPI - General Chief Complaint: Back Pain/Injury Stated Complaint: back pain Time Seen by Provider: 11/26/24 00:40 Source: patient Limitations: no limitations - History of Present Illness Initial Comments: 64-year-old female presenting with chief complaint of back pain. Patient reports that earlier today she was at a [employer] and fell backwards hitting her back on a piece of wood. She is having pain from the mid to the lower back. No loss of bowel or bladder control or saddle paresthesia. No bruising or swelling. No abdominal pain. No chest pain or difficulty breathing. No fever nausea or vomiting. No radiation of pain down the legs. No numbness or tingling. She does have a history of chronic back pain. Worse with changing positions - Related Data Home Medications Medication Instructions Recorded Confirmed Topiramate [Topamax] 50 mg PO DAILY 01/03/21 11/27/24 Furosemide [Lasix] 20 mg PO DAILY 11/11/24 11/27/24 Gabapentin 600 mg PO BID 11/11/24 11/27/24 Meclizine [Antivert] 25 mg PO DAILY 11/11/24 11/27/24 Cholecalciferol (Vitamin D3) 1,250 mcg PO Q7D 11/28/24 11/28/24 [Vitamin D3 (1250 Mcg = 50,000 Iu)] Allergies Allergy/AdvReac Type Severity Reaction Status Date / Time iron dextran complex Allergy Anaphylaxis Verified 11/27/24 12:42 [From Infed] atomoxetine [From Strattera] AdvReac Nausea & Verified 11/27/24 12:42 Vomiting codeine AdvReac Vomiting/It Verified 11/27/24 12:42 avril Review of Systems ROS Statement: Those systems with pertinent positive or pertinent negative responses have been documented in the HPI. ROS Other: All systems not noted in ROS Statement are negative. Past Medical History Past Medical History: Musculoskeletal Disorder, Osteoarthritis (OA), Seizure Disorder Additional Past Medical History / Comment(s): DDD WITH LOWER BACK PAIN; SEIZURES CAUSED BY HYPOGLYCEMIA- LAST SEIZURE 2007, MITRAL VALVE PROLAPSE, HOLE IN RIGHT EAR DRUM - CAUSES BALANCE PROBLEMS., ANEMIA- STATES SHE DOES NOT MAKE IRON- HX OF INFUSIONS WITH DR CARR. History of Any Multi-Drug Resistant Organisms: None Reported Past Surgical History: Bariatric Surgery, Cholecystectomy, Orthopedic Surgery, Tubal Ligation Additional Past Surgical History / Comment(s): LT BUNIONECTOMY, GASTRIC BYPASS (1997). LT KNEE SCOPE. RT EAR SX. RT HAND SX. COLONOSCOPY AND EGD,PAIN PROCEDURE INJECTIONS Past Anesthesia/Blood Transfusion Reactions: No Reported Reaction, Motion Sickness Past Psychological History: No Psychological Hx Reported, Anxiety, Depression, Panic Disorder, PTSD Smoking Status: Former smoker Past Alcohol Use History: Occasional Past Drug Use History: None Reported - Past Family History Brother(s) Family Medical History: Deep Vein Thrombosis (DVT) Mother Family Medical History: No Reported History General Exam Limitations: no limitations General appearance: alert, in no apparent distress Head exam: Present: atraumatic, normocephalic, normal inspection Eye exam: Present: normal appearance, EOMI Neck exam: Present: normal inspection. Absent: meningismus Respiratory exam: Present: normal lung sounds bilaterally. Absent: respiratory distress, wheezes, rales, rhonchi, stridor Cardiovascular Exam: Present: regular rate, normal rhythm, normal heart sounds. Absent: systolic murmur, diastolic murmur, rubs, gallop, clicks Extremities exam: Present: normal inspection, full ROM Back exam: Present: normal inspection, tenderness Neurological exam: Present: alert, oriented X3 Psychiatric exam: Present: normal affect, normal mood Skin exam: Present: warm, dry, normal color Course Vital Signs 11/26/24 11/26/24 00:27 04:32 Temperature 97.9 F 97.9 F Pulse Rate 95 93 Respiratory 18 14 Rate Blood Pressure 90/59 96/63 O2 Sat by Pulse 97 96 Oximetry Medical Decision Making - Medical Decision Making Was pt. sent in by a medical professional or institution (, PA, SENIOR COST ANALYST, urgent care, hospital, or skilled nursing...) When possible be specific @ -No Did you speak to anyone other than the patient for history (EMS, parent, family, police, friend...)? What history was obtained from this source @ -No Did you review nursing and triage notes (agree or disagree)? Why? @ -I reviewed and agree with nursing and triage notes Were old charts reviewed (outside hosp., previous admission, EMS record, old EKG, old radiological studies, urgent care reports/EKG's, skilled nursing records)? Report findings @ -No old charts were reviewed Differential Diagnosis (chest pain, altered mental status, abdominal pain women, abdominal pain men, vaginal bleeding, weakness, fever, dyspnea, syncope, headache, dizziness, GI bleed, back pain, seizure, CVA, palpatations, mental health, musculoskeletal)? @ - [facility] Differential Back Pain: Strain, zoster, cauda equina syndrome, epidural abscess, vertebral osteomyelitis, discitis, fracture, subluxation, disc herniation, DJD, spinal stenosis, dissection, AAA, pancreatitis, peptic ulcer disease, pyelonephritis, kidney stone… this is not meant to be an all-inclusive list. EKG interpreted by me (3pts min.). @ -As above X-rays interpreted by me (1pt min.). @ -no acute process seen on thoracic or lumbar spine x-ray CT interpreted by me (1pt min.). @ -None done U/S interpreted by me (1pt. min.). @ -None done What testing was considered but not performed or refused? (CT, X-rays, U/S, labs)? Why? @ -None What meds were considered but not given or refused? Why? @ -None Did you discuss the management of the patient with other professionals (professionals i.e. , PA, SENIOR COST ANALYST, lab, RT, psych nurse, drug abuse social worker, concession attendant, teacher, weapons officer, pillowcase cutter)? Give summary @ -No Was smoking cessation discussed for >3mins.? @ -No Was critical care preformed (if so, how long)? @ -No Were there social determinants of health that impacted care today? How? (Homelessness, low income, unemployed, alcoholism, drug addiction, transportation, low edu. Level, literacy, decrease access to med. care, retirement, rehab)? @ -No Was there de-escalation of care discussed even if they declined (Discuss DNR or withdrawal of care, Hospice)? DNR status @ -No What co-morbidities impacted this encounter? (DM, HTN, Smoking, COPD, CAD, Cancer, CVA, ARF, Chemo, Hep., AIDS, mental health diagnosis, sleep apnea, morbid obesity)? @ -None Was patient admitted / discharged? Hospital course, mention meds given and route, prescriptions, significant lab abnormalities, going to OR and other pertinent info. @ -64-year-old female presenting with chief complaint of back pain after a fall today. No red flag symptoms. History and physical examination are conducted. Patient is given pain medication. No acute process seen on x-ray. On reassessment the patient is resting comfortably in the stretcher showing no acute signs of distress. She is educated on today's findings. She reports that her pain is significantly improved and she feels ready to go home. Follow-up with PCP. Report back to ER with any new or worsening symptoms. Discussed return parameters and answered all questions. Patient conveyed verbal understanding and agreed to the plan. I discussed this case in detail with my attending Dr. Gautam Undiagnosed new problem with uncertain prognosis? @ -No Drug Therapy requiring intensive monitoring for toxicity (Heparin, Nitro, Insulin, Cardizem)? @ -No Were any procedures done? @ -No Diagnosis/symptom? @ -Strain of lumbar region Acute, or Chronic, or Acute on Chronic? @ -Acute Uncomplicated (without systemic symptoms) or Complicated (systemic symptoms)? @ -Uncomplicated Side effects of treatment? @ -No Exacerbation, Progression, or Severe Exacerbation? @ -No Poses a threat to life or bodily function? How? (Chest pain, [place], [place], pneumonia, PE, COPD, DKA, ARF, appy, cholecystitis, CVA, Diverticulitis, Homicidal, Suicidal, threat to staff... and all critical care pts) @ -Unlikely Disposition Clinical Impression: Strain of lumbar region Disposition: HOME SELF-CARE Condition: Good Instructions (If sedation given, give patient instructions): Acute Low Back Pain (ED) Additional Instructions: Follow-up with PCP. Report back to ER with any new or worsening symptoms. Is patient prescribed a controlled substance at d/c from ED?: No Referrals: Lino Santamaria DO [Primary Care Provider] - 1-2 days Time of Disposition: 04:25
[2024-11-26 04:44] VITALS: BP 96/63; PULSE 93; RESP 14
== END 2024-11-26 04:32 | disposition home or self-care (01) ==
LOC: EC 00:13
DX: S39.012A Strain of muscle, fascia and tendon of lower back, initial encounter (principal); Z87.891 Personal history of nicotine dependence; Z88.5 Allergy status to narcotic agent; Z88.8 Allergy status to other drugs, medicaments and biological substances; W01.198A Fall on same level from slipping, tripping and stumbling with subsequent striking against other object, initial encounter
CPT/HCPCS: 72072; 72110; 99283; 96372 ×2; J1100; J1885

== ENCOUNTER 2024-11-26 20:59 | Inpatient (IN) | payer OTHER, MEDICAID ==
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
[2024-11-26 23:03] LABS: Amphetamine Screen,Urine Detected (NotDetected); Barbiturate Screen,Urine Not Detected (NotDetected); Benzodiazepines Screen,Urine Detected (NotDetected); Cocaine Screen,Urine Not Detected (NotDetected); Methadone Screen, Urine Not Detected (NotDetected); Opiate Screen,Urine Not Detected (NotDetected); Oxycodone Screen, Urine Detected (NotDetected); Phencyclidine Screen,Urine Not Detected (NotDetected); Tricyclic Antidepressant,Urine Not Detected (NotDetected); Urn Cannabinoid Scrn Detected (NotDetected)
[2024-11-27] MEDS ORDERED: MAGNESIUM HYDROXIDE 2,400 MG/30 ML CUP PO PRN (01:36)
[2024-11-27] MEDS ORDERED: LORazepam 1 MG TAB PO PRN (01:36)
[2024-11-27] MEDS ORDERED: HALOPERIDOL LACTATE 5 MG/ML 1 ML VIAL IM PRN (01:36)
[2024-11-27] MEDS ORDERED: LORazepam 2 MG/ML INJ IM PRN (01:36)
[2024-11-27] MEDS ORDERED: MAG HYDROX/AL HYDROX/SIMETH 355 ML BOTTLE PO PRN (01:36)
[2024-11-27] MEDS ORDERED: IBUPROFEN 600 MG TAB PO PRN (01:36)
[2024-11-27] MEDS ORDERED: haloperidoL 5 MG TAB PO PRN (01:36)
[2024-11-27] MEDS: GABAPENTIN 300 MG CAP PO SCH (08:47)
[2024-11-27] MEDS: TOPIRAMATE 25 MG TAB PO SCH (08:48)
[2024-11-27] MEDS: MECLIZINE 25 MG TAB PO SCH (10:28)
[2024-11-27] MEDS: FUROSEMIDE 20 MG TAB PO SCH (10:28)
[2024-11-27] MEDS: NICOTINE 14MG/24HR PATCH TRANSDERM SCH (10:28)
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
[2024-11-27] MEDS: MIRTAZAPINE 15 MG TAB PO SCH (20:46)
[2024-11-27] MEDS: NAPROXEN 250 MG TAB PO PRN (20:46)
[2024-11-27] MEDS: traZODone HCL 50 MG TAB PO PRN (20:47)
[2024-11-28 08:29] LABS: Basophils # (A) 0.03 10*3/uL (0.00-0.10); Basophils % (A) 0.6 %; Eosinophils # (A) 0.14 10*3/uL (0.04-0.35); HCT 32.2 % (37.2-46.3); HGB 9.9 g/dL (12.0-15.0); Lymphocytes # (A) 1.33 10*3/uL (0.90-5.00); Lymphocytes % (A) 28.7 %; MCH 27.5 pg (27.0-32.0); MCHC 30.7 g/dL (32.0-37.0); MCV 89.4 fL (80.0-97.0); Mean Platelet Volume 8.2 fL (9.5-12.2); Monocytes # (A) 0.35 10*3/uL (0.20-1.00); Monocytes % (A) 7.5 %; Neutrophils # (A) 2.77 10*3/uL (1.80-7.70); Neutrophils % (A) 59.8 %; Platelet Count 412 10*3/uL (140-440); RDW 16.3 % (11.5-14.5); WBC 4.64 10*3/uL (4.50-10.00)
[2024-11-28 08:57] LABS: ALT 14 U/L (4-34); AST 17 U/L (14-36); African American GFR (CKD) 67 (>60 ml/min/1.73 sqM); Albumin 2.6 g/dL (3.5-5.0); Alkaline Phosphatase 144 U/L (38-126); Anion Gap 4 mmol/L; Bilirubin, Delta 0.3 mg/dL (0.0-0.2); Bilirubin,Unconjugated 0.2 mg/dL (0.0-1.1); Blood Urea Nitrogen 30 mg/dL (7-17); Calcium 8.2 mg/dL (8.4-10.2); Carbon Dioxide 26 mmol/L (22-30); Chloride 105 mmol/L (98-107); Glucose 78 mg/dL (74-99); Non-African American GFR(CKD) 58 (>60 ml/min/1.73 sqM); Potassium 4.4 mmol/L (3.5-5.1); Sodium 135 mmol/L (137-145); Total Bilirubin 0.5 mg/dL (0.2-1.3); Total Protein 5.2 g/dL (6.3-8.2)
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
[2024-11-28] MEDS: LITHIUM CARBONATE 150 MG CAP PO SCH (15:00)
[2024-11-28 15:48] LABS: Chol/HDL Ratio 2.47 Ratio; LDL Cholesterol,Calculated 54.8 mg/dL (0.0-131.0); VLDL Calculation 15.42 mg/dL (5.00-40.00)
[2024-11-28] MEDS: SERTRALINE 50 MG TAB PO SCH (20:38)
[2024-11-28] MEDS: QUEtiapine 50 MG TAB PO SCH (20:38)
[2024-11-28] MEDS: ACETAMINOPHEN TAB 325 MG TAB PO PRN (20:40)
[2024-11-28] MEDS ORDERED: traZODone HCL 100 MG TAB PO SCH (21:00)
--- NOTE | 2024-11-29 11:50 | P.PN ---
Progress Note - Text Progress Note Date: 11/29/24 Interval History: Patient was seen playing cards today in the activity group and was directable and agreeable to speak with automatic typewriter inspector. she appears to have improvement in her hygiene and grooming today. she is less preoccupied today with her daughter and sister. states that she is still upset at them but working on her progress here on the unit. States that her mood and anxiety have been a bit better, she was less argumentative today less irritable. Was minimizing her methamphetamine use declined rehab at this time believes that it was just a "slip up" and wants to cut back on her own. Claims that she was able to sleep fairly last night has been eating well. Insight and judgment remain poor however improving mildly. At this time patient denies any suicidal or homical ideations, intent or plan. Patient denies any auditory, visual hallucinations. Patient denies any side effects from the medications and has been compliant with meds. Mental Status Exam: General Appearance: Patient appears to be laying in bed, stated age is alert, less irritable and attempts to be cooperative. Behavior: Patient is calmly seated without any agitated behavior. Less Irritable, less argumentative Speech: Patient's speech is fluent and nonpressured. Mood/Affect: Mood is improving mildly, affect is congruent and constricted. improving mildly Suicidality/Homicidality: Patient denies having any suicidal or homicidal ideation intent or plan. Perceptions: Patient denies any visual hallucinations and denies any auditory hallucinations Though content/process: less paranoia about her daughter and her sister, believes that they are cashing and checks today at the bank from her bank account. less argumentative Memory and concentration: AOX3, grossly intact for the purposes of this session Judgment and insight: Poor, improving mildly Assessment Bipolar disorder, with psychotic features Anxiety disorder unspecified Methamphetamine use disorder Cannabis use disorder Nicotine dependence Plan: -Patient continues to meet criteria for inpatient psychiatric admission for symptom stabilization and safety. Patient has signed adult voluntary form and was placed in patient's chart. -Medications: Seroquel 50 mg nightly for mood stabilization/psychosis/insomnia, lithium 150 mg twice daily for mood stabilization, Zoloft 50 mg nightly for mood/anxiety. -When necessary Ativan and Haldol for agitation/aggression. -NRT -nicotine patch -SW on board for discharge planning. Encouraged the patient to participate in milieu. offered rehab and patient declined at this time. patient claims that she is homeless at this time.
[2024-11-29] MEDS: GABAPENTIN 300 MG CAP PO SCH (16:14)
--- NOTE | 2024-11-30 12:34 | P.PN ---
Progress Note - Text Progress Note Date: 11/30/24 Interval History: Patient was seen today after taking a shower. She claims that she is doing a bit better today, denies any depression or anxiety. States that the lithium has been help her keep her mood stable. She states that she is having a bit of difficulty sleeping at nighttime and described possibly sleep rhythm issues are environmental issues with her sleep, was agreeable to try melatonin tonight. We spoke again about rehab and she claims that she would like to give them a call today and we also spoke about potential discharge tomorrow which she would have to go to her mother's house. She claims that she is eating a bit better at this time, denies any other significant issues with her medications. Insight and judgment are improving mildly. At this time patient denies any suicidal or homical ideations, intent or plan. Patient denies any auditory, visual hallucinations. Patient denies any side effects from the medications and has been compliant with meds. Mental Status Exam: General Appearance: Patient appears to be laying in bed, stated age is alert, improving and attempts to be cooperative. Behavior: Patient is calmly seated without any agitated behavior. More cooperative today Speech: Patient's speech is fluent and nonpressured. Mood/Affect: Mood is improving mildly, affect is congruent and constricted. improving mildly Suicidality/Homicidality: Patient denies having any suicidal or homicidal ideation intent or plan. Perceptions: Patient denies any visual hallucinations and denies any auditory hallucinations Though content/process: Not argumentative today, not preoccupied with her sister or her daughter. Appears to be a bit more future oriented. More goal oriented Memory and concentration: AOX3, grossly intact for the purposes of this session Judgment and insight: improving mildly Assessment Bipolar disorder, with psychotic features Anxiety disorder unspecified Methamphetamine use disorder Cannabis use disorder Nicotine dependence Plan: -Patient continues to meet criteria for inpatient psychiatric admission for symptom stabilization and safety. Patient has signed adult voluntary form and was placed in patient's chart. -Medications: Seroquel 50 mg nightly for mood stabilization/psychosis/insomnia, lithium 150 mg twice daily for mood stabilization, Zoloft 50 mg nightly for mood/anxiety. added melatonin 6 mg qhs for sleep. -When necessary Ativan and Haldol for agitation/aggression. -NRT - nicotine patch -SW on board for discharge planning. Encouraged the patient to participate in milieu. patient claims that she is homeless at this time. she initially declined rehab however today appears to be more interested in calling the screening line. she may either have to go to [facility] or stay in custodial upon discharge, will likely discharge tomorrow if patient is improving.
[2024-11-30] MEDS: GABAPENTIN 300 MG CAP PO SCH (12:35)
[2024-11-30] MEDS: MELATONIN 3 MG TABLET PO SCH (20:57)
[2024-12-01 08:29] VITALS: RESP 18
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
[2024-12-01] MEDS: QUEtiapine 100 MG TAB PO SCH (20:57)
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
[2024-12-02 11:49] VITALS: BP 89/52; PULSE 69; TEMP 97.1
== END 2024-12-02 15:38 | disposition home or self-care (01) | DRG 885 ==
LOC: EC 20:59 → 3MHU 11-27 01:26
PROVIDERS: ADMIT Psychiatry & Neurology Psychiatry; ATTEND Psychiatry & Neurology Psychiatry
DX: F31.9 Bipolar disorder, unspecified (principal); F29 Unspecified psychosis not due to a substance or known physiological condition; G40.909 Epilepsy, unspecified, not intractable, without status epilepticus; F12.10 Cannabis abuse, uncomplicated; G25.81 Restless legs syndrome; I34.1 Nonrheumatic mitral (valve) prolapse; F15.20 Other stimulant dependence, uncomplicated; Z59.00 Homelessness unspecified; R45.1 Restlessness and agitation; F17.200 Nicotine dependence, unspecified, uncomplicated; F41.0 Panic disorder [episodic paroxysmal anxiety]; M19.90 Unspecified osteoarthritis, unspecified site; G47.00 Insomnia, unspecified; G89.29 Other chronic pain; R45.850 Homicidal ideations; Z79.899 Other long term (current) drug therapy; Z98.84 Bariatric surgery status; Z11.52 Encounter for screening for COVID-19; Z88.5 Allergy status to narcotic agent; Z88.8 Allergy status to other drugs, medicaments and biological substances; Z71.51 Drug abuse counseling and surveillance of drug abuser
CPT/HCPCS: 80053; 80061; 80306; 82075; 82248; 83036; 84443; 85025; 87635; 99285